=== PATIENT | female | born 1965 | race Caucasian/White ===

== ENCOUNTER 2022-09-03 09:23 | Outpatient (CLI) | payer BC, SELFPAY ==
--- NOTE | ~2022-09-03 | MM_ITS ---
EXAMINATION: MM screening braulio BI w laurie HISTORY: Screening TECHNIQUE: Craniocaudal and mediolateral oblique 3-D tomosynthesis images were obtained and synthetic 2-D images were generated. CAD analysis was submitted and interpreted. COMPARISON: No prior mammogram is available for comparison at this institution. BREAST PARENCHYMAL COMPOSITION: . FINDINGS: New focal asymmetry is present in the central aspect of the right breast on right CC view. The left breast is stable without evidence for malignancy. IMPRESSION: 1. New focal right breast asymmetry. 2. Additional mammographic views and possible breast ultrasound are recommended. BI-RADS Category 0: Incomplete: Needs additional imaging evaluation. Reviewed, dictated and finalized at location A. ARCH MANAGER IMPRESSION: 1. New focal right breast asymmetry. 2. Additional mammographic views and possible breast ultrasound are recommended . BI-RADS Category 0: Incomplete: Needs additional imaging evaluation.
== END 2022-09-03 09:24 | disposition home or self-care (01) ==
PROVIDERS: PCP Family Medicine Adolescent Medicine; Visit Provider Obstetrics & Gynecology
DX: Z12.31 Encounter for screening mammogram for malignant neoplasm of breast (principal); R92.8 Other abnormal and inconclusive findings on diagnostic imaging of breast
CPT/HCPCS: 77063; 77067

== ENCOUNTER 2022-09-29 12:48 | Outpatient (CLI) | payer BC, SELFPAY ==
--- NOTE | ~2022-09-29 | MM_ITS ---
EXAMINATION: MM diagnostic braulio RT w laurie HISTORY: Right breast asymmetry on screening mammogram TECHNIQUE: Additional 3-D tomosynthesis images of the right breast were performed and synthetic 2-D i mages were generated. CAD analysis was submitted and interpreted. COMPARISON: 09/03/2022, 07/20/2017, 11/11/2010 FINDINGS: There is a return to baseline fibroglandular appearance with spot compression of the right breast in the area questioned on screening mammogram. IMPRESSION: 1. No mammographic evidence of malignancy. 2. Recommend routine screening mammography in one year. BI-RADS Category 1: Negative Reviewed, dictated and finalized at location A. NESS CONSULTANT
== END 2022-09-29 12:49 | disposition home or self-care (01) ==
LOC: ANHIMG 12:49
PROVIDERS: PCP Family Medicine Adolescent Medicine; Visit Provider Obstetrics & Gynecology
DX: R92.8 Other abnormal and inconclusive findings on diagnostic imaging of breast (principal)
CPT/HCPCS: 77061; 77065; G0279

== ENCOUNTER 2022-10-02 01:55 | Day surgery (SDC) | payer BC, SELFPAY ==
[2022-09-23 09:23] VITALS: BMI 34.4
--- NOTE | 2022-09-23 09:35 | PC.NURSE ---
Report to the Outpatient Waiting Room, entrance under the green pavilion located off [facility], at time 0730 on date 10/02/22. Planned Procedure Time: 0930. Time changes happen often and if your time is changed the preop area will call you the afternoon before. - You and your visitor will be asked to self-screen and do not enter if you have any COVID symptoms. - Only one visitor is requested with a max of two and NO children visitors are allowed at this time. - The patient visitor may be requested to leave or wait in car when not with patient due to distancing restrictions. - A mask is REQUIRED within the hospital. Patients may have clear liquids (water, carbonated beverages, clear teas, apple juice) until 3 hours prior to surgery with a maximum of 20 ounces. - No food from midnight until time of surgery Take the following medications with a SIP of water the morning of surgery: TYLENOL IF NEEDED Medications to discontinue per physician: DICLOFENAC Date to take last dose: PT STATES 7 DAYS PRE-OP PER DR. MUNSON Please no make-up, nail vincentian, hairspray, perfume, deodorant, or body powder the day of surgery. No jewelry (including any body piercings) or valuables the day of surgery, leave them at home. Please take a shower or bath the night before, or the morning of, surgery with an antibacterial soap. Wear comfortable, loose fitting clothing. - Jewelry must be removed prior to entering the operating room. Rings and piercings that are not removed may be cut off. - The hospital will not accept responsibility for valuables. - Please leave all valuables, including medications, at home the day of surgery. If you are going home after surgery, a licensed commercial trailer truck driver must drive you home. - NO public transportation without another adult if you receive anesthesia. - We recommend that an adult stay with you for 24 hours following discharge. - We also recommend that you do not drive, make important decision, drink alcoholic beverages, or take any drugs that were not prescribed by your health care provider for at least 24 hours after your discharge time. Follow any additional instructions given to you from your surgeon. If you or anyone in your household have experienced Covid symptoms in the past week, please notify your surgeon or the nurse liaison at the phone number below for possible testing. Telephone instructions given to PT - MAYTECINE KEMPFER and asked if any additional questions and then verbalized understanding. Patient advised to call surgeon office or pre surgery nurse liaison [phone] if any additional questions.
[2022-10-02] VITALS (15 sets, daily range): BP systolic 98–145; BP diastolic 60–92; PULSE 48–75; RESP 12–20; TEMP 36.4; O2SAT 92–100
--- NOTE | ~2022-10-02 | XR_ITS ---
EXAMINATION: XR surgery orthopedic DATE: 10/02/2022 10:00 INDICATION: Left foot arthrodesis TECHNIQUE: 2 fluoroscopic images of the left forefoot were obtained during procedure performed by Dr. Rosa. Radiologist was not present for the imaging or procedure. The amount of fluoroscopy time u sed during this procedure was 0.1 minutes. COMPARISON: None. FINDINGS: Changes of a left first metatarsophalangeal arthrodesis with dorsal plate and screw fixatio n. Alignment appears near-anatomic. No fracture. Remaining joint spaces appear relatively preserved. Expected small amount of soft tissue gas at the operative bed. IMPRESSION: 1. Expected appearance post internally fixed left first metatarsophalangeal arthrodesis. Reviewed, dictated and finalized at location A. ARCHITECT IMPRESSION: 1. Expected appearance post internally fixed left first metatarsophalangeal art hrodesis.
--- NOTE | 2022-10-02 07:13 | WPDHPUPDATE1 ---
History and Physical Update Update Date/Time: 10/02/22 07:13 History and Physical has been reviewed, including an updated exam of the patient. There are NO changes in the patient's condition. Risks, benefits, and alternatives have been discussed and questions answered. Patient agrees to proceed with procedure.
--- NOTE | 2022-10-02 08:23 | P.PNAN_ITS ---
Anes - Initial Pre Proc Eval Procedure: Operation Date: 10/02/22 09:30 Proposed Procedures p Arthrodesis First Metatarsal Phalangeal Joint Left Foot - Tacho Rosa JR, MD Date/Time: 10/02/22 08:23 Surgeon: Tacho Rosa JR, MD Pre Op Diagnosis: Arthritis 1st MPJ Left Foot Patient Data Age: 57 Gender: F Height: 1.7 m Weight: 99.8 kg Allergies Allergy/AdvReac Type Severity Reaction Status Date / Time meperidine Allergy Unknown Rash Verified 09/23/22 09:18 Home Medications Medication Instructions Recorded Confirmed Type acai cook extract 500 mg capsule 500 mg PO DAILY 09/23/22 09/23/22 History acetaminophen 500 mg tablet 1,000 mg PO Q6H PRN Headache 09/23/22 09/23/22 History diclofenac sodium 75 mg 75 mg PO BID 09/23/22 09/23/22 History tablet,delayed release estradiol 2 mg tablet 2 mg PO DAILY 09/23/22 09/23/22 History omeprazole 20 mg capsule,delayed 20 mg PO DAILY 09/23/22 09/23/22 History release semaglutide (weight loss) 2.4 2.4 mg subcut WEEKLY 09/23/22 09/23/22 History mg/0.75 mL subcutaneous pen injector (Wegovy) Patient hx anesthesia problems: none Family hx anesthesia problems: none Results Review: All pre-operative results and documents have been reviewed as part of the pre- operative evaluation. [facility] Family History Family History (Updated 12/31/16 @ 10:35 by DOCTOR UNKNOWN) Mother Family history of arthritis Grandparent Family history of malignant neoplasm Social History Social History Smoking status: Never smoker Alcohol intake: current Alcohol use details: 3-4/YEAR Substance use: never Substance use type: does not use Living arrangements: with family Additional living arrangements comments: SON Spiritual care concerns: No Anes - Eval Final PreProcedure Day of Procedure 10/02/22 08:23 Patient weight: obese Heart: regular rate and rhythm Lungs: clear to auscultation Airway: Mallampati scale class II Neurological: alert and oriented Last oral intake: >/= 8 hours ASA classification: III Emergent: no Anesthetic plan: proceed Anesthesia type and monitoring: general LMA and standard monitoring Results Review: All pre-operative results and documents have been reviewed as part of the pre- operative evaluation. Informed Consent: The patient's anesthetic plan and its attendant risks and benefits were disc ussed with the patient/family/POA. Questions were solicited and answers provided to the satisfaction of the patient/family/POA.
[2022-10-02] MEDS: LACTATED RINGERS 1,000 ML 30 ML IV CONT ×2 (08:40→11:28)
--- NOTE | 2022-10-02 08:54 | WPDANESPNB ---
Anes - Peripheral Nerve Block Date/Time: 10/02/22 08:54 I have discussed with the patient/family/POA the placement of a peripheral nerve block for post-operative pain management, including associated risks, benefits, complications, and side effects. Alternative methods of post-operative analgesia were detailed. Questions were solicited and answers provided to the satisfaction of the patient/family/POA. Time-Out: A pre-procedural Time-Out was completed immediately before starting the procedure and confirmed: Patient Identification, Site, Procedure, Patient Position and the Availability of Requisite Equipment. Clinical Indications: Acute post-operative pain management requested by the operative surgeon. Nerve Block Insertion Note Anes-nerve block: posterior fossa sciatic left and adductor canal left Patient position: supine (for adductor canal) and other (right lateral for popliteal) Skin prep: chlorhexidine Needle: 22 gauge, stimulating, insulated echogenic needle. Needle length: 80 mm Technique: nerve stimulation lost at (mA) (for popliteal lost at 0.2) and ultrasound Injectate: bupivacaine 0.5% with epi 5 mcg/ml (20 mL for popliteal, 10 mL for adductor canal (no epi)) Observations: tolerated well Complications: none Procedure start time:: 907 Procedure end time:: 912
[2022-10-02] MEDS: ceFAZolin 2 GM/D5W 50 ML 2 GM/50 ML BAG IVPB (09:14)
[2022-10-02] MEDS: fentaNYL CITRATE INJ (*CRX) 100 MCG/2 ML VIAL 25 MCG IV PUSH ×8 (10:26→11:11)
--- NOTE | 2022-10-02 10:26 | W.PM.PROC2 ---
Procedure Note - Detailed Date of Procedure 10/02/22 Pre-op Diagnosis Arthritic bunion deformity left foot Post-op Diagnosis Same Procedure Performed Arthrodesis of the first metatarsal phalangeal joint left foot Surgeon Tacho Rosa JR, ANI Anesthesia General and Regional Indications Painful left forefoot at the first metatarsal phalangeal joint left foot Findings Significant broadening of the first metatarsal phalangeal joint left foot with joint denudation Description of Procedure PROCEDURE IN DETAIL: Under mild sedation, the patient was brought into the operating room, placed on the operating table in supine position. A pneumatic ankle tourniquet was placed about the patient's ipsilateral ankle. Following general LMA, and a regional nerve block at the popliteal fossa by the anesthesia department. The foot was then scrubbed, prepped, and draped in the usual aseptic manner. An Esmarch bandage was then used to exsanguinate the patient's foot and the pneumatic ankle tourniquet was then inflated. Surgery began in the following manner: Attention was directed to the dorsal aspect of the 1st metatarsophalangeal joint where there was a large subcutaneous prominence noted along the dorsomedial aspect of the joint. The incision was made starting along the central shaft of the 1st metatarsal and extending just proximal to the interphalangeal joint of the hallux. The incision was continued deep down through the subcutaneous tissues using sharp and blunt dissection. All bleeders were cauterized as necessary. At this point, the dissection was continued down to the level of the periosteum and capsular structures overlying the 1st metatarsophalangeal joint. A full length periosteum and capsular incision was made just medial to the extensor hallucis longus tendon. The periosteum and capsular structures were freed from the base of the proximal phalanx as well as the distal 1st metatarsal. At this point, the 1st metatarsophalangeal joint was identified. There was almost complete loss of articular cartilage to the head of the 1st metatarsal as well as the base of the proximal phalanx. There was significant broadening and hypertrophy of the 1st metatarsophalangeal joint. Utilizing a sagittal bone saw, the hypertrophied 1st metatarsal was resected dorsally, medially, and laterally. A power bur was used to make sure that there were no rough edges and also to further debride the hypertrophic 1st metatarsal. Next, a rongeur was used to resect all hypertrophic base of the proximal phalanx. At this point, the reamer system for the [employer] system was used to denude the degenerative cartilage from the head of the 1st metatarsal as well as the base of the proximal phalanx. The cartilage and subchondral bone were fully debrided utilizing the reamer system until healthy bleeding bone was noted. Next, a 2-0 drill bit was used to further fenestrate the head of the 1st metatarsal as well as the base of the proximal phalanx in order to allow fusion across the 1st metatarsophalangeal joint. Next, a 0.045 inch K-wire was driven from the medial aspect of the base of the proximal phalanx into the head of the 1st metatarsal in order to serve as temporary fixation. A large steel plate was used to make sure that the hallux was in a rectus position both in the sagittal plane as well as the frontal and transverse plane. Excellent position of the hallux was noted. Next, a CrossCHECK plate was placed atop the 1st metatarsophalangeal joint held in position with [place] wires. Utilizing standard principles and techniques, the 2 distal drill holes were drilled and two 2.7mm mm fully-threaded locking screws were driven from dorsal to plantar holding the distal aspect of the plate intact. At this point, a 3.5mm lag screw was driven from dorsal distal to proximal plantar across the 1st metatarsophalangeal joint through the plate system with excellent compressi
[2022-10-02] MEDS: HYDROmorphone HCL INJ (*CRX) 1 MG/ML SYR 0.5 MG IV PUSH ×3 (11:21→11:56)
--- NOTE | 2022-10-02 11:44 | SUR.PHASEI ---
1115- Call to Dr. Ferrer for patient's pain. 200MCG Fentanyl has been given via IV, see MAR. Patient continues to rate pain at a 7 [address] scale[address] Per Dr[address] Ferrer patient can have 0.5MG Dilaudid every 5 minutes IVP up to maximum 2MG. 1144- Dr. Ferrer to PACU to round on patient and assess current pain level. explained nerve block to patient and pain control.
[2022-10-02] MEDS: ONDANSETRON INJ 4 MG/2 ML VIAL IV PUSH (11:53)
[2022-10-02] MEDS: oxyCODONE HCL (*CRX) 5 MG TAB IR PO (12:34)
[2022-10-02] MEDS: KETOROLAC 30 MG/ML VIAL (*BKC) IV PUSH (13:07)
== END 2022-10-02 13:45 | disposition home or self-care (01) ==
PROVIDERS: PCP Family Medicine Adolescent Medicine; Visit Provider Podiatrist Foot & Ankle Surgery
PROC: (CPT 28750; principal; 2022-10-02 09:30)
DX: M21.612 Bunion of left foot (principal); G89.18 Other acute postprocedural pain; E66.9 Obesity, unspecified; Z68.35 Body mass index [BMI] 35.0-35.9, adult
CPT/HCPCS: 28750; 64447; 64445; 99199; A9270; C1713; J0690; J1100; J1170; J1885; J2250; J2405; J2704; J3010; J7120

== ENCOUNTER 2022-11-18 13:48 | Inpatient (IN) | payer BC, SELFPAY ==
--- NOTE | ~2022-11-18 | CT_ITS ---
EXAMINATION: CT abdomen pelvis w con DATE: 11/18/2022 17:43 INDICATION: diffuse abd tenderness, guarding, vomiting TECHNIQUE: Computed tomography (CT) of the abdomen and pelvis was performed with 100 mL Omnipaque-350 intravenous contrast. Automated exposure control and iterative reconstruction technique were employe d. The dose-length product was 1264.21 mGy-cm. COMPARISON: None. FINDINGS: Lower thorax: Unremarkable Liver: Cyst/hemangioma in the left lobe just above the gallbladder fossa. Biliary/Gallbladder: Gallbladder is absent. No bile duct dilation. Pancreas: No mass or duct dilation. Spleen: Granulomas calcifications. Adrenals:No mass. Kidneys: Left midpole cyst. No suspicious mass, stone, or hydronephrosis. GI tract: Multiple loops of mildly dilated small bowel in the right lower abdomen, without focal robles sition point. Uniform bowel wall enhancement. Fluid-filled colon. No large bowel dilation. Normal eduin endix. Mesentery/Peritoneum: No mass or free air. Trace mesenteric fluid. Retroperitoneum: No mass. Atherosclerotic abdominal aortic and/or arterial calcifications. Pelvis: Pelvic organs partially obscured by metal artifact. Surgically absent uterus. Decompressed ur inary bladder. Small volume free pelvic fluid. Soft Tissues: Soft tissues and body wall unremarkable. Bones: No acute osseous finding. Partially visualized uncomplicated appearing right hip arthroplasty . IMPRESSION: Multiple mildly dilated small bowel loops with small volume mesenteric and deep pelvic fluid, may rep resent ileus secondary to enteritis, noting that early/partial obstruction is not excluded. Fluid-nitin led colon as can be seen with diarrheal illness. Reviewed, dictated and finalized at location K. GROUND SUPERVISOR IMPRESSION: Multiple mildly dilated small bowel loops with small volume mesenteric and deep pelvic fluid, may represent ileus secondary to enteritis, noting that early/pa rtial obstruction is not excluded. Fluid-filled colon as can be seen with diarr heal illness.
--- NOTE | ~2022-11-18 | XR_ITS ---
EXAMINATION: XR sm bowel follow through DATE: 11/19/2022 13:59 INDICATION: Small bowel obstruction. TECHNIQUE: Oral contrast was administered, and a time course of radiographs of the abdomen was obtain ed. Fluoroscopy of the small bowel was not performed. Fluoroscopy exposure time was 0 minutes. The to zen number of images was 8. COMPARISON: CT abdomen and pelvis 11/18/2022 FINDINGS: There are multiple dilated loops of small bowel. The distal small bowel is decompressed. Transit time from the stomach to proximal colon was approximately 3 hours and 45 minutes. There is a right hip ar throplasty. IMPRESSION: 1. Dilated small bowel with caliber change in distal small bowel, consistent with adynamic ileus vers us distal small bowel obstruction. Reviewed, dictated and finalized at location A. URNIST IMPRESSION: 1. Dilated small bowel with caliber change in distal small bowel, consistent wi th adynamic ileus versus distal small bowel obstruction.
--- NOTE | ~2022-11-18 | US_ITS ---
Renal-Bladder ultrasound Clinical History: Acute renal sufficiency Technique: Real-time sonographic imaging of the kidneys and urinary bladder was performed. Findings: The right kidney measures 11.2 cm in length and the left kidney measures 11.5 cm. There is no hydronephrosis or renal calculus identified. Renal cortical echogenicity is within normal limits. Probable left renal cyst noted. The urinary bladder is moderately distended at the time of this exam. No intraluminal echoes are iden tified. No abnormal wall thickening is seen. Impression: Unremarkable ultrasound of the kidneys and urinary bladder. Reviewed, dictated and finalized at location M. [employer] Impression: Unremarkable ultrasound of the kidneys and urinary bladder.
[2022-11-18 14:09] VITALS: BP 111/78; PULSE 107; RESP 12; TEMP 36.3; O2SAT 100
[2022-11-18 14:39] LABS: Basophils Absolute Auto 0.1 K/mm3 (0.0-0.1); Basophils Percent Auto 0.7 % (0.2-1.2); Hematocrit 44.8 % (37.0-47.0); Hemoglobin 14.5 g/dL (12.0-15.0); Immature Granulocyte Absolute 0.04 K/mm3 (0.00-0.031); Immature Granulocyte Percent A 0.3 % (0-0.5); Lymphocytes Absolute Auto 4.12 K/mm3 (0.9-3.2); Lymphocytes Percent Auto 34.2 % (18.3-44.2); Mean Corpuscular HGB Conc 32.4 g/dl (32-36); Mean Corpuscular Volume 89.6 fl (80-100); Mean Platelet Volume 9.3 fl (7.4-10.4); Monocytes Absolute Auto 1.1 K/mm3 (0.1-0.6); Monocytes Percent Auto 8.8 % (2.6-8.5); Neutrophils Absolute Auto 6.8 K/mm3 (1.3-6.7); Platelet Count Result 409 k/mm3 (150-375); Red Cell Distribution Width 14.9 % (11.5-14.5); White Blood Count 12.1 K/mm3 (4.5-10.0)
[2022-11-18 14:49] LABS: Alanine Aminotransferase 18 U/L (6-35); Albumin Level 4.8 g/dL (3.5-5.1); Alkaline Phosphatase 107 U/L (38-126); Anion Gap 9 mmol/L (8-16); Aspartate Amino Transferase 19 U/L (14-36); Bilirubin,Total 0.7 mg/dL (0.2-1.3); Blood Urea Nitrogen 19 mg/dL (7-17); Calcium 9.8 mg/dL (8.4-10.2); Carbon Dioxide 26 mmol/L (22-30); Chloride 100 mmol/L (98-107); Estimated CRCL calculation 53 ml/min; Estimated Glomerular Filt Rate 42; Glucose 117 mg/dL (65-110); Lipase 56 U/L (23-300); Potassium 4.2 mmol/L (3.4-5.0); Sodium 135 mmol/L (137-145)
[2022-11-18 16:50] VITALS: BP 149/94; PULSE 93; RESP 18; O2SAT 99
--- NOTE | 2022-11-18 16:58 | ED.ABDPAIN ---
HPI - Abdominal Pain General Chief Complaint: Abdominal Pain <Thania Goodwin PA-C - Last Filed: 11/18/22 21:11> Stated Complaint: N/V/D X3 days, abdominal pain <Thania Goodwin PA-C - Last Filed: 11/18/22 21:11> Time Seen by Provider: 11/18/22 16:51 <MARY Andino Last Filed: 11/18/22 21:11> History of Present Illness HPI narrative: Patient is a 57-year-old female here for evaluation of diffuse abdominal pain over the past 3 days. Patient states that she woke up with cramping sensation in her stomach 3 days ago. This is associated with numerous episodes of vomiting and nonbloody diarrhea. States that the pain has been intermittent in nature since, coming in waves. She is unable to tolerate any p.o. over the past 3 days. Reports subjective fevers. Denies sick contacts. She last had Taco Lema before her symptoms came on. She is status post 2 partial hysterectomies and cholecystectomy. <Thania Goodwin PA-C - Last Filed: 11/18/22 21:11> Related Data Home Medications: Home Medications Medication Instructions Recorded Confirmed acai cook extract 500 mg capsule 500 mg PO DAILY 09/23/22 11/18/22 acetaminophen 500 mg tablet 1,000 mg PO Q6H PRN Headache 09/23/22 11/18/22 diclofenac sodium 75 mg 75 mg PO BID 09/23/22 11/18/22 tablet,delayed release estradiol 2 mg tablet 2 mg PO DAILY 09/23/22 11/18/22 omeprazole 20 mg capsule,delayed 20 mg PO DAILY 09/23/22 11/18/22 release semaglutide (weight loss) 2.4 2.4 mg subcut WEEKLY 09/23/22 11/18/22 mg/0.75 mL subcutaneous pen injector (James) <MARY Andino Last Filed: 11/18/22 21:11> Allergies/Adverse Reactions: Allergies Allergy/AdvReac Type Severity Reaction Status Date / Time meperidine Allergy Unknown Rash Verified 11/18/22 22:37 <Thania Goodwin PA-C - Last Filed: 11/18/22 21:11> Review of Systems Review of Systems: Gen.: Denies fevers or chills Eyes: Denies eye pain or visual change ENT: Denies congestion Respiratory: Denies shortness of breath or cough CV: Denies chest pain or palpitations GI: Reports abdominal pain, nausea, vomiting and diarrhea denies burning, urgency, frequency or hematuria Musculoskeletal: Denies back pain or muscle pain Neuro: Denies numbness, tingling, weakness or focal weakness Skin: Denies rash Except as documented, all other systems reviewed and negative <Thania Goodwin PA-C - Last Filed: 11/18/22 21:11> [facility] Past Medical History Medical History: Medical History Asthma History of traumatic brain injury short term memory loss JUAN (obstructive sleep apnea) no longer needs cpap <Thania Goodwin PA-C - Last Filed: 11/18/22 21:11> Surgical History Surgical History: Surgical History History of laparoscopic cholecystectomy 2007 History of laparoscopy History of ovarian cystectomy History of partial hysterectomy History of total abdominal hysterectomy History of total right hip arthroplasty <Thania Goodwin PA-C - Last Filed: 11/18/22 21:11> Family History Family History: Family History Mother Family history of arthritis Grandparent Family history of malignant neoplasm Sibling Diabetes mellitus Hx of heart surgery <Thania Goodwin PA-C - Last Filed: 11/18/22 21:11> Social History Social History: Social History Smoking packs per day: 1.5 Smoking cigarettes per day: 30.0 Smoking status: Former smoker Smoking end date: 11/18/17 Alcohol intake: current Drinks per week: 1 Alcohol use details: 3-4/YEAR Substance use: never Substance use type: does not use Lack of Transportation: No Lack of Food: Never True Current Housing:
[2022-11-18] MEDS: LACTATED RINGERS 1,000 ML 999 ML IV CONT (17:07)
[2022-11-18] MEDS: ONDANSETRON INJ 4 MG/2 ML VIAL IV PUSH (17:07)
[2022-11-18] MEDS: FAMOTIDINE 20 MG/2 ML VIAL IV PUSH (17:20)
[2022-11-18 18:16] VITALS: BP 106/69
[2022-11-18] MEDS: MORPHINE SULFATE (*CRX) 4 MG/ML INJ IV PUSH ×2 (18:41→20:31)
[2022-11-18] MEDS: SODIUM CHLORIDE 0.9% IV 1,000 ML 999 ML IV CONT (18:45)
[2022-11-18 18:56] LABS: Lactic Acid Reflex 1.3 mmol/L (0.7-2.0)
[2022-11-18 19:09] LABS: Appearance Urine Clear (Clear); Bacteria Urine None Seen /hpf; Bilirubin Urine Negative (Negative); Blood Urine Negative (Negative); Color Urine Yellow (Yellow); Glucose Urine UA Negative (Negative); Ketones Urine Negative (Negative); Leukocyte Esterase Ur Negative LEU/UL (Negative); Nitrate Urine Negative (Negative); Non Pathogenic Casts 0-2; Protein Urine Trace mg/dL (Negative); RBC Urine 0-2 /hpf (0-2); Squamous Epithelial Cell Urine None seen /hpf (Few); Urobilinogen Urine 0.2 mg/dL (<2.0); WBC Urine 0-5 /hpf; pH Urine 5.5 (5.0-9.0)
[2022-11-18 19:23] LABS: Add Urine Microscopic? YES; Specific Grav Ur 1.089 (1.001-1.035)
[2022-11-18] MEDS: LACTATED RINGERS 1,000 ML 150 ML IV CONT (20:29)
[2022-11-18 20:43] VITALS: BP 123/69; PULSE 75; RESP 16; O2SAT 99
[2022-11-18 21:05] VITALS: BP 125/81; PULSE 79; RESP 16; O2SAT 95
--- NOTE | 2022-11-18 21:06 | PM.IMHP ---
H&P: HPI History of Present Illness Date/Time: 11/18/22 21:06 Chief Complaint: Abdominal pain Narrative: This is a 57-year-old female with past medical history significant for multiple intra-abdominal surgeries, obstructive sleep apnea, asthma. Patient presents to the emergency room with 2 days of abdominal pain diffusely localize, with some nausea, vomiting, has not been able to eat for the last day or so, denies any diarrhea, had a normal bowel movement denies any melena or bright red blood per rectum or hematemesis or coffee-ground emesis, has been in her usual state of health up until this point, no fevers, no rigors, no chills, no cough, no sputum production. Preliminary workup was significant for creatinine of 1.[address] of abdomen and pelvis was reported as: FINDINGS: Lower thorax: Unremarkable Liver: Cyst/hemangioma in the left lobe just above the gallbladder fossa.? Biliary/Gallbladder: Gallbladder is absent. No bile duct dilation. Pancreas: No mass or duct dilation. Spleen: Granulomas calcifications. Adrenals:No mass. Kidneys: Left midpole cyst. No suspicious mass, stone, or hydronephrosis. GI tract: Multiple loops of mildly dilated small bowel in the right lower abdomen, without focal transition point. Uniform bowel wall enhancement. Fluid-filled colon. No large bowel dilation. Normal appendix. Mesentery/Peritoneum: No mass or free air. Trace mesenteric fluid. Retroperitoneum: No mass. Atherosclerotic abdominal aortic and/or arterial calcifications. Pelvis: Pelvic organs partially obscured by metal artifact. Surgically absent uterus. Decompressed urinary bladder. Small volume free pelvic fluid. Soft Tissues: Soft tissues and body wall unremarkable. Bones:? No acute osseous finding. Partially visualized uncomplicated appearing right hip arthroplasty. IMPRESSION: Multiple mildly dilated small bowel loops with small volume mesenteric and deep pelvic fluid, may represent ileus secondary to enteritis, noting that early/partial obstruction is not excluded. Fluid-filled colon as can be seen with diarrheal illness. Patient is been admitted for further evaluation management and treatment. Review of Systems Review of Systems: Abdominal pain, nausea, unable to eat, unable to keep anything down, vomiting Constitutional: Constitutional: Denies chills, Denies fever(s) and Denies malaise Eyes: Eyes: Denies change in vision ENT: Denies dysphagia and Denies odynophagia Cardiovascular: Cardiovascular: Denies chest pain, Denies leg edema and Denies lightheadedness Respiratory: Respiratory: Denies chest congestion, Denies cough, Denies excessive phlegm production, Denies pain on inspiration and Denies dyspnea Gastrointestinal: Gastrointestinal: Reports abdominal pain, Denies melena, Denies hematochezia, Denies coffee ground emesis, Denies dyspepsia, Denies heartburn, Reports nausea and Reports vomiting Genitourinary: Genitourinary: Denies dysuria Musculoskeletal: Musculoskeletal: Denies back pain, Denies myalgias, Denies joint swelling and Denies muscle weakness Integumentary/Breasts: Skin/Breast: Denies rash Neurologic: Denies focal weakness and Denies Sensory deficit (Neuro) Psychiatric: Psychiatric: Reports no additional psychiatric complaints and Reports as per HPI Endocrine: Endocrine: Denies cold intolerance, Denies flushing, Denies heat intolerance, Denies polyphagia, Denies polydipsia and Denies palpitations Hematologic/Lymphatic: Hematologic/Lymphatic: Reports no additional hematologic/lymphatic complaints and Reports as per HPI Allergic/Immunologic: Allergic/Immunologic: Reports no additional allergic/immunologic complaints and Reports as per HPI PMFSH Past Medical History Medical History (Updated 11/19/22 @ 02:04 by Juan Chang MD) Asthma History of traumatic brain injury short term memory loss JUAN (obstructive sleep apnea) no longer needs cpap Family History Family History (Updated 11/18/22 @ 22:54 by Sudhir
--- NOTE | 2022-11-18 21:22 | PC.NURSE ---
Patient arrived on 3 Med-Surg at 21:15
[2022-11-18 22:00] VITALS: BP 135/75; PULSE 95; RESP 16; TEMP 35.9; O2SAT 97
[2022-11-18 22:42] VITALS: BMI 35.2
[2022-11-19] MEDS: HYDROmorphone HCL INJ (*CRX) 1 MG/ML SYR 0.5 MG IV PUSH ×2 (03:55→10:08)
[2022-11-19 06:00] VITALS: BP 125/60; PULSE 68; RESP 18; TEMP 35.9; O2SAT 98
[2022-11-19] MEDS: SODIUM CHLORIDE 0.9% IV 1,000 ML 100 ML IV CONT ×2 (11:04→20:26)
[2022-11-19 12:02] LABS: Hemoglobin 11.6 g/dL (12.0-15.0); Mean Corpuscular HGB Conc 32.2 g/dl (32-36); Mean Corpuscular Hemoglobin 29.1 pg (26-34); Mean Corpuscular Volume 90.5 fl (80-100); Mean Platelet Volume 9.3 fl (7.4-10.4); Platelet Count Result 321 k/mm3 (150-375); Red Blood Count 3.98 M/mm3 (4.2-5.4); Red Cell Distribution Width 14.6 % (11.5-14.5); White Blood Count 8.4 K/mm3 (4.5-10.0)
[2022-11-19 12:17] LABS: Anion Gap 6 mmol/L (8-16); Blood Urea Nitrogen 13 mg/dL (7-17); Calcium 8.5 mg/dL (8.4-10.2); Carbon Dioxide 26 mmol/L (22-30); Chloride 104 mmol/L (98-107); Estimated CRCL calculation 84 ml/min; Estimated Glomerular Filt Rate > 60; Glucose 88 mg/dL (65-110); Potassium 3.7 mmol/L (3.4-5.0); Sodium 136 mmol/L (137-145)
--- NOTE | 2022-11-19 13:02 | PM.CNGS ---
Assessment and Plan Assessment and plan (1) Partial small bowel obstruction: Code(s): K56.600 - Partial intestinal obstruction, unspecified as to cause Status: Acute Assessment and Plan: CT suggests ileus secondary to enteritis versus early or partial small bowel obstruction. Water soluble small bowel follow through in the process, will await results. It is reassuring that she does not have a high-grade small bowel obstruction considering her bowels have continued to move. This could be related to gastroenteritis, but there is some possibility of intra-abdominal adhesions with all of her previous abdominal surgeries. Recommend to keep her NPO with IV fluids and analgesics as needed while awaiting the small bowel follow through. If the contrast moves through to the colon without evidence of a high-grade obstruction, we will start her on a liquid diet and advance as tolerated. Currently her nausea/vomiting has subsided. (2) Enteritis: Code(s): K52.9 - Noninfective gastroenteritis and colitis, unspecified Status: Acute Assessment and Plan: Continue medical management, IV fluids, antiemetics as needed. (3) DHEERAJ (acute kidney injury): Code(s): N17.9 - Acute kidney failure, unspecified Status: Acute Assessment and Plan: Likely related to dehydration from vomiting and diarrhea. Improved this morning with IV fluid hydration. Creatinine from 1.3 to 0.8. Renal US negative. Continue to monitor. (4) JUAN (obstructive sleep apnea): Code(s): G47.33 - Obstructive sleep apnea (adult) (pediatric) Status: Acute (5) Obesity (BMI 30-39.9): Code(s): E66.9 - Obesity, unspecified Status: Acute Plan I have discussed the patient's case and plan of care with Dr. Abad. Thank you for allowing us to see the patient in consultation and we will continue to follow along with you. History of Present Illness Consult details Consult date: 11/19/22 Reason for consult: other (Partial small bowel obstruction) Requesting physician: Thania Goodwin PA-C Narrative: This is a 57-year-old woman with a history of obstructive sleep apnea and asthma, who presented to the emergency department yesterday with complaints of vomiting, diarrhea, and abdominal pain for 3 days. She reports waking up early Wednesday morning with vomiting and diarrhea. This continued for the next 3 days. She was able to try to eat some breakfast on Wednesday and tolerated this well, but after eating chicken noodle soup for lunch she had a significant increase in her abdominal pain. She reports more bloating. She then vomited shortly after and continued vomiting that night and into the next day. She reports noticing that day her emesis was bilious appearing. No coffee-ground or bloody emesis. She was having 5-6 diarrheal stools daily. The diarrhea seemed to improve some yesterday. Her abdominal pain progressively became more severe, therefore she came into the ER for evaluation. CT scan of abdomen and pelvis showed multiple mildly dilated small-bowel loops with small volume mesenteric and deep pelvic fluid that could represent ileus secondary to enteritis, but early partial small-bowel obstruction is not excluded. No focal transition point identified. Also noted was fluid in the colon consistent with a diarrheal illness. [place] [address], BUN 19, creatinine 1.3. She was admitted to the hospitalist service. Our service was consulted for the possible partial small-bowel obstruction. NG tube was deferred in the ER as her abdomen was not distended and she was not vomiting. A water-soluble small bowel follow-through was ordered for this morning. The patient is seen after having her initial images of this study. She denies any nausea or vomiting this morning after receiving the contrast. She has continued to have diarrhea since admission with at least 4 bowel movements already this morning. She does feel
[2022-11-19] MEDS: ENOXAPARIN 40 MG/0.4 ML SYRINGE SUB-Q (13:11)
[2022-11-19 14:00] VITALS: BP 117/59; PULSE 77; RESP 20; TEMP 36.6; O2SAT 95
--- NOTE | 2022-11-19 14:54 | PM.IMPN ---
Progress Note: A&P Assessment and Plan (1) Partial small bowel obstruction: Code(s): K56.600 - Partial intestinal obstruction, unspecified as to cause Status: Acute Assessment and Plan: presented with abdominal pain, nausea, vomiting, and diarrhea CT of the abdomen/ pelvis on presentation showed multiple mildly dilated small bowel loops with small volume mesenteric and deep pelvic fluid which may represent ileus versus early/partial obstruction patient is NPO except ice chips gentle IV fluids while NPO appreciate general surgery consultation small-bowel follow-through completed today which showed transit of contrast to the colon at 3:00 a.m. and 45 minutes. No evidence of high-grade obstruction does reveal findings consistent with ileus versus partial SBO continue supportive care to include antiemetics and analgesics (2) Diarrhea: Code(s): R19.7 - Diarrhea, unspecified Status: Acute Assessment and Plan: patient with frequent episodes of loose stool. reports 6-7 episodes of watery diarrhea today concern for gastroenteritis resulting ileus will obtain stool cultures does not appear to be infectious this patient has no fever and resolution of leukocytosis without intervention hold on antibiotics at this time while awaiting cultures and monitor clinically (3) JUAN (obstructive sleep apnea): Code(s): G47.33 - Obstructive sleep apnea (adult) (pediatric) Status: Acute Assessment and Plan: continue home CPAP (4) DHEERAJ (acute kidney injury): Code(s): N17.9 - Acute kidney failure, unspecified Status: Acute Assessment and Plan: resolved. Creatinine was 1.3 on presentation improved following IV fluid rehydration. Creatinine is 0.8 today. renal ultrasound unremarkable Continue to monitor BMP Subjective Date/time seen: 11/19/22 14:54 Interval history: date of service: 11/19/2022 Alberto West is a 57-year-old female with history of JUAN, TBI, and asthma is seen in follow-up for partial SBO. Patient complains of persistent abdominal pain today worse when she is up and moving around. She had just gotten up for the bathroom on my encounter and at that time her pain was 8/10. Now that she is resting her pain is come down to about 5/10. States that her pain is diffuse throughout her entire abdomen. She denies any episodes of nausea or vomiting today, however notes significant nausea yesterday. Reports about 6-7 episodes of watery brown stool today. She denies fevers, chills, shortness of breath, cough, dizziness, or lightheadedness. Review of Systems Review of Systems: All systems reviewed & are unremarkable except as noted in HPI and below Exam Narrative: General: Well-nourished, well-appearing 57-year-old female, sitting in bed, comfortable, NARD Neuro: awake, alert and oriented x4, speech clear, no focal neuro deficits noted HEENMT: normocephalic, atraumatic, EOMI, sclerae anicteric, moist oral mucosa Respiratory: clear to auscultation bilaterally, nonlabored breathing Cardio: regular rate, regular rhythm with S1-S2 Abdomen: nondistended, normoactive bowel sounds, soft, diffusely tender to palpation Extremities: no edema, erythema, or tenderness to palpation, DP pulses 2+ bilaterally Skin: no rashes or lesions, warm and dry Psych: appropriate mood and affect, judgment and insight intact Objective Data Vital Signs Vital Signs: Vital Signs - 24 hr 11/18/22 16:50 11/18/22 18:16 11/18/22 20:43 Temperature Pulse Rate 93 75 Respiratory Rate 18 16 Blood Pressure 149/94 H 106/69 123/69 Pulse Oximetry 99 99 Oxygen Delivery 11/18/22 21:05 11/18/22 22:00 11/19/22 01:22 Temperature 96.6 F L Pulse Rate 79 95 Respiratory Rate 16 16 Blood Pressure 125/81 135/75 Pulse Oximetry 95 97 Oxygen Delivery Room Air 11/19/22 06:00 Temperature 96.6 F L Pulse Rate 68 Respiratory Rate 1
--- NOTE | 2022-11-19 15:05 | PM.IMHP ---
H&P: HPI History of Present Illness Date/Time: 11/19/22 15:05 Chief Complaint: Abdominal pain PMFSH Past Medical History Medical History Asthma History of traumatic brain injury short term memory loss JUAN (obstructive sleep apnea) no longer needs cpap Surgical History Surgical History History of laparoscopic cholecystectomy 2007 History of laparoscopy History of ovarian cystectomy History of partial hysterectomy History of total abdominal hysterectomy History of total right hip arthroplasty Family History Family History Mother Family history of arthritis Grandparent Family history of malignant neoplasm Sibling Diabetes mellitus Hx of heart surgery Social History Social History Smoking packs per day: 1.5 Smoking cigarettes per day: 30.0 Smoking status: Former smoker Smoking end date: 11/18/17 Alcohol intake: current Drinks per week: 1 Alcohol use details: 3-4/YEAR Substance use: never Substance use type: does not use Lack of Transportation: No Lack of Food: Never True Current Housing: I Have Housing Concerned About Future Housing: No Difficulty Paying Gas/Electric Bills: No Difficulty Paying for Meds: No Currently Unemployed: No Education: Master's Degree or Higher Difficulty w/ Childcare or Family Care: No Living arrangements: with family Additional living arrangements comments: SON Spiritual care concerns: No Meds Home Medications and Allergies Home Medications Medication Instructions Recorded Confirmed Type acai cook extract 500 mg capsule 500 mg PO DAILY 09/23/22 11/18/22 History acetaminophen 500 mg tablet 1,000 mg PO Q6H PRN Headache 09/23/22 11/18/22 History diclofenac sodium 75 mg 75 mg PO BID 09/23/22 11/18/22 History tablet,delayed release estradiol 2 mg tablet 2 mg PO DAILY 09/23/22 11/18/22 History omeprazole 20 mg capsule,delayed 20 mg PO DAILY 09/23/22 11/18/22 History release semaglutide (weight loss) 2.4 2.4 mg subcut WEEKLY 09/23/22 11/18/22 History mg/0.75 mL subcutaneous pen injector (Wegovy) Allergies Allergy/AdvReac Type Severity Reaction Status Date / Time meperidine Allergy Unknown Rash Verified 11/18/22 22:37 Vital Signs Vital Signs - 24 hr 11/18/22 16:50 11/18/22 18:16 11/18/22 20:43 Temperature Pulse Rate 93 75 Respiratory Rate 18 16 Blood Pressure 149/94 H 106/69 123/69 Pulse Oximetry 99 99 Oxygen Delivery 11/18/22 21:05 11/18/22 22:00 11/19/22 01:22 Temperature 35.9 C L Pulse Rate 79 95 Respiratory Rate 16 16 Blood Pressure 125/81 135/75 Pulse Oximetry 95 97 Oxygen Delivery Room Air 11/19/22 06:00 Temperature 35.9 C L Pulse Rate 68 Respiratory Rate 18 Blood Pressure 125/60 Pulse Oximetry 98 Oxygen Delivery H&P: Results Labs Labs: Short CBC 11/19/22 Range/Units 11:34 WBC 8.4 (4.5-10.0) K/mm3 Hgb 11.6 L (12.0-15.0) g/dL Hct 36.0 L (37.0-47.0) % Plt Count 321 (150-375) k/mm3 BMP 11/19/22 11:34 Sodium 136 L Potassium 3.7 Chloride 104 Carbon Dioxide 26 BUN 13 D Creatinine 0.80 Glucose 88 Calcium 8.5 Urine 11/18/22 Range/Units 18:40 Urine Color Yellow (Yellow) Urine Appearance Clear (Clear) Urine pH 5.5 (5.0-9.0) Ur Specific [place] 1.089 H (1.001-1.035) Urine Protein Trace (Negative) mg/dL Urine Glucose (UA) Negative (Negative) mg/dL
[2022-11-19 22:00] VITALS: BP 112/65; PULSE 72; RESP 18; TEMP 36.2; O2SAT 97
[2022-11-20] MEDS: HYDROmorphone HCL INJ (*CRX) 1 MG/ML SYR 0.5 MG IV PUSH ×2 (02:48→08:06)
[2022-11-20 06:00] VITALS: BP 133/75; PULSE 74; RESP 16; TEMP 36.1; O2SAT 99
[2022-11-20 07:04] LABS: Hematocrit 33.5 % (37.0-47.0); Hemoglobin 10.9 g/dL (12.0-15.0); Mean Corpuscular HGB Conc 32.5 g/dl (32-36); Mean Corpuscular Hemoglobin 28.8 pg (26-34); Mean Corpuscular Volume 88.4 fl (80-100); Mean Platelet Volume 9.8 fl (7.4-10.4); Platelet Count Result 305 k/mm3 (150-375); Red Blood Count 3.79 M/mm3 (4.2-5.4); Red Cell Distribution Width 14.3 % (11.5-14.5); White Blood Count 6.7 K/mm3 (4.5-10.0)
[2022-11-20 07:07] LABS: Anion Gap 4 mmol/L (8-16); Blood Urea Nitrogen 12 mg/dL (7-17); Calcium 8.2 mg/dL (8.4-10.2); Carbon Dioxide 25 mmol/L (22-30); Chloride 106 mmol/L (98-107); Estimated CRCL calculation 84 ml/min; Estimated Glomerular Filt Rate > 60; Glucose 79 mg/dL (65-110); Potassium 3.6 mmol/L (3.4-5.0); Sodium 135 mmol/L (137-145)
[2022-11-20 07:42] VITALS: BP 133/75; PULSE 74; RESP 16; TEMP 36.1; O2SAT 99
[2022-11-20] MEDS: ENOXAPARIN 40 MG/0.4 ML SYRINGE SUB-Q (08:07)
--- NOTE | 2022-11-20 10:35 | PM.PNGS ---
Progress Note: A&P Assessment and Plan (1) Enteritis: Code(s): K52.9 - Noninfective gastroenteritis and colitis, unspecified Status: Acute Assessment and Plan: Patient most likely has viral gastroenteritis with resulting small bowel ileus and diarrhea. No obvious evidence of a surgical grade small bowel obstruction is noted. She has been having multiple episodes of diarrhea and so I will start some Imodium to help slow down her diarrhea. We will also go ahead and start her on some clear liquids today and may be advanced to full liquids later. Potassium is low normal level but given her diarrhea will go ahead and give her some oral potassium supplements today. Recheck her CBC and electrolytes tomorrow. Continue supportive management. Subjective Subjective Date/Time Seen: 11/20/22 10:35 Interval history: The patient has remained clinically stable overnight without acute changes. She continues to have multiple nonbloody diarrhea stools and stable mild diffuse abdominal pain. No nausea or vomiting. White blood cell count remains normal and she has had no fever or tachycardia. Water-soluble small bowel follow-through series yesterday showed normal transit time of contrast to the colon in 3hours and 45minutes. Small bowel was diffusely dilated without definite transition point suggestive of adynamic ileus or low-grade small-bowel obstruction. She wants to have something to drink this morning. Review of Systems Review of Systems: The remainder of the review of systems to include constitutional, HEENT, cardiovascular, respiratory, GI, , integumentary, musculoskeletal, endocrine, immunologic, hematologic, psychiatric, and neurologic are all negative except for which is mentioned above in the HPI. Exam Const: General: comfortable and no acute distress Resp: Effort & Inspection: normal respiratory effort Auscultation: clear to auscultation bilaterally Cardio: Rate: regular rate Rhythm: regular rhythm GI: Other: Abdomen is soft and mildly distended. Very mild but stable diffuse tenderness a little worse in the lower abdomen than the upper abdomen. No guarding or diffuse peritoneal signs. No masses are appreciated. Neuro: Speech: normal speech Motor exam (neuro): 5/5 motor strength present throughout Sensory Exam: normal sensation Extrem: General: normal to inspection Psych: Mental Status: mental status grossly normal Affect: normal affect Objective Data Vital Signs Vital Signs: Vital Signs - 24 hr 11/19/22 14:00 11/19/22 22:00 11/19/22 20:26 Temperature 36.6 C 36.2 C L Pulse Rate 77 72 Respiratory Rate 20 18 Blood Pressure 117/59 L 112/65 Pulse Oximetry 95 97 Oxygen Delivery Room Air 11/20/22 06:00 11/20/22 07:42 Temperature 36.1 C L 36.1 C L Pulse Rate 74 74 Respiratory Rate 16 16 Blood Pressure 133/75 133/75 Pulse Oximetry 99 99 Oxygen Delivery Intake/Output Intake/Output: Intake & Output 11/17/22 11/18/22 11/19/22 11/20/22 23:59 23:59 23:59 23:59 Intake Total 2100 1200 330 Output Total 350 Balance 2100 850 330 Meds/Results Medications: Active Medications Generic Name Dose Route Start Last Admin Trade Name Freq PRN Reason Stop Dose Admin Enoxaparin Sodium 40 mg 11/19/22 12:00 11/20/22 08:07 Enoxaparin 40 Mg/0.4 Ml Syringe SUB-Q 40 mg DAILY MEKA Administration Hydromorphone HCl 0.5 mg 11/19/22 03:27 11/20/22 08:06 Hydromorphone Hcl Inj (*Crx) 1 Mg/Ml Syr IV PUSH 0.5 mg Q3H PRN Administration Pain Rated 7-10 Sodium Chloride 1,000 mls @ 100 mls/hr 11/19/22 10:30 11/19/22 20:26 Normal Saline Iv IV CONT 100 mls/hr .Q10H MEKA Administration Loperamide HCl 2 mg 11/20/22 10:28 Loperamide Hcl 2 Mg Capsule PO PRN PRN After each diarrhea stool. Ondansetron HCl 4 mg 11/18/22 20:11 Ondansetron Inj 4 Mg/2 Ml Vial IV PUSH Q4H PRN Nausea Radiology Results: ITS Impressio
--- NOTE | 2022-11-20 12:45 | PM.IMPN ---
Progress Note: A&P Assessment and Plan (1) Partial small bowel obstruction: Code(s): K56.600 - Partial intestinal obstruction, unspecified as to cause Status: Acute Assessment and Plan: presented with abdominal pain, nausea, vomiting, and diarrhea CT of the abdomen/ pelvis on presentation showed multiple mildly dilated small bowel loops with small volume mesenteric and deep pelvic fluid which may represent ileus versus early/partial obstruction Diet advanced to full liquids Can stop IV fluids at this time appreciate general surgery consultation small-bowel follow-through completed showed transit of contrast to the colon at 3:00 hours and 45 minutes. No evidence of high-grade obstruction does reveal findings consistent with ileus versus partial SBO continue supportive care to include antiemetics and analgesics Seems to be resolving (2) Diarrhea: Code(s): R19.7 - Diarrhea, unspecified Status: Acute Assessment and Plan: patient with frequent episodes of loose stool. reports 6-7 episodes of watery diarrhea today concern for gastroenteritis resulting ileus stool cultures ordered Imodium ordered per General surgery does not appear to be infectious this patient has no fever and resolution of leukocytosis without intervention hold on antibiotics at this time while awaiting cultures and monitor clinically (3) JUAN (obstructive sleep apnea): Code(s): G47.33 - Obstructive sleep apnea (adult) (pediatric) Status: Acute Assessment and Plan: continue home CPAP (4) DHEERAJ (acute kidney injury): Code(s): N17.9 - Acute kidney failure, unspecified Status: Acute Assessment and Plan: resolved. Creatinine was 1.3 on presentation improved following IV fluid rehydration. Creatinine remained 0.8 today. renal ultrasound unremarkable Continue to monitor BMP Time Spent With Patient Time: 36 minutes Time with patient: Greater than 35 minutes Subjective Date/time seen: 11/20/221244 Interval history: 11/20/221244 Patient was resting in bed. Patient stated that she is really wanting to be advanced on her diet. She currently rates her pain a 2 to 3/10. She did state that eating did make her pain better. She denies any nausea, vomiting, shortness of breath. She did state that she is having some chest heaviness however she stated that is not chest pain is more anxiety ridden and just being stressed out. She is claiming to have some pretty significant diarrhea which she stated was yellow and brown sometimes watery sometimes thicker than that. Overall she does feel better. She does still have some pain especially when she laughs. She stated that mostly the pain is generalized throughout the entire abdomen. Her sister was present through the interview in the interview conducted with permission of the patient with her sister present. Spoke with Dr. Goldman who stated that the patient can be advanced to full liquids but would wait to start her on anything solid till tomorrow. Patient would like to be advanced to full liquids and is wanting a chocolate milkshake. Patient has been currently tolerating clear liquids including white soda, Jell-O, broth. 11/19/2022 Alberto West is a 57-year-old female with history of JUAN, TBI, and asthma is seen in follow-up for partial SBO. Patient complains of persistent abdominal pain today worse when she is up and moving around. She had just gotten up for the bathroom on my encounter and at that time her pain was 8/10. Now that she is resting her pain is come down to about 5/10. States that her pain is diffuse throughout her entire abdomen. She denies any episodes of nausea or vomiting today, however notes significant nausea yesterday. Reports about 6-7 episodes of watery brown stool today. She denies fevers, chills, shortness of breath, cough, dizziness, or lightheadedness. 11/18/22? 21:06 C
[2022-11-20 14:00] VITALS: BP 102/44; PULSE 66; RESP 16; TEMP 36.4; O2SAT 100
[2022-11-20] MEDS: POTASSIUM CHLORIDE 20 MEQ TABLET 40 MEQ PO (16:43)
[2022-11-20 22:00] VITALS: BP 141/74; PULSE 76; RESP 18; TEMP 36.3; O2SAT 95
[2022-11-21] MEDS: HYDROmorphone HCL INJ (*CRX) 1 MG/ML SYR 0.5 MG IV PUSH ×2 (01:12→14:34)
[2022-11-21 06:00] VITALS: BP 119/66; PULSE 67; RESP 16; TEMP 36.1; O2SAT 99
[2022-11-21 06:28] LABS: Basophils Absolute Auto 0.1 K/mm3 (0.0-0.1); Basophils Percent Auto 0.8 % (0.2-1.2); Eosinophils Percent Auto 0.1 % (0-4.4); Hematocrit 33.7 % (37.0-47.0); Hemoglobin 11.2 g/dL (12.0-15.0); Immature Granulocyte Absolute 0.02 K/mm3 (0.00-0.031); Immature Granulocyte Percent A 0.2 % (0-0.5); Lymphocytes Absolute Auto 4.16 K/mm3 (0.9-3.2); Lymphocytes Percent Auto 48.5 % (18.3-44.2); Mean Corpuscular HGB Conc 33.2 g/dl (32-36); Mean Corpuscular Hemoglobin 28.8 pg (26-34); Mean Corpuscular Volume 86.6 fl (80-100); Mean Platelet Volume 9.8 fl (7.4-10.4); Monocytes Absolute Auto 0.7 K/mm3 (0.1-0.6); Monocytes Percent Auto 8.2 % (2.6-8.5); Neutrophils Absolute Auto 3.6 K/mm3 (1.3-6.7); Neutrophils Percent Auto 42.2 % (45.5-73.1); Platelet Count Result 307 k/mm3 (150-375); Red Blood Count 3.89 M/mm3 (4.2-5.4); White Blood Count 8.6 K/mm3 (4.5-10.0)
[2022-11-21 06:49] LABS: Anion Gap 6 mmol/L (8-16); Blood Urea Nitrogen 5 mg/dL (7-17); Calcium 8.6 mg/dL (8.4-10.2); Carbon Dioxide 24 mmol/L (22-30); Chloride 105 mmol/L (98-107); Estimated CRCL calculation 95 ml/min; Estimated Glomerular Filt Rate > 60; Glucose 102 mg/dL (65-110); Potassium 3.8 mmol/L (3.4-5.0); Sodium 135 mmol/L (137-145)
[2022-11-21] MEDS: ENOXAPARIN 40 MG/0.4 ML SYRINGE SUB-Q (08:31)
[2022-11-21 09:00] VITALS: PULSE 87; RESP 18; O2SAT 97
--- NOTE | 2022-11-21 11:37 | PM.PNGS ---
Progress Note: A&P Assessment and Plan (1) Enteritis: Code(s): K52.9 - Noninfective gastroenteritis and colitis, unspecified Status: Acute Assessment and Plan: Improving with supportive management. Abdominal pain is minimal now. Her diarrhea is slowing down. Potassium is 3.7 today and will give her another dose of oral potassium supplementation. We will go ahead and advance her diet to a low-fat diet today. If tolerated she hopefully will go home later today or tomorrow. Subjective Subjective Date/Time Seen: 11/21/22 11:37 Interval history: Patient is doing better today. Less abdominal pain. Diarrhea is decreasing and she has not had a bowel movement since last evening. She is hungry and wishes to have some solid food. White blood cell count is normal she has been afebrile. Review of Systems Review of Systems: The remainder of the review of systems to include constitutional, HEENT, cardiovascular, respiratory, GI, , integumentary, musculoskeletal, endocrine, immunologic, hematologic, psychiatric, and neurologic are all negative except for which is mentioned above in the HPI. Exam Narrative: Abdomen is soft and nondistended. Minimal tenderness to the bilateral lower quadrants. No rebound or peritoneal signs are noted. Abdomen is relatively benign. Resp: Effort & Inspection: normal respiratory effort Auscultation: clear to auscultation bilaterally Cardio: Rate: regular rate Rhythm: regular rhythm Neuro: Speech: normal speech Motor exam (neuro): 5/5 motor strength present throughout Sensory Exam: normal sensation Psych: Mental Status: mental status grossly normal Affect: normal affect Objective Data Vital Signs Vital Signs: Vital Signs - 24 hr 11/20/22 14:00 11/20/22 22:00 11/20/22 20:00 Temperature 36.4 C 36.3 C L Pulse Rate 66 76 Respiratory Rate 16 18 Blood Pressure 102/44 L 141/74 H Pulse Oximetry 100 95 Oxygen Delivery Room Air 11/21/22 06:00 11/21/22 08:30 11/21/22 09:00 Temperature 36.1 C L Pulse Rate 67 87 Respiratory Rate 16 18 Blood Pressure 119/66 Pulse Oximetry 99 97 Oxygen Delivery Room Air Room Air Intake/Output Intake/Output: Intake & Output 11/18/22 11/19/22 11/20/22 11/21/22 23:59 23:59 23:59 23:59 Intake Total 2100 1200 1550 1762 Output Total 350 Balance 2100 850 1550 1762 Meds/Results Medications: Active Medications Generic Name Dose Route Start Last Admin Trade Name Joneq PRN Reason Stop Dose Admin Enoxaparin Sodium 40 mg 11/19/22 12:00 11/21/22 08:31 Enoxaparin 40 Mg/0.4 Ml Syringe SUB-Q 40 mg DAILY MEKA Administration Hydromorphone HCl 0.5 mg 11/19/22 03:27 11/21/22 01:12 Hydromorphone Hcl Inj (*Crx) 1 Mg/Ml Syr IV PUSH 0.5 mg Q3H PRN Administration Pain Rated 7-10 Loperamide HCl 2 mg 11/20/22 10:28 Loperamide Hcl 2 Mg Capsule PO PRN PRN After each diarrhea stool. Ondansetron HCl 4 mg 11/18/22 20:11 Ondansetron Inj 4 Mg/2 Ml Vial IV PUSH Q4H PRN Nausea Radiology Results: ITS Impressions Abdomen/Pelvis CT 11/18/22 17:59 IMPRESSION: Multiple mildly dilated small bowel loops with small volume mesenteric and deep pelvic fluid, may represent ileus secondary to enteritis, noting that early/partial obstruction is not excluded. Fluid-filled colon as can be seen with diarrheal illness. Renal Ultrasound 11/19/22 08:43 Impression: Unremarkable ultrasound of the kidneys and urinary bladder. Small Bowel X-Ray 11/19/22 14:14 IMPRESSION: 1. Dilated small bowel with caliber change in distal small bowel, consistent with adynamic ileus versus distal small bowel obstruction. Labs Labs: Laboratory Results - last 24 hr 11/21/22 11/21/22 05:42 05:42 WBC 8.6 RBC 3.89 L Hgb 11.2 L Hct 33.7 L MCV 86.6 MCH 28.8 MCHC 33.2 RDW 14.0 Plt Count 307 MPV 9.8 Immature Gran % (Auto) 0.2 Neut %
--- NOTE | 2022-11-21 12:00 | PM.DS ---
DS: Admitting Diagnosis Discharge Date 11/21/22 1200 Admitting Diagnosis Small bowel obstruction DS: Discharge Diagnosis Discharge Diagnosis (1) Partial small bowel obstruction: Code(s): K56.600 - Partial intestinal obstruction, unspecified as to cause Status: Acute Assessment and Plan: presented with abdominal pain, nausea, vomiting, and diarrhea CT of the abdomen/ pelvis on presentation showed multiple mildly dilated small bowel loops with small volume mesenteric and deep pelvic fluid which may represent ileus versus early/partial obstruction Diet advanced to full liquids Can stop IV fluids at this time appreciate general surgery consultation small-bowel follow-through completed showed transit of contrast to the colon at 3:00 hours and 45 minutes. No evidence of high-grade obstruction does reveal findings consistent with ileus versus partial SBO continue supportive care to include antiemetics and analgesics Seems to be resolving (2) Diarrhea: Code(s): R19.7 - Diarrhea, unspecified Status: Acute Assessment and Plan: patient with frequent episodes of loose stool. reports 6-7 episodes of watery diarrhea today concern for gastroenteritis resulting ileus stool cultures ordered Imodium ordered per General surgery does not appear to be infectious this patient has no fever and resolution of leukocytosis without intervention hold on antibiotics at this time while awaiting cultures and monitor clinically (3) JUAN (obstructive sleep apnea): Code(s): G47.33 - Obstructive sleep apnea (adult) (pediatric) Status: Acute Assessment and Plan: continue home CPAP (4) DHEERAJ (acute kidney injury): Code(s): N17.9 - Acute kidney failure, unspecified Status: Acute Assessment and Plan: resolved. Creatinine was 1.3 on presentation improved following IV fluid rehydration. Creatinine remained 0.70 today. renal ultrasound unremarkable Continue to monitor BMP DS: Summary Hospital Course Hospital Course: Patient is a 57-year-old female with a past medical history of TBI, JAUN, asthma, intra-abdominal surgeries who presented to the ED with complaints of abdominal pain for 2 days accompanied with nausea, vomiting and anorexia. Upon arrival abdominal CT showed multiple dilated small loops with small volume mesenteric and deep pelvic fluid representing either an ileus or a early partial obstruction. Small-bowel series was also noted to show some dilated small bowel consistent with ileus. Patient had been started on clear liquids and diet has been advanced slowly. Patient has been able to tolerate a solid diet without any complaints of chest pain, shortness a breath, nausea, vomiting, diarrhea or constipation. Upon arrival patient was also noted to have a slight elevation in her creatinine at 1.3. Current creatinine is 0.7 and patient was given fluids which did help the creatinine get to baseline. Currently patient does have some lower abdominal pain which she states is minimal 1 to 2/10. Labs and vital signs remained stable patient is stable for discharge at this time. Status at Discharge Functional status at discharge: independent ambulation Overall status at discharge: patient is progressing back to baseline Time Spent with Patient Time attestation: Total time spent providing and/or coordinating discharge services: 48 minutes Time spent: Greater than 30 minutes Specific discharge activities: Diagnostic testing, chart review, developing a treatment plan, education, care coordination documentation, physical exam, result review Exam Narrative: General: Well-nourished, well-appearing 57-year-old female, sitting on side of bed, comfortable, NARD Neuro: awake, alert and oriented x4, speech clear, no focal neuro deficits noted HEENMT: normocephalic, atraumatic, EOMI, sclerae anicteric, moist oral mucosa Respiratory: clear to auscultation bila
[2022-11-21] MEDS: DICLOFENAC SOD 75 MG TABLET.EC PO (12:47)
[2022-11-21] MEDS: POTASSIUM CHLORIDE 20 MEQ TABLET 40 MEQ PO (12:47)
[2022-11-21] MEDS: estradioL 1 MG TABLET 2 MG PO (12:47)
[2022-11-21 14:00] VITALS: BP 120/72; PULSE 71; RESP 20; TEMP 36.3; O2SAT 98
== END 2022-11-21 15:54 | disposition home or self-care (01) | DRG 389 ==
LOC: ANHED 17:08 → ANH3MEDSUR 20:44
PROVIDERS: Emergency Medicine; Physician Assistant; Surgery; Admitting Provider Internal Medicine; Emergency Provider Physician Assistant; PCP Family Medicine Adolescent Medicine; Visit Provider Nurse Practitioner
DX: K56.600 Partial intestinal obstruction, unspecified as to cause (principal); N17.9 Acute kidney failure, unspecified; K56.7 Ileus, unspecified; K52.9 Noninfective gastroenteritis and colitis, unspecified; G47.33 Obstructive sleep apnea (adult) (pediatric); J45.909 Unspecified asthma, uncomplicated; Z96.641 Presence of right artificial hip joint; E66.9 Obesity, unspecified; Z68.35 Body mass index [BMI] 35.0-35.9, adult; Z87.820 Personal history of traumatic brain injury; Z90.49 Acquired absence of other specified parts of digestive tract; Z90.710 Acquired absence of both cervix and uterus; Z87.891 Personal history of nicotine dependence
CPT/HCPCS: 36415; 74177; 74250; 76775; 80048; 80053; 81001; 83605; 83690; 85025; 85027; 87045; 87177; 87209; 87269; 87272; 87427; 89055; 96361; 96372; 96374; 96375; 96376; 99285; A9270; G0378; J0131; J1170; J1650; J2270; J2405; J7030; J7120; Q9967

== ENCOUNTER 2022-12-08 14:04 | Outpatient (CLI) | payer BC, SELFPAY ==
[2022-12-08 14:51] LABS: Anion Gap 6 mmol/L (8-16); Blood Urea Nitrogen 19 mg/dL (7-17); Calcium 8.8 mg/dL (8.4-10.2); Carbon Dioxide 30 mmol/L (22-30); Chloride 101 mmol/L (98-107); Estimated Glomerular Filt Rate > 60; Glucose 81 mg/dL (65-110); Potassium 4.4 mmol/L (3.4-5.0); Sodium 137 mmol/L (137-145)
== END 2022-12-08 14:05 | disposition home or self-care (01) ==
PROVIDERS: PCP Family Medicine Adolescent Medicine; Visit Provider Physician Assistant
DX: N17.9 Acute kidney failure, unspecified (principal)
CPT/HCPCS: 36415; 80048

== ENCOUNTER → 2022-12-22 08:06 | Outpatient (CLI) | payer BC, SELFPAY ==
--- NOTE | ~2022-12-22 | CT_ITS ---
EXAMINATION: CT abdomen pelvis w con DATE: 12/22/2022 08:41 INDICATION: Diarrhea. Abdomen pain. Recent ileus. TECHNIQUE: Computed tomography (CT) of the abdomen and pelvis was performed with 100 cc Omnipaque 350 intravenous contrast. The dose-length product was 1193.88 mGy-cm. Automated exposure control and ite rative reconstruction technique were employed. COMPARISON: CT dated 11/18/2022 FINDINGS: Lung bases are unremarkable. Heart size normal. No significant pleural or pericardial effus ion. No significant vascular abnormality. No lymphadenopathy. Fatty infiltration of the liver. Status post cholecystectomy. There are calcified granulomas of the l iver and spleen. The pancreas, adrenal glands and kidneys are unremarkable. There is a right total hi p arthroplasty. Interval resolution of ascites. Few scattered colonic diverticula without evidence fo r diverticulitis. Normal appendix. There is a right hip arthroplasty. There is a subtle lytic lesion of L1 vertebral body. IMPRESSION: 1. No acute abdominal abnormality. 2: Subtle lytic lesion of the L1 vertebral body which may represent focal demineralization, although myeloma and metastatic disease are not excluded. Correlate for history of malignancy. Reviewed, dictated and finalized at location L. IMPRESSION: 1. No acute abdominal abnormality. 2: Subtle lytic lesion of the L1 vertebral body which may represent focal hetal neralization, although myeloma and metastatic disease are not excluded. Correla te for history of malignancy.
== END ==
PROVIDERS: PCP Family Medicine Adolescent Medicine; Visit Provider Family Medicine Adolescent Medicine
DX: R19.7 Diarrhea, unspecified (principal); R10.9 Unspecified abdominal pain
CPT/HCPCS: 74177; Q9967

== ENCOUNTER 2023-02-15 01:07 | Day surgery (SDC) | payer BC, SELFPAY ==
[2023-02-04 11:55] VITALS: BMI 35.9
--- NOTE | 2023-02-14 19:08 | PM.HPGS ---
History of Present Illness History of Present Illness Consent: Risks, benefits, and alternatives have been discussed and questions answered. Patient agrees to proceed with procedure. Chief complaint: diarrhea Narrative: Albreto West is a 57 year old female who ?was recently hospitalized for partial small bowel obstruction which did resolve with conservative measures.? She has issues with her bowels in that she has alternating diarrhea and constipation, but mostly has loose stools.? She will have an urgent bowel movement almost immediately after eating when her bowels are acting up.? She has had no blood her stools.? She also has had pain in the left lower quadrant intermittently.? She was given a prescription for dicyclomine to take 4 times a day when she was released from the hospital.? She has been taking it ?as needed? and last used about 1 week ago.? She does find however that works and does relieve her pain within a matter of 1/2 hour or less.? Her last colonoscopy for screening was nearly 10 years ago and was done in [place]. Review of Systems Review of Systems: All systems reviewed & are unremarkable except as noted in HPI and below PMFSH Past Medical History Medical History Asthma History of traumatic brain injury short term memory loss JUAN (obstructive sleep apnea) no longer needs cpap Surgical History Surgical History History of laparoscopic cholecystectomy 2007 History of laparoscopy History of ovarian cystectomy History of partial hysterectomy History of total abdominal hysterectomy History of total right hip arthroplasty Family History Family History Mother Family history of arthritis Grandparent Family history of malignant neoplasm Sibling Diabetes mellitus Hx of heart surgery Social History Social History Smoking packs per day: 1 Smoking cigarettes per day: 20.0 Years smoked: 40 Smoking pack-years: 40.00 Smoking status: Former smoker Tobacco type: cigarettes Smoking end date: 11/18/17 Alcohol intake: never Drinks per week: 1 Alcohol use details: 3-4/YEAR Substance use: never Substance use type: does not use Lack of Transportation: No Lack of Food: Never True Current Housing: I Have Housing Concerned About Future Housing: No Difficulty Paying Gas/Electric Bills: No Difficulty Paying for Meds: No Currently Unemployed: No Education: Master's Degree or Higher Difficulty w/ Childcare or Family Care: No Living arrangements: with family Additional living arrangements comments: SON Spiritual care concerns: No Meds Home Medications and Allergies Home Medications Medication Instructions Recorded Confirmed Type acai cook extract 500 mg capsule 500 mg PO DAILY 09/23/22 02/04/23 History acetaminophen 500 mg tablet 1,000 mg PO Q6H PRN Headache 09/23/22 02/04/23 History diclofenac sodium 75 mg 75 mg PO BID 09/23/22 02/04/23 History tablet,delayed release estradiol 2 mg tablet 2 mg PO DAILY 09/23/22 02/04/23 History semaglutide (weight loss) 2.4 2.4 mg subcut WEEKLY 09/23/22 02/04/23 History mg/0.75 mL subcutaneous pen injector (James) dicyclomine 10 mg capsule 20 mg PO QID PRN Abdominal 11/21/22 02/04/23 Rx Cramping #30 caps cholestyramine (with sugar) 4 gram 4 g PO DAILY #30 ea 01/05/23 02/04/23 Rx powder for susp in a packet pantoprazole 40 mg tablet,delayed See Rx Instructions .Route 01/27/23 02/04/23 Rx release .COMPLEX #30 tabs Allergies Allergy/AdvReac Type Severity Reaction Status Date / Time meperidine Allergy Unknown Rash Verified 02/15/23 07:53 Exam Const: General: alert Orientation/consciousness: patient oriented x3 Resp: Auscultation: clear to auscultation bilaterally Cardio: Rhyth
[2023-02-15 07:55] VITALS: BP 130/79; PULSE 72; RESP 18; TEMP 36.1; O2SAT 100
[2023-02-15] MEDS: LACTATED RINGERS 1,000 ML 150 ML IV CONT (08:21)
--- NOTE | 2023-02-15 08:21 | WPDANESEPPF ---
Anes - Initial Pre Proc Eval Procedure: Operation Date: 02/15/23 09:00 Proposed Procedures p Colonoscopy - Torsten Sánchez MD Date/Time: 02/15/23 08:21 Surgeon: Torsten Sánchez MD Pre Op Diagnosis: diarrhea Patient Data Age: 57 Gender: F Height: 1.7 m Weight: 102.4 kg Last Vital Signs Temp 36.1 C L 02/15/23 07:55 Pulse 72 02/15/23 07:55 Resp 18 02/15/23 07:55 BP 130/79 02/15/23 07:55 Pulse Ox 100 02/15/23 07:55 O2 Del Method Room Air 02/15/23 07:55 Allergies Allergy/AdvReac Type Severity Reaction Status Date / Time meperidine Allergy Unknown Rash Verified 02/15/23 07:53 Home Medications Medication Instructions Recorded Confirmed Type acai cook extract 500 mg capsule 500 mg PO DAILY 09/23/22 02/04/23 History acetaminophen 500 mg tablet 1,000 mg PO Q6H PRN Headache 09/23/22 02/04/23 History diclofenac sodium 75 mg 75 mg PO BID 09/23/22 02/04/23 History tablet,delayed release estradiol 2 mg tablet 2 mg PO DAILY 09/23/22 02/04/23 History semaglutide (weight loss) 2.4 2.4 mg subcut WEEKLY 09/23/22 02/04/23 History mg/0.75 mL subcutaneous pen injector (Wegovy) dicyclomine 10 mg capsule 20 mg PO QID PRN Abdominal 11/21/22 02/04/23 Rx Cramping #30 caps cholestyramine (with sugar) 4 gram 4 g PO DAILY #30 ea 01/05/23 02/04/23 Rx powder for susp in a packet pantoprazole 40 mg tablet,delayed See Rx Instructions .Route 01/27/23 02/04/23 Rx release .COMPLEX #30 tabs Patient hx anesthesia problems: none Family hx anesthesia problems: none Results Review: All pre-operative results and documents have been reviewed as part of the pre-operative evaluation. [facility] Past Medical History Medical History Asthma History of traumatic brain injury short term memory loss JUAN (obstructive sleep apnea) no longer needs cpap Surgical History Surgical History History of laparoscopic cholecystectomy 2007 History of laparoscopy History of ovarian cystectomy History of partial hysterectomy History of total abdominal hysterectomy History of total right hip arthroplasty Family History Family History Mother Family history of arthritis Grandparent Family history of malignant neoplasm Sibling Diabetes mellitus Hx of heart surgery Social History Social History Smoking packs per day: 1 Smoking cigarettes per day: 20.0 Years smoked: 40 Smoking pack-years: 40.00 Smoking status: Former smoker Tobacco type: cigarettes Smoking end date: 11/18/17 Alcohol intake: never Drinks per week: 1 Alcohol use details: 3-4/YEAR Substance use: never Substance use type: does not use Lack of Transportation: No Lack of Food: Never True Current Housing: I Have Housing Concerned About Future Housing: No Difficulty Paying Gas/Electric Bills: No Difficulty Paying for Meds: No Currently Unemployed: No Education: Master's Degree or Higher Difficulty w/ Childcare or Family Care: No Living arrangements: with family Additional living arrangements comments: SON Spiritual care concerns: No Anes - Eval Final PreProcedure Day of Procedure 02/15/23 08:21 Patient weight: obese Heart: regular rate and rhythm Lungs: clear to auscultation Airway: Mallampati scale class II Neurological: alert and oriented Last oral intake: >/= 8 hours ASA classification: III Emergent: no Anesthetic plan: proceed Anesthesia type and monitoring: general GIVS and standard monitoring Results Review: All pre-operative results and documents have been reviewed as part of the pre-operative evaluation. Informed Consent: The patient's anesthetic plan and its attendant risks and benefits were discussed with the patient/family/POA. Questions were solicited
[2023-02-15 09:18] VITALS: BP 114/72; PULSE 65; RESP 15; O2SAT 96
[2023-02-15 09:28] VITALS: BP 113/72; PULSE 63; RESP 13; O2SAT 97
[2023-02-15 09:38] VITALS: BP 118/79; PULSE 63; RESP 14; O2SAT 95
== END 2023-02-15 09:58 | disposition home or self-care (01) ==
PROVIDERS: PCP Family Medicine Adolescent Medicine; Visit Provider Internal Medicine Gastroenterology
PROC: 0DJD8ZZ Inspection of Lower Intestinal Tract, Via Natural or Artificial Opening Endoscopic (ICD-10-PCS; CPT 45378; principal; 2023-02-15 09:00)
DX: Z12.11 Encounter for screening for malignant neoplasm of colon (principal); G47.33 Obstructive sleep apnea (adult) (pediatric); Z87.820 Personal history of traumatic brain injury; Z87.891 Personal history of nicotine dependence; E66.9 Obesity, unspecified; Z68.35 Body mass index [BMI] 35.0-35.9, adult
CPT/HCPCS: 45378; J2704; J7120

== ENCOUNTER 2023-08-11 09:30 | Emergency (ER) | payer BC, SELFPAY ==
--- NOTE | ~2023-08-11 | XR_ITS ---
EXAMINATION: XR chest 2V 08/11/2023 10:54 INDICATION: Chest pain PROCEDURE: 2 view chest COMPARISON: Comparison to multiple prior studies sequentially, with oldest reviewed study dated 04/22. FINDINGS: The lungs are clear. The cardiomediastinal silhouette is within normal limits. There are no pleural effusions. There is no pneumothorax suspected. IMPRESSION: 1: NO ACUTE CARDIOPULMONARY DISEASE. Reviewed, dictated and finalized at location B. GO DEVELOPER
--- NOTE | ~2023-08-11 | CT_ITS ---
EXAMINATION: CTA brain carotid DATE: 08/11/2023 12:00 INDICATION: Posterior neck pain. Headache. TECHNIQUE: Computed tomographic angiography (CTA) of the head was performed without and with 100 mL O mnipaque-350 intravenous contrast. CTA of the neck was performed with intravenous contrast. Automated exposure control and iterative reconstruction technique were employed. The dose-length product was 1 766.60 mGy-cm. Maximum intensity projection and volume rendered 3D-reconstructions were created by spencer venegas technologist on a separate workstation. COMPARISON: Head CT 11/27/2018 FINDINGS: HEAD CTA: There is no intracranial hemorrhage, acute infarction, or abnormal intracranial mass lesion . The ventricles are normal in size. The orbits are normal. Right maxillary sinus is small with thick ened and sclerotic luna. There is mild mucosal thickening in right maxillary sinus. The mastoid air cells are normal. Left vertebral artery is dominant. There is no significant stenosis of basilar solitario ry or the posterior cerebral arteries. The posterior communicating arteries are normal. There is no s ignificant stenosis of the intracranial internal carotid arteries or anterior or middle cerebral solitario dhaval. Anterior communicating artery is normal. There is no aneurysm. NECK CTA: There are no pathologically enlarged lymph nodes. Left vertebral artery is dominant. There is mild plaque in the proximal internal carotid arteries. There is 0% stenosis of the proximal right internal carotid artery relative to normal distal artery lumen diameter (NASCET criteria). There is 0 % stenosis of the proximal left internal carotid artery relative to normal distal artery lumen diamet er. There is severe cervical spondylosis. IMPRESSION: 1. Normal brain. No aneurysm or significant intracranial arterial stenosis. 2. 0% stenosis of the proximal internal carotid arteries relative to normal distal artery lumen diame ters (NASCET criteria). Reviewed, dictated and finalized at location A. IOLOGY CONSULTANT IMPRESSION: 1. Normal brain. No aneurysm or significant intracranial arterial stenosis. 2. 0% stenosis of the proximal internal carotid arteries relative to normal dis zen artery lumen diameters (NASCET criteria).
--- NOTE | 2023-08-11 09:34 | ECG_ITS ---
Measurements Intervals [place] Rate: 82 P: 9 [place]: 152 QRS: -34 QRSD: 87 T: 32 QT: 339 QTc: 397 Interpretive Statements SINUS RHYTHM LEFT AXIS DEVIATION INCOMPLETE RIGHT BUNDLE BRANCH BLOCK LOW QRS VOLTAGE IN PRECORDIAL LEADS CONSIDER ANTERIOR INFARCT, AGE INDETERMINATE ABNORMAL ECG NO PREVIOUS ECG AVAILABLE FOR COMPARISON Electronically Signed On 08-11-2023 9:55:21 AUTO SELF SERVICE STATION ATTENDANT by Mango Campa D.O.
[2023-08-11 09:41] VITALS: BP 134/83; PULSE 88; RESP 16; TEMP 36.1; O2SAT 99
--- NOTE | 2023-08-11 11:07 | ED.CHESTPAIN ---
HPI - Chest Pain General Chief Complaint: Chest Pain Stated Complaint: left neck pain Time Seen by Provider: 08/11/23 10:40 History of Present Illness HPI narrative: 58-year-old female presenting to the emergency department for evaluation of multiple complaints. Patient states that she was at work when she had onset of posterior scalp and neck pain that radiated around laterally to the right side then radiated down into her neck. Patient denies any associated numbness or weakness but states she does have a mild headache and does have some difficulty swallowing. Patient reports she is also having some mild chest pain as well. Patient denies any prior history of Neurosurgery but does have a history of a significant concussion. Patient denies any previous cardiac history. Related Data Home Medications Medication Instructions Recorded Confirmed acai cook extract 500 mg capsule 500 mg PO DAILY 09/23/22 02/04/23 acetaminophen 500 mg tablet 1,000 mg PO Q6H PRN Headache 09/23/22 02/04/23 diclofenac sodium 75 mg 75 mg PO BID 09/23/22 02/04/23 tablet,delayed release estradiol 2 mg tablet 2 mg PO DAILY 09/23/22 02/04/23 semaglutide (weight loss) 2.4 2.4 mg subcut WEEKLY 09/23/22 02/04/23 mg/0.75 mL subcutaneous pen injector (Wegovy) Allergies Allergy/AdvReac Type Severity Reaction Status Date / Time meperidine Allergy Unknown Rash Verified 02/15/23 07:53 Review of Systems Review of Systems: All systems reviewed & are unremarkable except as noted in HPI and below PMFSH Past Medical History Medical History Asthma History of traumatic brain injury short term memory loss JUAN (obstructive sleep apnea) no longer needs cpap Surgical History Surgical History History of laparoscopic cholecystectomy 2007 History of laparoscopy History of ovarian cystectomy History of partial hysterectomy History of total abdominal hysterectomy History of total right hip arthroplasty Family History Family History Mother Family history of arthritis Grandparent Family history of malignant neoplasm Sibling Diabetes mellitus Hx of heart surgery Social History Social History Smoking packs per day: 1 Smoking cigarettes per day: 20.0 Years smoked: 40 Smoking pack-years: 40.00 Smoking status: Former smoker Tobacco type: cigarettes Smoking end date: 11/18/17 Alcohol intake: never Drinks per week: 1 Alcohol use details: 3-4/YEAR Substance use: never Substance use type: does not use Lack of Transportation: No Lack of Food: Never True Current Housing: I Have Housing Concerned About Future Housing: No Difficulty Paying Gas/Electric Bills: No Difficulty Paying for Meds: No Currently Unemployed: No Education: Master's Degree or Higher Difficulty w/ Childcare or Family Care: No Living arrangements: with family Additional living arrangements comments: SON Spiritual care concerns: No Exam Narrative: APPEARANCE: Well appearing, no pain, no distress, well-nourished. HEAD: normocephalic, atraumatic. EYES: PERRLA/EOMI, conjunctivae clear. NOSE: Normal no drainage EARS:TMS clear with good light reflex. THROAT: Pharynx clear, no exudate. NECK: Supple. No adenopathy, no masses. RESPIRATORY: Airway patent, respirations nonlabored. Clear to auscultation bilaterally, no rales, rhonchi, wheezing. CARDIOVASCULAR: Regular rate and rhythm without murmurs rubs or gallops. ABDOMINAL: Soft, nontender, nondistended, normal bowel sounds MUSCULOSKELETAL: Moves all extremities. Strength/ROM intact, No edema, No calf tenderness. NEURO: Alert. Cranial nerves II through XII intact. Grossly intact SKIN: Warm, dry. Normal Color Course Course Emergency Course: 58-year-old femal
[2023-08-11 11:22] LABS: Basophils Absolute Auto 0.1 K/mm3 (0.0-0.1); Basophils Percent Auto 0.9 % (0.2-1.2); Hematocrit 38.9 % (37.0-47.0); Hemoglobin 12.5 g/dL (12.0-15.0); Immature Granulocyte Absolute 0.03 K/mm3 (0.00-0.031); Immature Granulocyte Percent A 0.3 % (0-0.5); Lymphocytes Absolute Auto 4.04 K/mm3 (0.9-3.2); Lymphocytes Percent Auto 39.7 % (18.3-44.2); Mean Corpuscular HGB Conc 32.1 g/dl (32-36); Mean Corpuscular Hemoglobin 28.9 pg (26-34); Mean Corpuscular Volume 89.8 fl (80-100); Mean Platelet Volume 9.5 fl (7.4-10.4); Monocytes Absolute Auto 0.7 K/mm3 (0.1-0.6); Monocytes Percent Auto 7.2 % (2.6-8.5); Neutrophils Absolute Auto 5.3 K/mm3 (1.3-6.7); Neutrophils Percent Auto 51.9 % (45.5-73.1); Platelet Count Result 312 k/mm3 (150-375); Red Blood Count 4.33 M/mm3 (4.2-5.4); Red Cell Distribution Width 13.7 % (11.5-14.5); White Blood Count 10.2 K/mm3 (4.5-10.0)
[2023-08-11 11:29] LABS: Alanine Aminotransferase 22 U/L (6-35); Albumin Level 4.2 g/dL (3.5-5.1); Alkaline Phosphatase 90 U/L (38-126); Anion Gap 9 mmol/L (8-16); Aspartate Amino Transferase 24 U/L (14-36); Bilirubin,Total 0.4 mg/dL (0.2-1.3); Blood Urea Nitrogen 20 mg/dL (7-17); Calcium 9.3 mg/dL (8.4-10.2); Carbon Dioxide 25 mmol/L (22-30); Chloride 104 mmol/L (98-107); Estimated CRCL calculation 84 ml/min; Estimated Glomerular Filt Rate > 60; Glucose 95 mg/dL (65-110); Lipase 100 U/L (23-300); Potassium 4.5 mmol/L (3.4-5.0); Sodium 138 mmol/L (137-145)
[2023-08-11 11:32] LABS: Partial Thromboplastin Time 24.4 SECONDS (22.3-36.8); Prothrombin Time 13.1 Seconds (11.1-14.7)
[2023-08-11 11:39] LABS: Troponin I < 0.012 ng/mL (0.000-0.034)
[2023-08-11 12:00] VITALS: BP 124/77; PULSE 75; RESP 18; O2SAT 96
[2023-08-11 12:30] VITALS: BP 124/75; PULSE 74; RESP 15; O2SAT 96
[2023-08-11 12:45] VITALS: BP 125/65; PULSE 78; RESP 15; O2SAT 98
[2023-08-11 14:36] LABS: Troponin I < 0.012 ng/mL (0.000-0.034)
[2023-08-11 16:00] VITALS: BP 128/84; PULSE 88; RESP 18; O2SAT 96
[2023-08-11 16:14] VITALS: BP 135/83; PULSE 72; RESP 12; O2SAT 100
== END 2023-08-11 16:17 | disposition home or self-care (01) ==
PROVIDERS: Emergency Provider Emergency Medicine; PCP Family Medicine Adolescent Medicine
DX: R51.9 Headache, unspecified (principal); R07.9 Chest pain, unspecified; J45.909 Unspecified asthma, uncomplicated; Z87.891 Personal history of nicotine dependence
CPT/HCPCS: 36415; 70496; 70498; 71046; 80053; 83690; 84484; 85025; 85610; 85730; 93005; 99284; Q9967

== ENCOUNTER 2023-09-09 20:20 | Emergency (ER) | payer BC, SELFPAY ==
[2023-09-09 20:23] VITALS: BP 150/70; PULSE 118; RESP 22; TEMP 37.8; O2SAT 98
--- NOTE | 2023-09-09 22:07 | PC.NURSE ---
Patient states [facility] is not busy so they are going there
== END 2023-09-09 22:07 | disposition left against medical advice (07) ==
PROVIDERS: PCP Family Medicine Adolescent Medicine
DX: R50.9 Fever, unspecified (principal)
CPT/HCPCS: 99199

== ENCOUNTER 2023-09-15 15:11 | Outpatient (CLI) | payer BC, SELFPAY ==
--- NOTE | ~2023-09-15 | MM_ITS ---
EXAMINATION: MM screening [facility] BI w laurie HISTORY: Screening mammogram TECHNIQUE: Craniocaudal and mediolateral oblique 3-D tomosynthesis images were obtained and synthetic 2-D images were generated. CAD analysis was submitted and interpreted. COMPARISON: 09/29/2022, 09/03/2022, 07/20/2017 BREAST PARENCHYMAL COMPOSITION: There are scattered areas of fibroglandular density. FINDINGS: No suspicious mass, calcification, or architectural distortion are identified in either brenna ast to suggest malignancy. There has been no suspicious interval change. IMPRESSION: 1. No mammographic evidence of malignancy. 2. Recommend routine screening mammography in one year. BI-RADS Category 1: Negative Reviewed, dictated and finalized at location A. EMIC ADVISOR
== END 2023-09-15 15:12 | disposition home or self-care (01) ==
LOC: ANHIMG 15:14
PROVIDERS: PCP Family Medicine Adolescent Medicine; Visit Provider Obstetrics & Gynecology
DX: Z12.31 Encounter for screening mammogram for malignant neoplasm of breast (principal)
CPT/HCPCS: 77063; 77067

== ENCOUNTER 2024-04-08 17:02 | Emergency (ER) | payer BC, SELFPAY ==
[2024-04-08 17:13] VITALS: BP 123/72; PULSE 78; RESP 16; TEMP 36.7; O2SAT 99
--- NOTE | 2024-04-08 17:27 | ED.EAR ---
HPI - Ear Problem General Chief complaint: Ear Stated complaint: ear drim issue right ear Time Seen by Provider: 04/08/24 17:20 Source: patient and RN notes reviewed Mode of arrival: ambulatory Limitations: no limitations History of Present Illness HPI Narrative: Patient presents today complaining of possible rupture of her right ear drum. States she was cleaning her ear with a Q-tip last night and felt a pop and immediate blood from her ear that has persisted through the day today. She is unsure if there is decreased hearing from her ear or not. Denies pain. States she uses Q-tips 3-4 times per day in her ear canal to itch them. Related Data Home Medications Medication Instructions Recorded Confirmed acai cook extract 500 mg capsule 500 mg PO DAILY 09/23/22 04/08/24 acetaminophen 500 mg tablet 1,000 mg PO Q6H PRN Headache 09/23/22 04/08/24 diclofenac sodium 75 mg 75 mg PO BID 09/23/22 04/08/24 tablet,delayed release estradiol 2 mg tablet 2 mg PO DAILY 09/23/22 04/08/24 semaglutide (weight loss) 2.4 2.4 mg subcut WEEKLY 09/23/22 04/08/24 mg/0.75 mL subcutaneous pen injector (Wegovy) Allergies Allergy/AdvReac Type Severity Reaction Status Date / Time meperidine Allergy Unknown Rash Verified 04/08/24 17:08 Review of Systems Review of Systems: CONSTITUTIONAL: Denies body aches, fever, chills, or sweats. EYES: Denies visual changes, redness, or discharge. ENT: Denies rhinorrhea, congestion, sore throat. + bleeding from right ear canal CARDIOVASCULAR: Denies chest pain, palpitations, or edema. RESPIRATORY: Denies cough or dyspnea. GASTROINTESTINAL: Denies abdominal pain, nausea, vomiting, or diarrhea. GENITOURINARY: Denies dysuria or hematuria. SKIN: Denies rash, itching, or wounds. MUSCULOSKELETAL: Denies back pain, joint pain, or myalgia. NEUROLOGIC: Denies headache, numbness, tingling, or weakness. PSYCH: Denies depression or anxiety. [facility] Past Medical History Medical History Asthma History of traumatic brain injury short term memory loss JUAN (obstructive sleep apnea) no longer needs cpap Surgical History Surgical History History of section x3 History of laparoscopic cholecystectomy (2005) History of laparoscopy (2012) lysis of adhesions with left salpingectomy History of ovarian cystectomy (2007) History of partial hysterectomy (2010) History of total abdominal hysterectomy History of total right hip arthroplasty (2016) History of urinary tract surgery (2007) Urethral sling procedure Family History Family History Mother Family history of arthritis Grandparent Family history of malignant neoplasm Sibling Diabetes mellitus Hx of heart surgery Social History Social History Smoking packs per day: 1 Smoking cigarettes per day: 20.0 Years smoked: 40 Smoking pack-years: 40.00 Smoking status: Former smoker Tobacco type: cigarettes Smoking end date: 11/18/17 Alcohol intake: never Drinks per week: 1 Alcohol use details: 3-4/YEAR Substance use: never Substance use type: does not use Lack of Transportation: No Lack of Food: Never True Current Housing: I Have Housing Concerned About Future Housing: No Difficulty Paying Gas/Electric Bills: No Difficulty Paying for Meds: No Currently Unemployed: No Education: Master's Degree or Higher Difficulty w/ Childcare or Family Care: No Living arrangements: with family Additional living arrangements comments: SON Spiritual care concerns: No Comments At time of signature, I have reviewed and agree with nursing past medical, surgical, social and family history unless otherwise noted. Please see nursing chart for further information. There is no re
== END 2024-04-08 17:32 | disposition home or self-care (01) ==
PROVIDERS: Emergency Provider Nurse Practitioner; PCP Family Medicine Adolescent Medicine
DX: S00.411A Abrasion of right ear, initial encounter (principal); X58.XXXA Exposure to other specified factors, initial encounter; Z87.891 Personal history of nicotine dependence; J45.909 Unspecified asthma, uncomplicated; Z87.820 Personal history of traumatic brain injury; Z96.641 Presence of right artificial hip joint
CPT/HCPCS: 99211; G0463

== ENCOUNTER 2024-04-24 11:02 | Emergency (ER) | payer BC, SELFPAY ==
--- NOTE | ~2024-04-24 | XR_ITS ---
EXAMINATION: XR wrist LT min 3V DATE: 04/24/2024 11:31 INDICATION: Left wrist pain. Injury. TECHNIQUE: 4 views of left wrist were obtained. COMPARISON: None. FINDINGS: Bone alignment is normal. No fracture. There is mild osteoarthritis of first carpometacarpa l joint and triscaphe joint. There is mild osteoarthrosis of fourth and fifth metacarpophalangeal kevyn nts. There is a loose body in triscaphe joint. IMPRESSION: 1. Mild polyarticular osteoarthritis. 2. Loose body in triscaphe joint. Reviewed, dictated and finalized at location A.
[2024-04-24 11:08] VITALS: BP 142/90; PULSE 81; RESP 20; TEMP 36.6; O2SAT 98
--- NOTE | 2024-04-24 11:26 | ED.UPPEXIN ---
HPI - Extremity Injury (Upper) General Chief Complaint: Extremity Injury, Lower Stated Complaint: left wrist pain Time Seen by Provider: 04/24/24 11:07 History of Present Illness HPI narrative: Pt tripped and fell and landed on outstretched left hand bout 3 weeks ago. Pt says the wrist continues to hurt with movement and she decided she should get an x ray. Related Data Home Medications Medication Instructions Recorded Confirmed acai cook extract 500 mg capsule 500 mg PO DAILY 09/23/22 04/08/24 acetaminophen 500 mg tablet 1,000 mg PO Q6H PRN Headache 09/23/22 04/08/24 diclofenac sodium 75 mg 75 mg PO BID 09/23/22 04/08/24 tablet,delayed release estradiol 2 mg tablet 2 mg PO DAILY 09/23/22 04/08/24 semaglutide (weight loss) 2.4 2.4 mg subcut WEEKLY 09/23/22 04/08/24 mg/0.75 mL subcutaneous pen injector (Wegovy) Allergies Allergy/AdvReac Type Severity Reaction Status Date / Time meperidine Allergy Unknown Rash Verified 04/24/24 11:13 Review of Systems Review of Systems: All systems reviewed & are unremarkable except as noted in HPI and below PMFSH Past Medical History Medical History Asthma History of traumatic brain injury short term memory loss JUAN (obstructive sleep apnea) no longer needs cpap Surgical History Surgical History History of section x3 History of laparoscopic cholecystectomy (2005) History of laparoscopy (2012) lysis of adhesions with left salpingectomy History of ovarian cystectomy (2007) History of partial hysterectomy (2010) History of total abdominal hysterectomy History of total right hip arthroplasty (2016) History of urinary tract surgery (2007) Urethral sling procedure Family History Family History Mother Family history of arthritis Grandparent Family history of malignant neoplasm Sibling Diabetes mellitus Hx of heart surgery Social History Social History Smoking packs per day: 1 Smoking cigarettes per day: 20.0 Years smoked: 40 Smoking pack-years: 40.00 Smoking status: Former smoker Tobacco type: cigarettes Smoking end date: 11/18/17 Alcohol intake: never Drinks per week: 1 Alcohol use details: 3-4/YEAR Substance use: never Substance use type: does not use Lack of Transportation: No Lack of Food: Never True Current Housing: I Have Housing Concerned About Future Housing: No Difficulty Paying Gas/Electric Bills: No Difficulty Paying for Meds: No Currently Unemployed: No Education: Master's Degree or Higher Difficulty w/ Childcare or Family Care: No Living arrangements: with family Additional living arrangements comments: SON Spiritual care concerns: No Exam Const: General: healthy appearing and no acute distress Nutritional Appearance: well nourished Orientation/consciousness: patient oriented x3 Limitations: no limitations Skin: General skin exam: normal color Rashes: no rashes Wounds: no wounds Neuro: General: patient oriented x3, moves all extremities and no focal motor deficits Speech: normal speech Extrem: General: normal to inspection and no clubbing, cyanosis or edema Other: tender over flexor tendon left wrist. Psych: Mental Status: mental status grossly normal Affect: normal affect Attitude: cooperative Course Vital Signs Vital signs: Vital Signs Temperature 97.9 F 04/24/24 11:08 Pulse Rate 81 04/24/24 11:08 Respiratory Rate 20 04/24/24 11:08 Blood Pressure 142/90 H 04/24/24 11:08 Pulse Oximetry 98 04/24/24 11:08 Oxygen Delivery Room Air 04/24/24 11:08 Temperature 97.9 F 04/24/24 11:08 Pulse Rate 81 04/24/24 11:08 Respiratory Rate 20 04/24/24 11:08 Blood Pressure 142/90 H 04/24/24 11:08
== END 2024-04-24 12:57 | disposition home or self-care (01) ==
PROVIDERS: Emergency Provider Emergency Medicine; PCP Family Medicine Adolescent Medicine
DX: M77.8 Other enthesopathies, not elsewhere classified (principal); J45.909 Unspecified asthma, uncomplicated; G47.33 Obstructive sleep apnea (adult) (pediatric); Z87.820 Personal history of traumatic brain injury; Z87.891 Personal history of nicotine dependence; Z90.49 Acquired absence of other specified parts of digestive tract; Z90.710 Acquired absence of both cervix and uterus; Z79.85 Long-term (current) use of injectable non-insulin antidiabetic drugs; M19.032 Primary osteoarthritis, left wrist; W01.0XXA Fall on same level from slipping, tripping and stumbling without subsequent striking against object, initial encounter
CPT/HCPCS: 73110; 99283

== ENCOUNTER 2024-05-20 17:43 | Emergency (ER) | payer BC, SELFPAY ==
[2024-05-20 18:05] VITALS: BP 127/76; PULSE 82; RESP 16; TEMP 36.3; O2SAT 100
--- NOTE | 2024-05-20 18:30 | ED.UPPEXIN ---
HPI - Extremity Injury (Upper) General Chief Complaint: Extremity Injury, Upper Stated Complaint: left wrist issue Time Seen by Provider: 05/20/24 18:30 Source: patient Mode of arrival: ambulatory Limitations: no limitations History of Present Illness HPI narrative: 59-year-old female presents with complaint of pain to left wrist radiating up into left forearm. Patient states around 9:00 a.m. she reached down to grab her purse and felt a pop to her left wrist. Since then has had decreased range of motion. Also reports spasming of left forearm, like a muscle spasm . Took Tylenol at 90 your and nothing since. On arrival patient is fingers were swollen and rings on fingers appeared tight. Had patient removed them. Patient wearing a wrist splint that she has used in the past for tendonitis. Has seen a hand specialist in the past for her tendinitis. Recently had steroid shot to left wrist for treatment of tendinitis. all systems reviewed and negative except as noted above. Related Data Home Medications Medication Instructions Recorded Confirmed acai cook extract 500 mg capsule 500 mg PO DAILY 09/23/22 04/08/24 acetaminophen 500 mg tablet 1,000 mg PO Q6H PRN Headache 09/23/22 04/08/24 diclofenac sodium 75 mg 75 mg PO BID 09/23/22 04/08/24 tablet,delayed release estradiol 2 mg tablet 2 mg PO DAILY 09/23/22 04/08/24 semaglutide (weight loss) 2.4 2.4 mg subcut WEEKLY 09/23/22 04/08/24 mg/0.75 mL subcutaneous pen injector (Wegovy) Allergies Allergy/AdvReac Type Severity Reaction Status Date / Time meperidine Allergy Unknown Rash Verified 05/08/24 08:14 Review of Systems Review of Systems: CONSTITUTIONAL: Denies fever, chills, or sweats. EYES: Denies visual changes, redness, or discharge. ENT: Denies rhinorrhea, congestion, sore throat, or otalgia. CARDIOVASCULAR: Denies chest pain, palpitations, or edema. RESPIRATORY: Denies cough or dyspnea. GASTROINTESTINAL: Denies abdominal pain, nausea, vomiting, or diarrhea. GENITOURINARY: Denies dysuria or hematuria. SKIN: Denies rash or itching. MUSCULOSKELETAL: Denies back pain, joint pain, or myalgia. Reports pain and swelling to left wrist and forearm. NEUROLOGIC: Denies headache, numbness, or weakness. PSYCHIATRIC: Denies anxiety or depression. All other systems reviewed are negative, except as documented in HPI. [facility] Past Medical History Medical History Asthma History of traumatic brain injury short term memory loss JUAN (obstructive sleep apnea) no longer needs cpap Surgical History Surgical History History of section x3 History of laparoscopic cholecystectomy (2005) History of laparoscopy (2012) lysis of adhesions with left salpingectomy History of ovarian cystectomy (2007) History of partial hysterectomy (2010) History of total abdominal hysterectomy History of total right hip arthroplasty (2016) History of urinary tract surgery (2007) Urethral sling procedure Family History Family History (Updated 05/08/24 @ 08:32 by GLENROY Alfaro) Mother Family history of arthritis Grandparent Family history of malignant neoplasm Sibling Diabetes mellitus Hx of heart surgery Father , cancer No problems noted. Social History Social History (Updated 05/08/24 @ 08:34 by GLENROY Alfaro) Smoking packs per day: 1 Smoking cigarettes per day: 20.0 Years smoked: 40 Smoking pack-years: 40.00 Smoking status: Former smoker Tobacco type: cigarettes Second hand tobacco smoke exposure: Yes Smoking end date: 11/18/17 Alcohol intake: current Drinks per week: 1 Alcohol use details: 3-4/YEAR Substance use: never Substance use type: does not use Do You Feel Safe in your Home?: Yes Lack of Transportation: No Lack of Food: Never True Current Housing: I Have Housing Concerned Ab
== END 2024-05-20 18:56 | disposition home or self-care (01) ==
PROVIDERS: Emergency Provider Nurse Practitioner Family; PCP Family Medicine Adolescent Medicine
DX: S59.912A Unspecified injury of left forearm, initial encounter (principal); X58.XXXA Exposure to other specified factors, initial encounter; J45.909 Unspecified asthma, uncomplicated; Z87.820 Personal history of traumatic brain injury
CPT/HCPCS: 99213; G0463

== ENCOUNTER 2024-06-09 07:29 | Outpatient (CLI) | payer BC, SELFPAY ==
--- NOTE | ~2024-06-09 | MR_ITS ---
EXAMINATION: MR wrist LT wo/w con, MR hand LT wo/w con DATE: 06/09/2024 09:29 INDICATION: Left wrist pain TECHNIQUE: 1. Magnetic resonance imaging (MRI) of the left wrist was performed without and with 15 mL Multihance intravenous contrast. Sequences included axial, sagittal and coronal T1-weighted FSE and fluid sensi tive FSE STIR, sagittal PD-weighted FSE, axial T1-weighted FS FSE and post contrast axial, sagittal a nd coronal T1-weighted FS FSE were also obtained. 2. MRI of the left hand was performed without and with 15 mL Multihance intravenous contrast utilizin g the identical contrast bolus. Sequences included axial, sagittal and coronal T1-weighted FSE and fl uid sensitive FSE STIR, axial T1-weighted FS FSE and post contrast axial and sagittal T1-weighted FS FSE were also obtained. FINDINGS: Intrinsic ligaments: The scapholunate and lunotriquetral ligaments are normal. Triangular fibrocartilage complex (TFCC): The the radial, foveal and styloid attachments of the triangular fibrocartilage complex as well as th e dorsal and volar radioulnar ligaments are normal. And mild increased signal of less than fluid inte nsity at the central fibrocartilaginous disc of the triangular fibrocartilage complex consistent with partial tear. The ulnar collateral ligament, ulnotriquetral ligament and meniscal homologue are norm al. The extensor carpi ulnaris tendon sheath is normal. Extensor wrist: Extensor tendons of the wrist are normal. Very small amount of fluid in the tendon sheath of the exte nsor carpi radialis longus and brevis tendons consistent with minimal tenosynovitis. Flexor wrist: There is a complete tear of the flexor carpi radialis tendon. The tear occurs at the level of the slim ove of the trapezium. The proximal tear margin is retracted 2.5-3 cm proximally. There is moderate te ndinopathy of the tendon distal to the tear as well as extending 1.5 cm proximally from the tear perez in. The remaining flexor tendons of the wrist are normal. There is a sagittally oriented defect at th e flexor retinaculum consistent with prior carpal tunnel release. Guyon's canal: Guyon's canal including the ulnar nerve and artery are normal. Bones/other: Bone alignment is normal. No fracture, avascular necrosis or pathologic marrow replacing process. Mod erate osteoarthritis at the triscaphe joint. Mild osteoarthritis at the first carpometacarpal and and a few interphalangeal joints. There is enhancement at a small lytic lesion of the lunate at the junc tion of the volar aspect of the radial lunate and lunotriquetral articulations which could represent either a degenerative subchondral cyst or small erosion. No other enhancing erosions identified. The collateral ligament complex at the metacarpophalangeal and interphalangeal joints are normal. Intrins ic musculature of the hand is unremarkable. 9 x 5 x 4 mm ganglion cyst extending palmar from the radi al aspect of the radioscaphoid articulation which is located immediately adjacent to the flexor carpi radialis tear defect. IMPRESSION: 1. Complete tear and 2.5-3 cm proximal retraction of the flexor carpi radialis tendon which occurs at the level of the groove of the trapezium. 2. Polyarticular osteoarthritis, moderate at the triscaphe joint and mild at the first carpometacarpa l and several interphalangeal joints. Reviewed, dictated and finalized at location A. IMPRESSION: 1. Complete tear and 2.5-3 cm proximal retraction of the flexor carpi radialis tendon which occurs at the level of the groove of the trapezium. 2. Polyarticular osteoarthritis, moderate at the triscaphe joint and mild at th e first carpometacarpal and several interphalangeal joints.
== END 2024-06-09 07:30 | disposition home or self-care (01) ==
LOC: MICIMG 07:30
PROVIDERS: PCP Family Medicine Adolescent Medicine; Visit Provider Physician Assistant Surgical
DX: S66.118A Strain of flexor muscle, fascia and tendon of other finger at wrist and hand level, initial encounter (principal); M18.12 Unilateral primary osteoarthritis of first carpometacarpal joint, left hand; M19.042 Primary osteoarthritis, left hand; X58.XXXA Exposure to other specified factors, initial encounter
CPT/HCPCS: 73220; 73223; A9577

== ENCOUNTER 2024-08-15 10:40 | Outpatient (CLI) | payer BC, SELFPAY ==
--- NOTE | ~2024-08-15 | MMUS_ITS ---
EXAMINATION: MM diagnostic braulio LT w laurie, US breast LT limited HISTORY: Palpable left breast abnormality TECHNIQUE: Additional 3-D tomosynthesis images of the left breast were performed and synthetic 2-D im ages were generated. CAD analysis was submitted and interpreted. High resolution Limited left breast ultrasound was performed. COMPARISON: Comparison to multiple prior studies sequentially, with oldest reviewed study dated 03/2017. BREAST PARENCHYMAL COMPOSITION: Not dense: There are scattered areas of fibroglandular density. FINDINGS: MAMMOGRAPHIC FINDINGS: There are no suspicious masses, calcifications or architectural distortion in the left breast to sugg est malignancy. ULTRASOUND: Limited left breast ultrasound: In the area of palpable concern at T2-3 o'clock, 5 cm from the nipple there is a superficial intramammary lymph node measuring 6 mm with no cortical thickening. No suspic ious masses to suggest malignancy. IMPRESSION: 1. No evidence for malignancy in the left breast. Benign finding. 2. Routine yearly screening mammogram and regular clinical breast examination are recommended. BI-RADS Category 2: Benign finding(s). Reviewed, dictated and finalized at location B. [employer]UATOR IMPRESSION: 1. No evidence for malignancy in the left breast. Benign finding. 2. Routine yearly screening mammogram and regular clinical breast examination a re recommended. BI-RADS Category 2: Benign finding(s).
== END 2024-08-15 10:41 | disposition home or self-care (01) ==
LOC: ANHIMG 10:40
PROVIDERS: PCP Family Medicine Adolescent Medicine; Visit Provider Obstetrics & Gynecology
DX: N63.20 Unspecified lump in the left breast, unspecified quadrant (principal)
CPT/HCPCS: 76642; 77061; 77065; G0279

== ENCOUNTER 2024-10-20 14:52 | Outpatient (CLI) | payer BC, SELFPAY ==
--- NOTE | ~2024-10-20 | XR_ITS ---
HISTORY: Z96.641 - Presence of right artificial hip joint COMPARISON: 09/23/2021 TECHNIQUE: 2 views of the right hip along with an AP view of the pelvis FINDINGS: No acute fracture or dislocation is identified. Right total hip prosthetic is identified. No periprosthetic fracture is noted. The Fecal stasis within the colon. Air within the rectum. Normal mineralization. IMPRESSION: Degenerative disease without acute fracture or dislocation Reviewed, dictated and finalized at location [facility]. [facility]
--- OUTSIDE RECORDS SUMMARY | 2024-10-20 14:57 | XMS_ITS | Clinical Summary ---
Author Organization [address] Address [address] [place] [address] TATIANA Bull [id number] Care Team Providers Care Copy Director Name Role Phone Janey Sotelo CRANBERRY SORTER Unavailable [phone] Dillon Madrid MD Primary Care Prov ider Allergies Active Allergy Reactions Criticality Noted Date Comments Meperidine Rash Medium 04/01/2019 Medications albuterol 0.63 mg/3 mL nebulizer solution albuterol sulfate 0.63 mg/3 mL solution for nebulization Inhale by inhalation route. Active diclofenac DR (VOLTAREN) 75 mg EC tablet Take 1 tablet (75 mg total) by mouth 2 (two) times a day 2 Active estradioL (ESTRACE) 2 mg tablet Take 2 mg by mouth daily 2 Active meclizine (ANTIVERT) 25 mg tablet Take 50 mg by mouth daily Active Wegovy 2.4 mg/0.75 mL auto-injector 2 Active zolpidem (AMBIEN) 10 mg tablet Take 10 mg by mouth nightly at bedtime. [address] (PROTONIX) 40 mg EC tablet Take 1 tablet (40 mg total) by mouth every morning 3 Active nitroglycerin (NITROSTAT) 0.[address] 1 tablet (0.4 mg total) under the tongue every 5 (five) minutes as needed for chest pain 90 tablet 4 06/20/20 25 Active atorvastatin (LIPITOR) 20 mg tablet Take 1 tablet (20 mg total) by mouth daily 4 Active furosemide (LASIX) 20 mg tablet Active omega 0-waw-thu-fish oil (Fish OiL) 1,000 (120-180) mg capsule Active Hospital, Clinic, or Other Facility Administered Medication Ordered Dose Route Frequency Start Date End Date Status lidocaine (XYLOCAINE) 10 mg/mL (1 %) injection 1 mLIndications:Admi nistration of Local Anesthesia 1 mL One-Time Injection 09/21/2024 09/21/2024 Ended triamcinolone (KENALOG) 40 mg/mL injection 20 mgIndications:Left wrist pain 20 mg intra-artic One-Time Injection 09/21/2024 09/21/2024 Ended Active Problems Problem Noted Date Diagnosed Date Acute chest pain 06/18/2024 Encounters Date Type Department Care Team Description 09/21/2024 11:50 AM SERVICE LINE LAYER Ancillary Procedure [facility] Orthopaedic Surgery [address] [place] [address] Office [facility] [address] [place] [id number] Left wrist pain 09/21/2024 11:30 AM SERVICE LINE LAYER Procedure visit [facility] Orthopaedic Surgery [address] [place] [address] 4 [address] [place] [address] Adriana Sterling MD Left wrist pain (Primary Dx) 08/14/2024 11:10 AM SERVICE LINE LAYER Office Visit [facility] Orthopaedic Surgery [address] [place] [address] 6[address] [place] [address] [place] [address] Gumaro Craft MD Rupture of flexor tendon of wrist (Primary Dx) 07/24/2024 8:30 AM SERVICE LINE LAYER - 07/24/2024 11:59 PM SERVICE LINE LAYER Hospital Encounter [facility] Radiology [address] [place] [address] Discharge Disposition: Discharge to home or self care 07/24/2024 8:30 AM SERVICE LINE LAYER - 07/24/2024 11:59 PM SERVICE LINE LAYER Hospital Encounter [facility] Rad[facility] [address] [place] [address] Discharge Disposition: Discharge to home or self care 07/24/2024 8:30 AM SERVICE LINE LAYER - 07/24/2024 11:59 PM SERVICE LINE LAYER Hospital Encounter [facility] [address] [place] [address] Discharge Disposition: Discharge to home or self care 07/24/2024 8:30 AM SERVICE LINE LAYER - 07/24/2024 11:59 PM SERVICE LINE LAYER Hospital Encounter [facility] [address] [place] [address] Acute chest pain Discharge Disposition: Discharge to home or self care 07/24/2024 8:30 AM SERVICE LINE LAYER - 07/24/2024 11:59 PM SERVICE LINE LAYER Hospital Encounter [facility] [address] [place] [address] Acute chest pain Discharge Disposition: Discharge to home or self care from Last 3 Months Immunizations Name Administration Dates Next Due Influenza, Trivalent, Preservative Free, Intramu scular 06/20/2024 Medical History Medical History Date Comments Asthma GERD (gastroesophageal reflux disease) Headache 11/2018 HL (hearing loss) Sleep apnea Migraine 11/2018 Ear problems Family History Medical History Relation Name Comments Asthma Maternal Grandmother Mecca Mcleod Cancer Maternal Grandmother Mecca Mcleod Osteoarthritis Mother Raeann Card Sleep apnea Mother Raeann Card Snoring Mother Raeann Card Relation Name Status Comments Maternal Grandmother Mecca Mcleod Mother Raeann Card Social History Tobacco Use Types Packs/Day Years Used Date Smoking Tobacco: Former Cigarettes 1.5 43.1 S tarted: 09/1981 Tobacco Cessation:Counseling Given: Not Answered Personal Safety Answer Date Recorded Have you ever been in or are you currently in a harmful physical or emotional relationship or is someone making you feel afraid or unsafe? Denies 06/19/2024 Comments No Sex and Gender Information Value Date Recorded Sex Assigned at Not on file Legal Sex Female 5:31 AM SERVICE LINE LAYER Gender Identity Female 06/19/2022 4:37 PM CDT Sexual Orientation Not on file Obstetrics History Last Filed Vital Signs Vital Sign Reading Time Taken Comments Blood Pressure 129/82 07/24/2024 10:46 AM SERVICE LINE LAYER Pulse 68 07/24/2024 10:46 AM SERVICE LINE LAYER pre- Lexiscan Temperature 36.4 C (97.5 F) 06/20/2024 8:31 AM CDT Respiratory Rate 18 06/20/2024 8:31 AM CDT Oxygen Saturation 97% 06/20/2024 8:31 AM CDT Inhaled Oxygen Concentration - - Weight 102.5 kg (226 lb) 07/03/2024 2:46 PM CDT Height 170.2 cm (5' 7 ) 07/03/2024 2:46 PM CDT Body Mass Index 35.4 07/03/2024 2:46 PM CDT Plan of Treatment Health Maintenance Due Date Last Done Comments Breast Cancer Screening-Mammogram 1966 Cervical Cancer Screening 1966 Colon Cancer Screening-Colonoscopy 1966 Depression Screening 1966 Hepatitis C Screening 1966 DTaP/Tdap/Td Vaccine (1 - Tdap) 1977 Hepatitis B Screening 1984 Regular Well Visit/Exam 18-64 1984 Zoster Vaccine (1 of 2) 2016 Covid-19 Vaccine (3 - 2023-2 5 season) 2024 12/31/2020, 12/09/2020 Influenza Vaccine Completed 06/20/2024 Pneumococcal vaccine <65 Aged Out No longer eligible based on patient's age to complete this topic Procedures Procedure Name Priority Date/Time Associated Diagnosis Comments CHG US GUIDANCE NEEDLE PLACEMENT IMG S&I Routine 09/21/2024 12:08 PM SERVICE LINE LAYER Left wrist pain SD INJECTION 1 TENDON SHEATH/LIGAMENT APONEUROSIS Routine 09/21/2024 12:08 PM SERVICE LINE LAYER Left wrist pain POCUS SOFT TISSUE OF THE UPPER OR LOWER EXTREMITY Schedule Routine, Read Routine (OP Routine) 09/21/2024 11:45 AM SERVICE LINE LAYER Left wrist pain STRESS TEST FOR DUAL READ Schedule Routine, Read Routine (OP Routine) 07/24/2024 12:12 PM SERVICE LINE LAYER Acute chest pain NM MPI SPECT (STRESS) SINGLE STUDY Schedule Routine, Read Routine (OP Routine) 07/24/2024 12:12 PM SERVICE LINE LAYER Acute chest pain from Last 3 Months Results * SD INJECTION 1 TENDON SHEATH/LIGAMENT APONEUROSIS, CHG US GUIDANCE NEEDLE PLACEMENT IMG S&I (09/21/2024 12:08 PM SERVICE LINE LAYER) Narrative Adriana Sterling MD - 09/21/2024 12:08 PM SERVICE LINE LAYER Adriana Sterling MD 09/21/2024 12:12 PM Hand/UE Tendon Sheath Injection w/ Ultrasound Date/Time: 09/21/2024 12:08 PM Performed by: Adriana Sterling MD Authorized by: Adriana Sterling MD Procedure Details: Location: FCU (Flexor Carpi Radialis) Site: L FCU (Flexor Carpi Radialis) Ultrasound guidance: Yes Ultrasound guidance used for: Pre-procedure marking and real-time guidance Sterile ultrasound techniques: Sterile gel and sterile probe covers were used Ultrasound Note: See above Medications Left Hand/Upper Extremity Tendon Sheath Injection: 1 mL lidocaine 10 mg/mL (1 %); 20 mg triamcinolone 40 mg/mL Adriana Sterling MD IN CLINIC/BEDSIDE ORDERAB LES Final Result * POCUS Soft Tissue of the Upper or Lower Extremity (09/21/2024 11:45 AM SERVICE LINE LAYER) Narrative [facility] - 09/21/2024 11:45 AM SERVICE LINE LAYER This procedure was performed and interpreted by the provider. Please refer to the provider's procedure/OR operative note for results. us Adriana Sterling MD POCUS ORDERABLES Final Re sult [facility] * Stress Test for Myocardial Perfusion (07/24/2024 12:12 PM SERVICE LINE LAYER) Anatomical Region Laterality Modality Nuclear Medicine 07/24/2024 9:00 AM SERVICE LINE LAYER Narrative 07/24/2024 4:10 PM SERVICE LINE LAYER Patient name: Alberto Sierra Date of test: 07/24/2024 Type of Test: Pharmacologic Nuclear Stress Hospital #: 0 Location: [facility] Referring Physician(s): CATHY JOHNSON MD Supervised/Interpreted by: Brenden Yoon MD/Garrick Castorena MD RN: Helene Grimm RN Stress Agent: Regadenoson Reason for Test: Chest pain/anginal equiv, 10yr CHD risk 10-20%, EST candidate Cardiac History: No Cardiac Disease Other History: Asthma Risk Factors: Elevated Cholesterol, Post Menopausal, Obesity, Family History Pre-test Chest pain: No Chest Pain PHYSICAL EXAM: Lungs: Clear Heart Sounds: Normal Carotid Pulse: Brisk Carotid Brut: None Medications: Albuterol Medications withheld: yes BASELINE Electrocardiogram: Heart rate: 68 BP: 129/82 Rhythm: Sinus Rhythm Conduction Defects: Q Waves: Other: ST: HEMODYNAMIC PARAMETERS: Agent: Regadenoson 0.4mg over 4:00 min Peak Heart Rate: 85 Peak BP: 129/82 PMHR: 162 85%: 137.7 HR Isotope injected: 0 bpm Isotope: Tc 99m Tetrofosmin HR BP Baseline Infusion 68 129/82 00:00 Infusion 0 00:30 Infusion 0 01:00 Infusion 85 109/70 02:00 Infusion 83 113/74 03:00 Infusion 81 119/75 05:00 Post Infusion 78 06:00 Post Infusion 74 124/78 Terminated: Completion of protocol Comments: Chest Pain: Chest pain treatment: HR Response: Appropriate Blood Pressure Response: Appropriate ECG Abormalities During/After Stress: None ST Segment changes: None New Arrhythmias: None IMPRESSIONS: Negative ECG evidence of ischemia after IV Regadenoson. HR Response: Appropriate BP Response: Appropriate Confirmed on 07/24/2024 - 16:10:59 by Garrick Castorena MD It Manager: Brenden Yoon MD By signing this report, the attending chiropractic practice manager certifies that he or she has personally supervised and interpreted the stress test and has reviewed and or edited and agrees with the written comments contained within the report. Procedure Note Garrick Castorena MD PhD - 07/24/2024 Patient name: Alberto Sierra Date of test: 07/24/2024 Type of Test: Pharmacologic Nuclear Stress Hospital #: 0 Location: [facility] Referring Physician(s): CATHY JOHNSON MD Supervised/Interpreted by: Brenden Yoon MD/Garrick Castorena MD RN: Helene Grimm RN Stress Agent: Regadenoson Reason for Test: Chest pain/anginal equiv, 10yr CHD risk 10-20%, EST candidate Cardiac History: No Cardiac Disease Other History: Asthma Risk Factors: Elevated Cholesterol, Post Menopausal, Obesity, Family History Pre-test Chest pain: No Chest Pain PHYSICAL EXAM: Lungs: Clear Heart Sounds: Normal Carotid Pulse: Brisk Carotid Brut: None Medications: Albuterol Medications withheld: yes BASELINE Electrocardiogram: Heart rate: 68 BP: 129/82 Rhythm: Sinus Rhythm Conduction Defects: Q Waves: Other: ST: HEMODYNAMIC PARAMETERS: Agent: Regadenoson 0.4mg over 4:00 min Peak Heart Rate: 85 Peak BP: 129/82 PMHR: 162 85%: 137.7 HR Isotope injected: 0 bpm Isotope: Tc 99m Tetrofosmin HR BP Baseline Infusion 68 129/82 00:00 Infusion 0 00:30 Infusion 0 01:00 Infusion 85 109/70 02:00 Infusion 83 113/74 03:00 Infusion 81 119/75 05:00 Post Infusion 78 06:00 Post Infusion 74 124/78 Terminated: Completion of protocol Comments: Chest Pain: Chest pain treatment: HR Response: Appropriate Blood Pressure Response: Appropriate ECG Abormalities During/After Stress: None ST Segment changes: None New Arrhythmias: None IMPRESSIONS: Negative ECG evidence of ischemia after IV Regadenoson. HR Response: Appropriate BP Response: Appropriate Confirmed on 07/24/2024 - 16:10:59 by Garrick Castorena MD It Manager: Brenden Yoon MD By signing this report, the attending chiropractic practice manager certifies that he or she has personally supervised and interpreted the stress test and has reviewed and or edited and agrees with the written comments contained within the report. Cathy Johnson MD CV STRESS PROCEDURES Final Result * NM MPI SPECT (Stress) Single Study (07/24/2024 12:12 PM SERVICE LINE LAYER) Anatomical Region Laterality Modality Body N/A Nuclear Medicine 07/24/2024 1:40 PM SERVICE LINE LAYER Impressions 07/24/2024 1:55 PM SERVICE LINE LAYER 1. Normal myocardial perfusion during pharmacologic-stress. 2. Normal left ventricular size and systolic function. 3. No appreciable coronary artery calcifications. Dr. Santana also participated in the interpretation of this examination. Dictated by: Brenden Yoon M.D. The radiology attending physician has personally reviewed this study, and had reviewed and/or edited this written report and agrees with it. Electronically signed by: Cathy Johnson M.D. Narrative 07/24/2024 1:55 PM SERVICE LINE LAYER EXAMINATION: MYOCARDIAL IMAGING (PHARMACOLOGIC-STRESS/SPECT/CT) DATE OF STUDY: 07/24/2024 RADIOPHARMACEUTICAL: 9.55 mCi Tc-99m tetrofosmin i.v. HISTORY: 59-year-old female with history of obesity who presented to the ED for chest pain and had negative troponin. Evaluate for ischemia and/or myocardial infarction. The patient's body mass index (BMI) was 24.25. The electrocardiogram during infusion of the pharmacologic agent was negative for ischemia. FINDINGS: An intravenous infusion of 0.4 mg Regadenoson (A2A adenosine receptor agonist Lexiscan, infused intravenously over approximately 10 seconds, followed approximately after another 20 seconds by tracer infusion) was performed without low level exercise on the date indicated above. A complete description of the stress test and electrocardiographic results supervised by staff of the Cardiovascular Division is available in the [employer] electronic medical record. Standard myocardial perfusion images were obtained after tracer injection at the peak effect of the drug. Low-dose CT images spanning the heart were obtained for attenuation correction. COMPARISON: None The projection images were reviewed for image quality, and reveal no significant artifacts. There is widely normal distribution of activity in the left and right ventricular myocardium on stress images. Normal stress perfusion. Gated post-stress images demonstrate normal left ventricular volume, normal left ventricular wall motion and normal ejection fraction of 69 % (normal >45%). Rest imaging was not performed because there is normal stress perfusion and left ventricular wall motion Incidental findings on the low-dose CT images: No appreciable coronary calcifications. Calcified hilar nodules significant for old granulomatous disease. Prior cholecystectomy. Procedure Note Cathy Johnson MD - 07/24/2024 EXAMINATION: MYOCARDIAL IMAGING (PHARMACOLOGIC-STRESS/SPECT/CT) DATE OF STUDY: 07/24/2024 RADIOPHARMACEUTICAL: 9.55 mCi Tc-99m tetrofosmin i.v. HISTORY: 59-year-old female with history of obesity who presented to the ED for chest pain and had negative troponin. Evaluate for ischemia and/or myocardial infarction. The patient's body mass index (BMI) was 24.25. The electrocardiogram during infusion of the pharmacologic agent was negative for ischemia. FINDINGS: An intravenous infusion of 0.4 mg Regadenoson (A2A adenosine receptor agonist Lexiscan, infused intravenously over approximately 10 seconds, followed approximately after another 20 seconds by tracer infusion) was performed without low level exercise on the date indicated above. A complete description of the stress test and electrocardiographic results supervised by staff of the Cardiovascular Division is available in the [facility] electronic medical record. Standard myocardial perfusion images were obtained after tracer injection at the peak effect of the drug. Low-dose CT images spanning the heart were obtained for attenuation correction. COMPARISON: None The projection images were reviewed for image quality, and reveal no significant artifacts. There is widely normal distribution of activity in the left and right ventricular myocardium on stress images. Normal stress perfusion. Gated post-stress images demonstrate normal left ventricular volume, normal left ventricular wall motion and normal ejection fraction of 69 % (normal >45%). Rest imaging was not performed because there is normal stress perfusion and left ventricular wall motion Incidental findings on the low-dose CT images: No appreciable coronary calcifications. Calcified hilar nodules significant for old granulomatous disease. Prior cholecystectomy. IMPRESSION: 1. Normal myocardial perfusion during pharmacologic-stress. 2. Normal left ventricular size and systolic function. 3. No appreciable coronary artery calcifications. Dr. Santana also participated in the interpretation of this examination. Dictated by: Brenden Yoon M.D. The radiology attending physician has personally reviewed this study, and had reviewed and/or edited this written report and agrees with it. Electronically signed by: Cathy Johnson M.D. Cathy Johnson MD IM NM PROCEDURES Fi nal Result from Last 3 Months Insurance [facility] Advance Directives For more information, please contact: [phone] * Full Code (Latest Code Status on File) Date Activated Date Inactivated Comments 06/19/2024 7:10 PM 06/20/2024 5:20 PM Care Teams Copy Director Relationship Specialty Start Date End Date Dillon Madrid MD [address] [place] [address] PCP - General Family Medicine 06/18/24 Janey Sotelo NP [facility] [place] [address] Referring Physician Otolaryngology 06/23/22
--- OUTSIDE RECORDS SUMMARY | 2024-10-20 14:57 | XMS_ITS | Referral Summary ---
Author Organization [address] Address [address] [place] [address] Care Team Providers Care Public Health Sanitarian Technician Name Role Phone Janey Sotelo TAG PRESS OPERATOR Unavailable Dillon Madrid MD Primary Care Prov ider Encounters Date Type Department Care Team Description 09/21/2024 11:50 AM CIRCULATION ASSISTANT Ancillary Procedure [facility] Orthopaedic Surgery [address] [place] [address] 4 [address] [place] [address] Left wrist pain 09/21/2024 11:30 AM CIRCULATION ASSISTANT Procedure visit [facility] Orthopaedic Surgery [address] [place] [address] 4 [address] [place] [address] Adriana Sterling MD Left wrist pain (Primary Dx) 08/14/2024 11:10 AM CIRCULATION ASSISTANT Office Visit [facility] Orthopaedic Surgery [address] [facility] 6th [place] [address] [place] [address] Gumaro Craft MD Rupture of flexor tendon of wrist (Primary Dx) 07/24/2024 8:30 AM CIRCULATION ASSISTANT - 07/24/2024 11:59 PM CIRCULATION ASSISTANT Hospital Encounter [facility] Radiology 1 [facility] [place] [address] Discharge Disposition: Discharge to home or self care 07/24/2024 8:30 AM CIRCULATION ASSISTANT - 07/24/2024 11:59 PM CIRCULATION ASSISTANT Hospital Encounter [facility] Radiology 1 [place] [address] Discharge Disposition: Discharge to home or self care 07/24/2024 8:30 AM CIRCULATION ASSISTANT - 07/24/2024 11:59 PM CIRCULATION ASSISTANT Hospital Encounter [facility] Radiology 1 [place] [address] Discharge Disposition: Discharge to home or self care 07/24/2024 8:30 AM CIRCULATION ASSISTANT - 07/24/2024 11:59 PM CIRCULATION ASSISTANT Hospital Encounter [facility] Cardiac [facility] 1 [place] [address] Acute chest pain Discharge Disposition: Discharge to home or self care 07/24/2024 8:30 AM CIRCULATION ASSISTANT - 07/24/2024 11:59 PM CIRCULATION ASSISTANT Hospital Encounter [facility] Radiology 1 [place] [address] Acute chest pain Discharge Disposition: Discharge to home or self care from Last 3 Months Allergies Active Allergy Reactions Criticality Noted Date [...] for chest pain 90 tablet 4 06/20/20 Active atorvastatin (LIPITOR) 20 mg tablet Take 1 tablet (20 mg total) by mouth daily Active furosemide (LASIX) 20 mg tablet Active omega 1-edo-ttv-fish oil (Fish OiL) 1,000 (120-180) mg capsule [...] Date Diagnosed Date Acute chest pain 06/18/2024 Immunizations Name Administration Dates Next Due Influenza, Trivalent, Preservative Free, Intramu scular 06/20/2024 Social History Tobacco Use Types Packs/Day Years [...] on file Legal Sex Female 5:31 AM CIRCULATION ASSISTANT Gender Identity Female 06/19/2022 4:37 PM CDT Sexual Orientation Not on file Last Filed Vital Signs Vital Sign Reading Time Taken Comments Blood Pressure 129/82 07/24/2024 10:46 AM CIRCULATION ASSISTANT Pulse 68 07/24/2024 10:46 AM CIRCULATION ASSISTANT pre- Lexiscan Temperature 36.4 C (97.5 F) 06/20/2024 8:31 AM CDT Respiratory Rate 18 06/20/2024 8:31 AM CDT Oxygen Saturation 97% 06/20/2024 8:31 AM CDT Inhaled Oxygen Concentration - - Weight 102.5 kg (226 lb) 07/03/2024 2:46 PM CDT Height 170.2 cm (5' 7 ) 07/03/2024 2:46 PM CDT Body Mass Index 35.4 07/03/2024 2:46 PM CDT Plan of Treatment Not on file Procedures Procedure Name Priority Date/Time Associated Diagnosis Comments CHG US GUIDANCE NEEDLE PLACEMENT IMG S&I Routine 09/21/2024 12:08 PM CIRCULATION ASSISTANT Left wrist pain SC INJECTION 1 TENDON SHEATH/LIGAMENT APONEUROSIS Routine 09/21/2024 12:08 PM CIRCULATION ASSISTANT Left wrist pain POCUS SOFT TISSUE OF THE UPPER OR LOWER EXTREMITY Schedule Routine, Read Routine (OP Routine) 09/21/2024 11:45 AM CIRCULATION ASSISTANT Left wrist pain STRESS TEST FOR DUAL READ Schedule Routine, Read Routine (OP Routine) 07/24/2024 12:12 PM CIRCULATION ASSISTANT Acute chest pain NM MPI SPECT (STRESS) SINGLE STUDY Schedule Routine, Read Routine (OP Routine) 07/24/2024 12:12 PM CIRCULATION ASSISTANT Acute chest pain from Last 3 Months Results * SC INJECTION 1 TENDON SHEATH/LIGAMENT APONEUROSIS, CHG US GUIDANCE NEEDLE PLACEMENT IMG S&I (09/21/2024 12:08 PM CIRCULATION ASSISTANT) Narrative Adriana Sterling MD - 09/21/2024 12:08 PM CIRCULATION ASSISTANT Adriana Sterling MD 09/21/2024 12:12 PM Hand/UE [...] (1 %); 20 mg triamcinolone 40 mg/mL us Adriana Sterling MD IN CLINIC/BEDSIDE ORDERAB LES Final Result * POCUS Soft Tissue of the Upper or Lower Extremity (09/21/2024 11:45 AM CIRCULATION ASSISTANT) Narrative [facility]_PACS_POCUS_[facility] - 09/21/2024 11:45 AM CIRCULATION ASSISTANT This procedure was performed and interpreted by the provider. Please refer to the provider's procedure/OR operative note for results. us Adriana Sterling MD POCUS ORDERABLES Final Re sult RAD_PACS_POCUS_[facility] * Stress Test for Myocardial Perfusion (07/24/2024 12:12 PM CIRCULATION ASSISTANT) Anatomical Region Laterality Modality Nuclear Medicine 07/24/2024 9:00 AM CIRCULATION ASSISTANT Narrative 07/24/2024 4:10 PM CIRCULATION ASSISTANT Patient name: Alberto Sierra Date of test: 07/24/2024 Type of Test: Pharmacologic Nuclear Stress Hospital #: 0 Location: [facility] Referring Physician(s): CATHY RONQUILLO MD Supervised/Interpreted by: Brenden Yoon MD/Garrick Castorena [...] 07/24/2024 - 16:10:59 by Garrick Castorena MD Automated Access Systems Technician: Brenden Yoon MD By signing this report, the attending speech therapist certifies that he or she has personally supervised and interpreted the stress test and has reviewed and or edited and agrees with the written comments contained within the report. Procedure Note Garrick Castorena MD PhD - 07/24/2024 Patient name: Alberto Sierra Date of test: 07/24/2024 Type of Test: Pharmacologic Nuclear Stress Hospital #: 0 Location: [facility] Referring Physician(s): CATHY RONQUILLO MD Supervised/Interpreted by: Brenden Yoon MD/Garrick Castorena [...] 07/24/2024 - 16:10:59 by Garrick Castorena MD Automated Access Systems Technician: Brenden Yoon MD By signing this report, the attending speech therapist certifies that he or she has personally supervised and interpreted the stress test and has reviewed and or edited and agrees with the written comments contained within the report. us Cathy Ronquillo MD CV STRESS PROCEDURES Final Result * NM MPI SPECT (Stress) Single Study (07/24/2024 12:12 PM CIRCULATION ASSISTANT) Anatomical Region Laterality Modality Body N/A Nuclear Medicine 07/24/2024 1:40 PM CIRCULATION ASSISTANT Impressions 07/24/2024 1:55 PM CIRCULATION ASSISTANT 1. Normal myocardial perfusion during pharmacologic-stress. 2. Normal left ventricular size and systolic function. 3. No appreciable coronary artery calcifications. Dr. Santana also participated in the interpretation of this examination. Dictated by: Brenden Yoon M.D. The radiology attending physician has personally reviewed this study, and had reviewed and/or edited this written report and agrees with it. Electronically signed by: Cathy Ronquillo M.D. Narrative 07/24/2024 1:55 PM CIRCULATION ASSISTANT EXAMINATION: MYOCARDIAL IMAGING (PHARMACOLOGIC-STRESS/SPECT/CT) DATE OF STUDY: [...] the Cardiovascular Division is available in the [facility] electronic medical record. Standard myocardial perfusion images [...] granulomatous disease. Prior cholecystectomy. Procedure Note Cathy Ronquillo MD - 07/24/2024 EXAMINATION: MYOCARDIAL IMAGING (PHARMACOLOGIC-STRESS/SPECT/CT) [...] the Cardiovascular Division is available in the [facility] electronic medical record. Standard myocardial perfusion images [...] agrees with it. Electronically signed by: Cathy Ronquillo M.D. Cathy Ronquillo MD IMG NM PROCEDURES Fi nal Result from Last 3 Months Insurance [employer] [facility] [employer] [place] Advance Directives For more information, please contact: [phone] * Full Code (Latest Code Status on File) Date Activated Date Inactivated Comments 06/19/2024 7:10 PM 06/20/2024 5:20 PM Care Teams Public Health Sanitarian Technician Relationship Specialty Start Date End Date Dillon Madrid MD [address] [place] [address] PCP - General Family Medicine 06/18/24 Janey Sotelo NP [address] [place] [address] Referring Physician Otolaryngology 06/23/22
== END 2024-10-20 14:53 | disposition home or self-care (01) ==
PROVIDERS: PCP Family Medicine Adolescent Medicine; Visit Provider Orthopaedic Surgery
DX: M16.11 Unilateral primary osteoarthritis, right hip (principal); Z96.641 Presence of right artificial hip joint
CPT/HCPCS: 73502

== ENCOUNTER 2024-10-24 16:11 | Outpatient (CLI) | payer BC, SELFPAY ==
--- OUTSIDE RECORDS SUMMARY | 2024-10-24 16:28 | XMS_ITS | Referral Summary ---
Author Organization [address] Address [address] [place] [address] Care Team Providers Care Sales Representative [employer] Name Role Phone Janey Sotelo SEC ACCOUNTANT Unavailable [phone] Dillon Madrid MD Primary Care Prov ider Encounters Date Type Department Care Team Description 09/21/2024 11:50 AM ONLINE COMMUNICATIONS SPECIALIST Ancillary Procedure [facility] Orthopaedic Surgery [address] [place] [address] 4 [address] [place] [address] Left wrist pain 09/21/2024 11:30 AM ONLINE COMMUNICATIONS SPECIALIST Procedure visit [facility] Orthopaedic Surgery [address] [place] [address] 4 [address] [place] [address] Adriana Sterling MD Left wrist pain (Primary Dx) 08/14/2024 11:10 AM ONLINE COMMUNICATIONS SPECIALIST Office Visit [facility] Orthopaedic Surgery [address] [facility] 6th [place] [address] [place] [address] Gumaro Craft MD Rupture of flexor tendon of wrist (Primary Dx) 07/24/2024 8:30 AM ONLINE COMMUNICATIONS SPECIALIST - 07/24/2024 11:59 PM ONLINE COMMUNICATIONS SPECIALIST Hospital Encounter [facility] Radiology [address] [facility] [place] [address] Discharge Disposition: Discharge to home or self care 07/24/2024 8:30 AM ONLINE COMMUNICATIONS SPECIALIST - 07/24/2024 11:59 PM ONLINE COMMUNICATIONS SPECIALIST Hospital Encounter [facility] Radiology 1 [place] [address] Discharge Disposition: Discharge to home or self care 07/24/2024 8:30 AM ONLINE COMMUNICATIONS SPECIALIST - 07/24/2024 11:59 PM ONLINE COMMUNICATIONS SPECIALIST Hospital Encounter [facility] Radiology 1 [place] [address] Discharge Disposition: Discharge to home or self care 07/24/2024 8:30 AM ONLINE COMMUNICATIONS SPECIALIST - 07/24/2024 11:59 PM ONLINE COMMUNICATIONS SPECIALIST Hospital Encounter [facility] Card[facility] 1 [place] [address] Acute chest pain Discharge Disposition: Discharge to home or self care 07/24/2024 8:30 AM ONLINE COMMUNICATIONS SPECIALIST - 07/24/2024 11:59 PM ONLINE COMMUNICATIONS SPECIALIST Hospital Encounter [facility] Radiology 1 [place] [address] Acute chest pain Discharge Disposition: Discharge to [...] furosemide (LASIX) 20 mg tablet Active omega 4-mjc-phq-fish oil (Fish OiL) 1,000 (120-180) mg capsule Active Active Problems Problem Noted Date Diagnosed Date [...] on file Legal Sex Female 5:31 AM ONLINE COMMUNICATIONS SPECIALIST Gender Identity Female 06/19/2022 4:37 PM CDT Sexual Orientation Not on file Last Filed Vital Signs Vital Sign Reading Time Taken Comments Blood Pressure 129/82 07/24/2024 10:46 AM ONLINE COMMUNICATIONS SPECIALIST Pulse 68 07/24/2024 10:46 AM ONLINE COMMUNICATIONS SPECIALIST pre- Lexiscan Temperature 36.4 C (97.5 F) [...] PLACEMENT IMG S&I Routine 09/21/2024 12:08 PM ONLINE COMMUNICATIONS SPECIALIST Left wrist pain MI INJECTION 1 TENDON SHEATH/LIGAMENT APONEUROSIS Routine 09/21/2024 12:08 PM ONLINE COMMUNICATIONS SPECIALIST Left wrist pain POCUS SOFT TISSUE OF THE UPPER OR LOWER EXTREMITY Schedule Routine, Read Routine (OP Routine) 09/21/2024 11:45 AM ONLINE COMMUNICATIONS SPECIALIST Left wrist pain STRESS TEST FOR DUAL READ Schedule Routine, Read Routine (OP Routine) 07/24/2024 12:12 PM ONLINE COMMUNICATIONS SPECIALIST Acute chest pain NM MPI SPECT (STRESS) SINGLE STUDY Schedule Routine, Read Routine (OP Routine) 07/24/2024 12:12 PM ONLINE COMMUNICATIONS SPECIALIST Acute chest pain from Last 3 Months Results * MI INJECTION 1 TENDON SHEATH/LIGAMENT APONEUROSIS, CHG US GUIDANCE NEEDLE PLACEMENT IMG S&I (09/21/2024 12:08 PM ONLINE COMMUNICATIONS SPECIALIST) Narrative Adriana Sterling MD - 09/21/2024 12:08 PM ONLINE COMMUNICATIONS SPECIALIST Adriana Sterling MD 09/21/2024 12:12 PM Hand/UE [...] Upper or Lower Extremity (09/21/2024 11:45 AM ONLINE COMMUNICATIONS SPECIALIST) Narrative RAD_PACS_POCUS_[facility] - 09/21/2024 11:45 AM ONLINE COMMUNICATIONS SPECIALIST This procedure was performed and interpreted by the provider. Please refer to the provider's procedure/OR operative note for results. us Adriana Sterling MD POCUS ORDERABLES Final Re sult [facility] * Stress Test for Myocardial Perfusion (07/24/2024 12:12 PM ONLINE COMMUNICATIONS SPECIALIST) Anatomical Region Laterality Modality Nuclear Medicine 07/24/2024 9:00 AM ONLINE COMMUNICATIONS SPECIALIST Narrative 07/24/2024 4:10 PM ONLINE COMMUNICATIONS SPECIALIST Patient name: Alberto Sierra Date of test: 07/24/2024 Type of Test: Pharmacologic Nuclear Stress Hospital #: 0 Location: [facility] Referring Physician(s): CATHY RONQUILLO MD Supervised/Interpreted by: [...] 07/24/2024 - 16:10:59 by Garrick Castorena MD Computer Terminal Operator: Brenden Yoon MD By signing this report, the attending metal sponge making machine operator certifies that he or she has personally supervised and interpreted the stress test and has reviewed and or edited and agrees with the written comments contained within the report. Procedure Note Garrick Castorena MD PhD - 07/24/2024 Patient name: Alberto Sierra Date of test: 07/24/2024 Type of Test: Pharmacologic Nuclear Stress Hospital #: 0 Location: [facility] Referring Physician(s): CATHY RONQUILLO MD Supervised/Interpreted by: [...] 07/24/2024 - 16:10:59 by Garrick Castorena MD Computer Terminal Operator: Brenden Yoon MD By signing this report, the attending metal sponge making machine operator certifies that he or she has personally supervised and interpreted the stress test and has reviewed and or edited and agrees with the written comments contained within the report. us Cathy Ronquillo MD CV STRESS PROCEDURES Final Result * NM MPI SPECT (Stress) Single Study (07/24/2024 12:12 PM ONLINE COMMUNICATIONS SPECIALIST) Anatomical Region Laterality Modality Body N/A Nuclear Medicine 07/24/2024 1:40 PM ONLINE COMMUNICATIONS SPECIALIST Impressions 07/24/2024 1:55 PM ONLINE COMMUNICATIONS SPECIALIST 1. Normal myocardial perfusion during pharmacologic-stress. 2. [...] Cathy Ronquillo M.D. Narrative 07/24/2024 1:55 PM ONLINE COMMUNICATIONS SPECIALIST EXAMINATION: MYOCARDIAL IMAGING (PHARMACOLOGIC-STRESS/SPECT/CT) DATE OF STUDY: [...] the Cardiovascular Division is available in the [facility] electronic medical record. Standard myocardial perfusion images [...] the Cardiovascular Division is available in the [facility] electronic medical record. Standard myocardial perfusion images [...] by: Cathy Ronquillo M.D. Cathy Ronquillo MD IM NM PROCEDURES Fi nal Result from Last 3 Months Insurance [employer] [place] [employer] [place] Advance Directives For more information, please contact: [phone] * Full Code (Latest Code Status on File) Date Activated Date Inactivated Comments 06/19/2024 7:10 PM 06/20/2024 5:20 PM Care Teams Sales Representative [employer] Relationship Specialty Start Date End Date Dillon Madrid MD [address] [place] [address] PCP - General Family Medicine 06/18/24 Janey Sotelo NP [address] [place] [address] Referring Physician Otolaryngology 06/23/22
--- OUTSIDE RECORDS SUMMARY | 2024-10-24 16:28 | XMS_ITS | Clinical Summary ---
Author Organization [address] Address [address] [place] [address] TATIANA Bull [address] Care Team Providers Care Client Delivery Manager Name Role Phone Janey Sotelo MANAGER PUBLISHING Unavailable [phone] Dillon Madrid MD Primary Care Prov ider [...] furosemide (LASIX) 20 mg tablet Active omega 9-sir-yev-fish oil (Fish OiL) 1,000 (120-180) mg capsule Active Active Problems Problem Noted Date Diagnosed Date Acute chest pain 06/18/2024 Encounters Date Type Department Care Team Description 09/21/2024 11:50 AM ACCOUNT RESOLUTION EXPERT Ancillary Procedure [facility] Orthopaedic Surgery [address] [place] [address] [address] [place] [address] Left wrist pain 09/21/2024 11:30 AM ACCOUNT RESOLUTION EXPERT Procedure visit [facility] Orthopaedic Surgery [address] [place] [address] 4 [address] [place] [address] Adriana Sterling MD Left wrist pain (Primary Dx) 08/14/2024 11:10 AM ACCOUNT RESOLUTION EXPERT Office Visit [facility] Orthopaedic Surgery [address] [place] [address] 6th [place] [address] [place] [address] Gumaro Craft MD Rupture of flexor tendon of wrist (Primary Dx) 07/24/2024 8:30 AM ACCOUNT RESOLUTION EXPERT - 07/24/2024 11:59 PM ACCOUNT RESOLUTION EXPERT Hospital Encounter [facility] 1 [place] [address] Discharge Disposition: Discharge to home or self care 07/24/2024 8:30 AM ACCOUNT RESOLUTION EXPERT - 07/24/2024 11:59 PM ACCOUNT RESOLUTION EXPERT Hospital Encounter [facility] Radiology 1 [place] [address] Discharge Disposition: Discharge to home or self care 07/24/2024 8:30 AM ACCOUNT RESOLUTION EXPERT - 07/24/2024 11:59 PM ACCOUNT RESOLUTION EXPERT Hospital Encounter [facility] Rad[facility] 1 [place] [address] Discharge Disposition: Discharge to home or self care 07/24/2024 8:30 AM ACCOUNT RESOLUTION EXPERT - 07/24/2024 11:59 PM ACCOUNT RESOLUTION EXPERT Hospital Encounter [facility] Card[facility] [address] [place] [address] Acute chest pain Discharge Disposition: Discharge to home or self care 07/24/2024 8:30 AM ACCOUNT RESOLUTION EXPERT - 07/24/2024 11:59 PM ACCOUNT RESOLUTION EXPERT Hospital Encounter [facility] Rad[facility] 1 [place] [address] Acute chest pain Discharge Disposition: Discharge to [...] on file Legal Sex Female 5:31 AM ACCOUNT RESOLUTION EXPERT Gender Identity Female 06/19/2022 4:37 PM CDT Sexual Orientation Not on file Obstetrics History Last Filed Vital Signs Vital Sign Reading Time Taken Comments Blood Pressure 129/82 07/24/2024 10:46 AM ACCOUNT RESOLUTION EXPERT Pulse 68 07/24/2024 10:46 AM ACCOUNT RESOLUTION EXPERT pre- Lexiscan Temperature 36.4 C (97.5 F) [...] PLACEMENT IMG S&I Routine 09/21/2024 12:08 PM ACCOUNT RESOLUTION EXPERT Left wrist pain IN INJECTION 1 TENDON SHEATH/LIGAMENT APONEUROSIS Routine 09/21/2024 12:08 PM ACCOUNT RESOLUTION EXPERT Left wrist pain POCUS SOFT TISSUE OF THE UPPER OR LOWER EXTREMITY Schedule Routine, Read Routine (OP Routine) 09/21/2024 11:45 AM ACCOUNT RESOLUTION EXPERT Left wrist pain STRESS TEST FOR DUAL READ Schedule Routine, Read Routine (OP Routine) 07/24/2024 12:12 PM ACCOUNT RESOLUTION EXPERT Acute chest pain NM MPI SPECT (STRESS) SINGLE STUDY Schedule Routine, Read Routine (OP Routine) 07/24/2024 12:12 PM ACCOUNT RESOLUTION EXPERT Acute chest pain from Last 3 Months Results * IN INJECTION 1 TENDON SHEATH/LIGAMENT APONEUROSIS, CHG US GUIDANCE NEEDLE PLACEMENT IMG S&I (09/21/2024 12:08 PM ACCOUNT RESOLUTION EXPERT) Narrative Adriana Sterling MD - 09/21/2024 12:08 PM ACCOUNT RESOLUTION EXPERT Adriana Sterling MD 09/21/2024 12:12 PM Hand/UE [...] Upper or Lower Extremity (09/21/2024 11:45 AM ACCOUNT RESOLUTION EXPERT) Narrative RAD_PACS_POCUS_[facility] - 09/21/2024 11:45 AM ACCOUNT RESOLUTION EXPERT This procedure was performed and interpreted by the provider. Please refer to the provider's procedure/OR operative note for results. us Adriana Sterling MD POCUS ORDERABLES Final Re sult RAD_PACS_POCUS_[facility] * Stress Test for Myocardial Perfusion (07/24/2024 12:12 PM ACCOUNT RESOLUTION EXPERT) Anatomical Region Laterality Modality Nuclear Medicine 07/24/2024 9:00 AM ACCOUNT RESOLUTION EXPERT Narrative 07/24/2024 4:10 PM ACCOUNT RESOLUTION EXPERT Patient name: Alberto Sierra Date of test: 07/24/2024 Type of Test: Pharmacologic Nuclear Stress Hospital #: 0 Location: [facility] Referring Physician(s): CATHY JOHNSON MD Supervised/Interpreted [...] 07/24/2024 - 16:10:59 by Garrick Castorena MD Pipe Finisher: Brenden Yoon MD By signing this report, the attending compensation consulting manager certifies that he or she has personally supervised and interpreted the stress test and has reviewed and or edited and agrees with the written comments contained within the report. Procedure Note Garrick Castorena MD PhD - 07/24/2024 Patient name: Alberto Sierra Date of test: 07/24/2024 Type of Test: Pharmacologic Nuclear Stress Hospital #: 0 Location: [facility] Referring Physician(s): CATHY JOHNSON MD Supervised/Interpreted [...] 07/24/2024 - 16:10:59 by Garrick Castorena MD Pipe Finisher: Brenden Yoon MD By signing this report, the attending compensation consulting manager certifies that he or she has personally supervised and interpreted the stress test and has reviewed and or edited and agrees with the written comments contained within the report. us Cathy Johnson MD CV STRESS PROCEDURES Final Result * NM MPI SPECT (Stress) Single Study (07/24/2024 12:12 PM ACCOUNT RESOLUTION EXPERT) Anatomical Region Laterality Modality Body N/A Nuclear Medicine 07/24/2024 1:40 PM ACCOUNT RESOLUTION EXPERT Impressions 07/24/2024 1:55 PM ACCOUNT RESOLUTION EXPERT 1. Normal myocardial perfusion during pharmacologic-stress. 2. [...] Cathy Johnson M.D. Narrative 07/24/2024 1:55 PM ACCOUNT RESOLUTION EXPERT EXAMINATION: MYOCARDIAL IMAGING (PHARMACOLOGIC-STRESS/SPECT/CT) DATE OF STUDY: [...] the Cardiovascular Division is available in the [facility] electronic medical record. Standard myocardial perfusion images [...] the Cardiovascular Division is available in the [facility] electronic medical record. Standard myocardial perfusion images [...] by: Cathy Johnson M.D. Cathy Johnson MD IMG NM PROCEDURES Fi nal Result from Last 3 Months Insurance [email or web address] [place] [email or web address] [place] Advance Directives For more information, please contact: [phone] * Full Code (Latest Code Status on File) Date Activated Date Inactivated Comments 06/19/2024 7:10 PM 06/20/2024 5:20 PM Care Teams Client Delivery Manager Relationship Specialty Start Date End Date Dillon Madrid MD [address] [place] [address] PCP - General Family Medicine 06/18/24 Janey Sotelo NP [address] [place] [address] Referring Physician Otolaryngology 06/23/22
[2024-10-24 17:11] LABS: Erythrocyte Sedimentation Rate 20 mm/hr (0-20)
[2024-10-24 17:25] LABS: CRP < 0.5 mg/dL (<1.0)
== END 2024-10-24 16:12 | disposition home or self-care (01) ==
LOC: ANHLAB 16:12
PROVIDERS: PCP Family Medicine Adolescent Medicine; Visit Provider Orthopaedic Surgery
DX: M25.551 Pain in right hip (principal); Z96.641 Presence of right artificial hip joint
CPT/HCPCS: 36415; 85652; 86140

== ENCOUNTER 2024-11-14 09:34 | Outpatient (CLI) | payer BC, SELFPAY | END 2024-11-14 09:35 | disposition home or self-care (01) | PROVIDERS: PCP Family Medicine Adolescent Medicine; Visit Provider Obstetrics & Gynecology | DX: Z12.31 Encounter for screening mammogram for malignant neoplasm of breast (principal) | CPT/HCPCS: 77063; 77067 ==

== ENCOUNTER 2025-03-12 18:00 | Emergency (ER) | payer BC, SELFPAY ==
--- NOTE | ~2025-03-12 | XR_ITS ---
EXAM: XR toe 1st LT min 2V DATE: 03/12/2025 21:03 HISTORY: pain, injury . COMPARISON: 10/15/2006. FINDINGS: Normal mineralization. Nondisplaced oblique fracture of the proximal aspect of the first d istal phalanx, with intra-articular extension. Status post screw and plate fixation of the first MTP joint. No hardware related consultation. No lytic or blastic lesion. Moderate scattered degenerative changes. No erosion or periosteal change. Soft tissues within normal limits. IMPRESSION: Oblique, nondisplaced, intra-articular fracture of the first distal phalanx. Reviewed, dictated and finalized at location K.
[2025-03-12 18:02] VITALS: BP 135/79; PULSE 85; RESP 18; TEMP 36.7; O2SAT 96
--- OUTSIDE RECORDS SUMMARY | 2025-03-12 18:02 | XMS_ITS | Clinical Summary ---
Author Organization [facility] Address [address] Suarez: Epic Prelude ADT [place]EN[place]T [address] Care Team Providers Care Train Driver Name Role Phone Unavailable Primary Care Provider Unavailabl e Social History Tobacco Use Types Packs/Day Years Used Date Smoking Tobacco: Never Assessed Comments Unknown Sex and Gender Information Value Date Recorded Sex Assigned at Not on file Legal Sex Female 4:18 AM DIVISION HUMAN RESOURCES MANAGER Gender Identity Not on file Sexual Orientation Not on file Plan of Treatment Health Maintenance Due Date Last Done Comments DTAP/TDAP/TD VACCINES (1 - Tdap) 1985 HEPATITIS B VACCINES (1 of 3 - 19+ 3-dose series) 04/14 HPV/Cotest (21-29) 1987 CERVICAL CANCER SCREENING 1996 HPV/Cotest (30-65) 1996 PAP SMEAR 1996 BREAST CANCER SCREENING 2006 COLORECTAL SCREENING 2011 Colorectal Cancer Screening 2011 FIT-DNA Q 3 years 2011 FIT/FOBT Q 1 year 2011 Flex Sig/CT Colonography Q 5 years 2011 ZOSTER VACCINE (1 of 2) 2016 INFLUENZA VACCINE (#1) 2024
--- OUTSIDE RECORDS SUMMARY | 2025-03-12 18:02 | XMS_ITS | Clinical Summary ---
Author Organization [facility] Address [address] [place] [address] Care Team Providers Care Medical Staff Credentialing Coordinator Name Role Phone Dillon Madrid MD Primary Care Provider [phone] None, Provider MD Unavailable Unavailable Allergies Active Allergy Reactions Criticality Noted Date Comments Meperidine Rash Low 04/01/2019 Medications clotrimazole-be tamethasone cream Apply 1 Application topically 3 (three) times a day. Active diclofenac EC 75 MG tablet Take 150 mg by mouth daily. Active estradiol 2 MG tablet Take 2 mg by mouth daily. Active furosemide 20 MG tablet Take 10 mg by mouth daily as needed. Active gabapentin 300 MG capsule Take 300 mg by mouth nightly at bedtime. Active meclizine 25 MG tablet Take 50 mg by mouth daily. Active omeprazole 20 MG capsule Take 20 mg by mouth daily. Active tizanidine 4 MG tablet Take 4 mg by mouth nightly as needed. Active fish oil 1000 MG Cap capsule Take 1,000 mg by mouth 2 (two) times daily. Active ACAI ALVAREZ OR Take 1 capsule by mouth daily. Active albuterol sulfate HFA 108 (90 Base) MCG/ACT inhaler Inhale 2 puffs into the lungs every 6 (six) hours as needed for Wheezing. 1 Inhaler 9 Active benzonatate 200 MG capsule Take 1 capsule (200 mg total) by mouth 3 (three) times daily as needed. 20 capsule 0 Active albuterol (2.5 MG/3ML) 0.083% nebulizer solution Take 3 mLs (2.5 mg total) by nebulization every 4 (four) hours as needed for Wheezing or Shortness of breath. 360 mL 0 Active estradiol (ESTRACE) 2 MG tablet Take 1 tablet (2 mg total) by mouth. Active pantoprazole EC (PROTONIX) 40 MG tablet Take 1 tablet (40 mg total) by mouth daily. Active diclofenac EC (VOLTAREN) 75 MG tablet Take 1 tablet (75 mg total) by mouth 2 (two) times daily. Active zolpidem (AMBIEN) 10 MG tablet Take 1 tablet (10 mg total) by mouth nightly as needed for Sleep. Active ACAI ALVAREZ OR Take 2 tablets by mouth daily. Active albuterol sulfate HFA 108 (90 Base) MCG/ACT inhaler Inhale 2 puffs into the lungs every 4 (four) hours as needed for Wheezing or Shortness of breath. 6.7 g 3 Active guaiFENesin ER (MUCINEX) 600 MG 12 hr tablet Take 1 tablet (600 mg total) by mouth 2 (two) times daily. 28 tablet 3 Active Active Problems Problem Noted Date Diagnosed Date Sepsis ([facility]) 09/10/2023 Carpal tunnel syndrome 09/10/2023 3 Pain in wrist 09/10/2023 09/10/2023 Social History Tobacco Use Types Packs/Day Years Used Date Smoking Tobacco: Former Cigarettes Q uit: 03/03/2019 Smokeless Tobacco: Never Alcohol Use Standard Drinks/Week Comments Not Currently 0 (1 standard drink = 0.6 oz pure alcohol) 4-5x per year, Only socially [facility] Utilities Answer Date Recorded In the past 12 months has e [place], gas, oil, or water [employer] threatened to shut off services in your home? No 09/10/2023 Humiliation, Afraid, Rape, and Kick questionnair e Answer Date Recorded Within the last year, have y ou been afraid of your partner or ex-partner? No 09/10/2023 Within the last year, have y ou been humiliated or emotionally abused in other ways by your partner or ex-partner? No Within the last year, have y ou been kicked, hit, slapped, or otherwise physically hurt by your partner or ex-partner? No 09/10/2023 Within the last year, have y ou been raped or forced to have any kind of sexual activity by your partner or ex-partner? No 09/10/2023 AUDIT-C Answer Date Recorded Frequency of Alcohol Consumption Never 04/01/2019 Average Number of Drinks Not on file 019 Frequency of Binge Drinking Not on file 03/14 Overall Financial Resource Strain (CARDIA) Answe r Date Recorded How hard is it for you to pa y for the very basics like food, housing, medical care, and heating? Not hard at all 09/10/2023 Hunger Vital Sign Answer Date Recorded Within the past 12 months, y ou worried that your food would run out before you got the money to buy more. Never true 09/10/20 23 Within the past 12 months, t he food you bought just didn't last and you didn't have money to get more. Never true 09/10/2023 PRAPARE - Transportation Answer Date Re corded In the past 12 months, has l ack of transportation kept you from medical appointments or from getting medications? No 08/14 In the past 12 months, has l ack of transportation kept you from meetings, work, or from getting things needed for daily living? No 09/10/2023 Housing Stability Vital Sign Answer I[place]onso e Recorded In the last 12 months, was t here a time when you were not able to pay the mortgage or rent on time? No 09/10/2023 In the last 12 months, how many places have you lived? 1 09/10/2023 In the last 12 months, was t here a time when you did not have a steady place to sleep or slept in a penitentiary (including now)? 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 Pulse 67 09/12/2023 12:25 PM SAMPLE WORKER Temperature 36.4 C (97.5 F) 09/12/2023 12:25 PM SAMPLE WORKER Respiratory Rate 18 09/12/2023 12:2 5 PM SAMPLE WORKER Oxygen Saturation 97% 09/12/2023 12: 25 PM SAMPLE WORKER Inhaled Oxygen Concentration - - Weight 108.3 kg (238 lb 12.1 oz) 09/12/2023 4:08 AM SAMPLE WORKER Height 170.2 cm (5' 7) 09/10/2023 2:58 AM SAMPLE WORKER Body Mass Index 37.39 09/10/2023 2:58 AM SAMPLE WORKER Plan of Treatment Health Maintenance Due Date Last Done Comments Colorectal Cancer Screening Colonoscopy (10 Years) 1966 Annual Physical 1969 Hepatitis C 1984 DTaP, Tdap and Td Vaccines ( 1 - Tdap) 1985 Hepatitis B Vaccines (1 of 3 - 19+ 3-dose series) 1985 Mammogram Screening 2006 Pneumococcal Vaccine: 50+ Years (1 of 1 - PCV) 2016 Zoster Vaccines (1 of 2) 2016 COVID-19 Vaccine (3 - 2023-2 5 season) 2024 12/31/2020, 12/09/2020 Meningococcal B Vaccine Aged Out No l onger eligible based on patient's age to complete this topic Meningococcal Vaccine Aged Out No lilly mallory eligible based on patient's age to complete this topic RSV Immunizations Under 20 Months Aged Out No longer eligible b ased on patient's age to complete this topic Insurance [facility] Advance Directives * Full Code (Latest Code Status on File) Date Activated Date Inactivated Comments 09/10/2023 10:58 AM 09/12/2023 6:10 PM Care Teams Medical Staff Credentialing Coordinator Relationship Specialty Start Date End Date Dillon Madrid MD [address] [id number] PCP - General FAMILY PRACTICE 09/09/23 None, MD Ave 09/09/23
--- OUTSIDE RECORDS SUMMARY | 2025-03-12 18:02 | XMS_ITS | Encounter Summary ---
Author Organization [facility] Address 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
--- OUTSIDE RECORDS SUMMARY | 2025-03-12 18:02 | XMS_ITS | Data Portability ---
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 There is currently no fever, chills, erythema, drainage, evidence of infection or significant problem with pain. Sensation is improved. Strength is improving. EXAM: The wound looks excellent. It is clean and dry. There is no erythema, drainage, or evidence of infection. No significant swelling. Strength is improving. Good strength of the thenar muscles. PLAN: Continue routine therapy, precautions and restrictions. Progress activity as tolerated. WORK RESTRICTIONS: The patient may return to work: 10-pound lifting restriction, limited repetitive use. Splint is optional. Impairment deferred. MMI2 weeks. Return 2weeks [email or web address] Not available 07/22/2015 16:23:20 08/12/2015 08/12/2015 Diagnoses: Right Carpal tunnel release7 weeks HISTORY: The patient has been doing very well and is very pleased with the result. Sensation, strength and function are greatly improved. There are no specific or significant complaints or functional limitations. EXAM: The wound is excellent. Soft, nontender, mature. Minimal pillar tenderness. Excellent strength of the intrinsic and extrinsic muscles. PLAN: Resume regular activity. WORK RESTRICTIONS: T he patient may return to work without restriction. MMI has been reached. Impairment is zero. Return as needed. [email or web address] Not available 08/12/2015 11:12:42 09/09/2015 09/09/2015 DX: APPROXIMATELY3 WEEKS STATUS POST LEFTCARPAL TUNNEL RELEASE. HX: No complaints, fever, chills, erythema, drainage or other evidence of infection. Sensation improved. PE: Wound excellent, clean, dry, no erythema, drainage or evidence of infection. Minimal, if any, swelling. Finger ROM is excellent. REC: Routine therapy/precau tions. The patient is not to use the hand for anything except therapy. WORK : No use of the hand. Impairment deferred. MMI 6 weeks. Return in 2 weeks. [email or web address] Not available 09/10/2015 13:11:48 09/25/2015 09/25/2015 Diagnoses: Right Carpal tunnel release5 weeks HISTORY: The patient has been doing very well and is very pleased with the result. Sensation, strength and function are greatly improved. There are no specific or significant complaints or functional limitations. EXAM: The wound is excellent. Soft, nontender, mature. Minimal pillar tenderness. Excellent strength of the intrinsic and extrinsic muscles. PLAN: Resume regular activity. WORK RESTRICTIONS: T he patient may return to work without restriction. MMI has been reached. Impairment is zero. Return as needed. [email or web address] Not available 09/25/2015 14:13:56 Plan of Treatment Reminders Order Date Submit Date Provider Last Modified By Organization Details Last Modified Time Details Appointments None recorded. Lab None recorded. Referral electromyog umm/nerve conduction referral - EMG left UE 2014 015 [email or web address] Not available 5 13:32:17 Procedures None recorded. Surgeries carpal tunnel release (SURG) 2014 015 [email or web address] [facility] ([facility] [address], [place], [address], 5 13:05:52 Imaging None recorded. Medication Orders Medrol (Fritz) 4 mg tablets in a dose pack 2015 016 [email or web address] Ale [facility] ([facility]), [address], [place], [address], 6 08:26:51 Patient TargetsNo targets recorded. Patient Instructions Encounter Date Encounter Id Patient Instructions Last Modified By Organization Details Last Modified Time 07/22/2015 [id number] carpal tunnel syndrome: care instructions [email or web address] Not available 07/23/2015 08:13:10 carpal tunnel syndrome: exercises thomasy Not available 07/23/2015 08:13:10 08/12/2015 [id number] carpal tunnel syndrome: exercises thomasy Not available 08/12/2015 11:40:45 left carpal tunn el syndrome/unrelated evaluation during global postoperative period: Symptoms and exam support this diagnosis. She has not yet had nerve studies. She is having identical symptoms compared to those which she had on the right side prior to her right CTR. She is very pleased with that result. Work related/workers compensation issues: She states her symptoms began at least in November 2014. She states that this is documented in her previous physician's notes. If this is the case. I do believe this would also be work related. She previously worked at [employer] but has not worked since April. We have discussed options of conservative treatment injection and surgery. Together we have decided to proceed with left CTR. She understands the risk for direct injury to the nerve tendons and arteries. She understands that I cannot guarantee a similar results. Work restrictions: She can return to work without restriction until surgery. She can return to work one day after surgery with no use of her left hand. Impairment deferred, MMI 3 months [email or web address] Not available 08/12/2015 11:08:00 09/09/2015 [id number] carpal tunnel syndrome: care instructions [email or web address] Not available 09/11/2015 11:27:54 carpal tunnel syndrome: exercises [email or web address] Not available 09/11/2015 11:27:55 09/25/2015 [id number] carpal tunnel syndrome: care instructions [email or web address] Not available 09/25/2015 14:13:55 carpal tunnel syndrome: exercises rehakd Not available 09/25/2015 14:13:55 left carpal tunn el release August 20 weeks: Doing well, neurogenic symptoms resolved. Minimal pillar pain. Plan: Progress activity as tolerated Work Restrictions: She can return to work without restriction. She has reached MMI. Assignment of impairment rating: Impairment of the wrist/upper extremity is 0. WT impairment is 0. [email or web address] Not available 09/25/2015 14:13:56 12/09/2015 [id number] carpal tunnel syndrome: care instructions [email or web address] Not available 12/10/2015 11:43:04 carpal tunnel syndrome: exercises rehakd Not available 12/10/2015 11:43:04 returning sympto ms after right carpal tunnel release June 25/left carpal tunnel release August 17: She initially had excellent results. At that time she worked for [employer]. When I released her Ed September she began working for [employer]. She is not really having any nocturnal symptoms. She has absolutely no sign of infection or CRPS. Her exam is relatively unremarkable. She has good thenar strength and bulk. No acute findings. Plan: Steroid dose pack, oral NSAIDs, splints. Hopefully this will be self-limiting. Work Restrictions: She can continue to work without restriction. Splints optional. Impairment deferred, MMI 3 months rehakd Not available 12/10/2015 08:25:12 Reason for Referral Electromyogram/nerve Conduct ion Referral for Carpal tunnel syndrome EMG left UE Referring Physician: Wilian Bryan, Orthopedic Surgery, Encounter Date: 08/12/2015 Results Created Date Observation Date Name Description Value Unit Range Abnormal Flag Note LastModifiedBy Organization Detail LastModifiedTime 08/13/20 15 elect romyo gram/ nerve condu ction study No observ ation record ed. [place] Not Available 2014 08:48:16 Result Notes None recorded. Problems Name Problem SNOMED Code Status Onset Date Resolution Date Notes Provider Name and Address Organization Details Recorded Time Pain of wrist region 20245993 Active Wilian Bryan MD [address] [place], [address] , [facility], 5 09:31:03 Carpal tunnel syndrome 51232069 Active Wilian Bryan MD [address] [place], [address] , [facility], 6 08:26:51 Problem Notes None recorded. Procedures Surgical History Date Name Laterality Status Provider Name and Address Organization Details Recorded Time 015 CARPAL TUNNEL RELEASE (SURG) completed [facility]2015 11:11:00 015 CARPAL TUNNEL RELEASE (SURG) completed Not Available [facility] 07/22/2015 15:04:09 015 INJECT CARPAL TUNNEL Methylprednisolone acetate 40mg completed Wilian Bryan MD [address] [place], [address], [facility], 12/27/2014 14:36:33 006 completed Ryann watkins [facility], 12/27/2014 13:35:33 005 General Surgery completed Ryann watkins [facility], 12/27/2014 13:35:33 991 completed Ryann watkins [facility], 12/27/2014 13:35:33 985 completed Ryann watkins [facility], 12/27/2014 13:35:33 General Surgery completed Bailey Davis [facility], 12/09/2015 15:31:43 Hysterectomy completed Bailey Davis [facility], 12/09/2015 15:31:43 Prior Orthopaedic Surgery completed Bailey Davis [facility], 12/09/2015 15:31:43 Cholecystectomy completed Bailey Davis [facility], 12/09/2015 15:31:43 Imaging Results None recorded. Procedure Notes None recorded. Medical Equipment None Reported. Allergies Allergen ID Allergen Name Allergen Category Reaction Reaction Severity Criticality Documentation Date Start Date Code Code System Note Provider Name and Address Organization Details Recorded Time 926945 Demerol medicatio n rash Not available Not available 12/27/2014 18004 1 RxNorm Ryann kang [facility], 5 13:24:00 Medications Name Sig Start Date Stop Date Status Note LastModified by Organization Details LastModified Time albuterol sulfate 0.63 mg/3 mL solution for nebulization Inhale by inhalation route. active Not Available Not Available No t Available Medrol (Fritz) 4 mg tablets in a dose pack 6 day dose pack take by oral route as directed. 2015 active Not Available Not Available Not Avai lable Durham 5 mg-325 mg tablet Take 1 tablet every 6 hours by oral route. 2014 active Pt given Rx at surg. 08/20 Not Available Not Available Not Available clonidine active Not Available Not Yesenia ilable Not Available omeprazole active Not Available Not Av ailable Not Available Fish Oil active Not Available Not Avai lable Not Available diclofenac sodium active Not Available Not Available Not Available furosemide active Not Available Not Av ailable Not Available potassium active Not Available Not Yesenia ilable Not Available Vitals Date Recorded Body mass index (BMI) Heart rate Body height Body weight Respiratory rate Systolic blood pressure Diastolic blood pressure Provider Name and Address Organization Details Last Updated DateTime 6 38 kg/m2 85 /min 171.45 cm 268618. 77009 g 18 /min 121 mm[Hg] 81 mm[Hg] Bailey Davis [facility], 6 15:30:14 Social History Question Answer Notes LastModified by Organizat ion Details LastModified Time Tobacco Smoking Status Former Smoker Ryann kang [facility], 12/27/2014 13:35:32 Do You Have An Advance Directive? No Information not available 12/27/2014 How Many Years Have You Consumed Alcohol? 10 Information not available 12/27/2014 Are You Blind Or Do You Have Difficulty Seeing? No Information not available 12/27/2014 Is Blood Transfusion Acceptable In An Emergency? Yes Information not available 12/27/2014 How Much Tobacco Do You Chew? None Information not available 12/27/2014 Are You Deaf Or Do You Have Serious Difficulty Hearing? No Information not available 12/27/2014 Which Illicit Or Recreational Drugs Have You Used? 0 Information not available 12/27/2014 Have You Directly Handled Bats, Rodents, Or Primates From Ebola Endemic Areas? No Information not available 12/27/2014 Have You Processed Blood Or Body Fluids From An Ebola Virus Disease Patient Without Appropriate PPE? No Information not available 12/27/2014 Have You Had Household Contact With An Ebola Virus Disease Patient? No Information not available 12/27/2014 Have You Had Direct Contact With A Body In An Ebola-affected Area Without Appropriate PPE? No Information not available 12/27/2014 Have You Had Percutaneous (e.g. Needle Stick) Or Mucous Membrane Exposure To Blood Or Body Fluids From An Ebola Virus Disease Patient? No Information not available 12/27/2014 Have You Had Other Close Contact With An Ebola Virus Disease Patient In Health Care Facilities Or Community Settings? No Information not available 12/27/2014 Have You Had Contact With Blood, Bodily Fluids, Or Human Remains Of A Patient Known To Have Or Suspected To Have Ebola Virus Disease? No Information not available 12/27/2014 Do You Reside In Or Have You Traveled To An Area Where Ebola Virus Transmission Is Active? No Information not available 12/27/2014 Who Is Your Employer? [employer] Information not available 12/27/2014 Which Of Your Hands Is Dominant? Right Information not available 12/27/2014 Single Or Multi-level Home/work? Single Level Home Information not available 12/27/2014 How Many Years Have You Used Illicit Or Recreational Drugs? 0 Information not available 12/27/2014 Live Alone Or With Others? Alone Information not available 12/27/2014 Ethnic Identity Inform ation not available 12/27/2014 Diet Type Regular Information not available 12/27/2014 Education Level College Currently Inform ation not available 12/27/2014 Current Resident Of Detention Or Rehab Facility No [email or web address] Information not available 12/09/2015 If Yes, Name And Phone Number Of Facility No [email or web address] Information not available 12/09/2015 Marital Status Informa tion not available 12/27/2014 How Many Children Do You Have? 3 Information not available 12/27/2014 At What Age Did You Start Smoking Tobacco? 18 Information not available 12/27/2014 How Much Tobacco Do You Smoke? 1.5 PPD Information not available 12/27/2014 What Types Of Sporting Activities Do You Participate In? None Information not available 12/27/2014 General Stress Level Low Information not available 12/27/2014 How Many Years Have You Smoked Tobacco? 25 Information not available 12/27/2014 Do You Have Difficulty Walking Or Climbing Stairs? No Information not available 12/27/2014 Sex: Unknown Functional Status Question Answer Note LastModified by Organizat ion Details LastModified Time What is your level of alcohol consumption? Occasional Information not available 12/27/2014 Are you currently employed? Yes Information not available 12/27/2014 Do you have difficulty doing errands alone? No Information not available 12/27/2014 Are you able to care for yourself? 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 Yes Information not available 12/27/2014 What is your exercise level? Occasional Information not available 12/27/2014 Mental Status Question Answer Note LastModified by Organization D etails LastModified Time Do you have difficulty concentrating, remembering or making decisions? No Information no t available 12/27/2014 Family History Relationship Description Onset Age of this Age Resolved Age Notes LastModified by Organization Details LastModified Time Maternal Grandmother Malignant neoplastic disease Deceas ed Not available 12/09/2015 15:31:03 Mother Diabetes mellitus Living Not available 2015 15:31:03 Sister Problem Heart Abnorm ality; Living [email or web address] Not available 12/09/2015 15:31:03 Notes:...Updated on 12/09/15 by ADS... Medical History Condition Response Pancreatitis N HEME - Anemia N Gout N Hyperthyroidism N Rheumatoid arthritis N Irritable bowel syndrome N Osteoarthrosis N HEENT - Wears corrective lenses N COPD N Depression N Pneumonia N Peptic ulcer disease N History of head and neck tumor N NEURO - Cerebral palsy N Skin infection N Active aids N Mitral valve prolapse N Renal failure N HIV positive N GI - GERD N Joint injury N Hypercholesterolemia Y Hypoparathyroidism N MS - Fracture N Cerebrovascular accident N Fibromyalgia N PSYCHE - Claustrophobia N Neuromuscular disease N Poliomyelitis / post polio N ENDOCRINE - Obesity N Hearing impairment N Dysvascular amputation LE N Other diagnosis Y Anxiety disorder N Deformity N CHEST - Sleep apnea Y Crohn's disease N Pulmonary embolism N Chronic venous stasis disease N Psychosis N Coagulopathy N Cardiac valvular disease N Asthma Y Blood clotting disorder N Are you under pain mgmt treatment N Fragility fracture N Vertigo N Hepatitis N Neuropathy N Coronary artery disease N Pressure sore N Diabetes Type II (NIDDM) N Skin ulceration N Bipolar disorder N Glaucoma N Legally blind N Hypothyroidism N Sinusitis / sinus infection N Pacemaker N Peripheral vascular disease N Cystic fibrosis N Cholecystitis N Sickle cell N VASCULAR - Deep venous thrombosis N Osteomyelitis N SKIN - Rash N INFECTIOUS - Current active infection N Heart murmur N Previous myocadial infarction N Itp / ttp N Congestive heart failure N Lupus Arthritis N Skin bruising N HEART - Arrhythmia N Diabetes Type I (IDDM) N Chemically anticoagulated N Dental caries / gingivitis N Fracture non-union N Dysvascular gangrene N - Cystitis N Renal dialysis N Diverticulitis N Dementia N Ulcerative colitis N Seizure disorder N MISC - Cancer N Organ transplant N Hypertension N Osteoporosis Y Gynecological History Statement/Question Response Number miscarriages 1 Period status Menopause due to hys terectomy Periods regular Not applicable LMP Interval Not applicable Contraception method None Age at Menarche 13 Number times 4 Number deliveries 3 Obstetrics History GPAL:G 0 P 0 0 0 0 Past Encounters Encounter ID Performer Location Encounter Start Date Encounter Closed Date Diagnosis/Indication Diagnosis SNOMED-CT Code Diagnosis ICD10 Code Diagnosis Note [id number] Wilian Bryan MD Main Office - [address] [address] 12/27/2014 13:16:33 12/27/2014 15:10:24 Pain of wrist region 23827387 Carpal sonja griselda syndrome [id number] Wilian Bryan MD Main Office - [address] [address] 06/05/2015 08:26:49 06/05/2015 10:16:27 Carpal tunnel syndrome 81562736 [id number] Wilian Bryan MD Main Office - [address] [address] 07/08/2015 10:04:09 07/08/2015 11:17:28 Carpal tunnel syndrome 82818178 G56.01 G56.00 [id number] Wilian Bryan MD Main Office - [facility] [address] [place] [phone] 07/22/2015 09:12:54 07/22/2015 10:32:33 Carpal tunnel syndrome 70222430 G56.01 [id number] Wilian Bryan MD Main Office - [facility] [address] [place] [phone] 08/12/2015 09:56:38 08/12/2015 12:17:03 Carpal tunnel syndrome 07282764 G56.01 [id number] Wilian Bryan MD Main Office - [facility] [address] [place] [phone] 09/09/2015 14:15:12 09/09/2015 15:07:22 Carpal tunnel syndrome 23395324 G56.02 [id number] Wilian Bryan MD Main Office - [facility] [address] [place] [phone] 09/25/2015 07:47:56 09/25/2015 08:22:54 Carpal tunnel syndrome 37362813 G56.02 [id number] Wilian Bryan MD Main Office - [facility] [address] [place] [phone] 12/09/2015 15:22:08 12/09/2015 16:33:45 Carpal tunnel syndrome 16510216 G56.02 G56.01 Health Concerns Section Related Observation LastModified by Organization Detai ls LastModified Time None Recorded Concern Status LastModified by Organization Details LastModified Time None Recorded Advance Directives Directive N: Payers Insurance Date Sequence Insurance Name Policy Number Policy Dupree Covered Member ID Dupree Member ID Guarantor Name 11/10/2015 1 [employer] - [facility] [id number] [facility] [id number] [facility] 11/10/2015 1 SELF INSURED PLANS [id number] [facility] [id number] [facility] 11/10/2015 1 SELF INSURED PLANS - [facility] [id number] Alberto Sullivanlaurie [id number] Alberto eWst 12/25/2015 [facility] [employer] [id number] Notes Date Note Type Note Provider Name and Address Organization Details Recorded Time 07/22/2015 text/html Patient states s he feels her right hand is healing well after carpal tunnel release performed 06/25/15, however, she does describe continued pain in the carpal tunnel region. She states neurogenic symptoms have significantly improved. Wilian Bryan MD [address] [place], [address], [facility], 07/22/2015 16:23:53 08/12/2015 text/html HPI None recorded. Ashanti kang [place] - [facility] 08/13/2015 08:08:55 09/09/2015 text/html Patient states s he is having some occassional 'shooting' pain. 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 Lizzy kang [facility], 09/10/2015 13:11:49 09/25/2015 text/html HPI None recorded. Wilian Bryan MD [address] [place], [address], [facility] 09/25/2015 14:14:20 12/09/2015 text/html Patient states s he has had returned numbness in bilateral hands, R>L, 2 weeks duration. Wilian Bryan MD [address] [place], [address], [facility] 12/10/2015 08:26:58 OBGyn Episode No OBEpisode recorded.
--- OUTSIDE RECORDS SUMMARY | 2025-03-12 18:02 | XMS_ITS | Clinical Summary ---
Author Organization [facility] Address [address] [place] [address] Care Team Providers Care District Manager Name Role Phone Unavailable Primary Care Provider Unavailabl e Source Comments [facility],non-owned Affiliates and Associated Physician Practices is amultiple site organization consisting of ambulatory clinics and hospital sitesin [place], [place], [place] and [place]. This disclosure is being madepursuant to the Care Everywhere program and may not contain all information available regarding this patient. Last updated 18.[facility] Allergies Active Allergy Reactions Criticality Noted Date Comments Meperidine Rash Medium 11/18/2019 Medications * Be aware that medications may not be up to date on this document. Alwaysverify current medications with the patient. 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 Gender Identity Not on file Sexual Orientation Not on file Last Filed Vital Signs Vital Sign Reading Time Taken Comments Blood Pressure 126/84 11/18/2019 3:16 PM NEUROSURGICAL NURSE PRACTITIONER Pulse 90 11/18/2019 3:16 PM NEUROSURGICAL NURSE PRACTITIONER Temperature 36.7 C (98 F) 11/18/2019 3:16 PM NEUROSURGICAL NURSE PRACTITIONER Respiratory Rate 20 11/18/2019 3:16 PM NEUROSURGICAL NURSE PRACTITIONER Oxygen Saturation 97% 11/18/2019 3:16 PM NEUROSURGICAL NURSE PRACTITIONER Inhaled Oxygen Concentration - - Weight 113.4 kg (250 lb) 11/18/2019 3:16 PM NEUROSURGICAL NURSE PRACTITIONER Height 170.2 cm (5' 7) 11/18/2019 3:16 PM NEUROSURGICAL NURSE PRACTITIONER Body Mass Index 39.16 11/18/2019 3:16 PM NEUROSURGICAL NURSE PRACTITIONER Plan of Treatment Health Maintenance Due Date Last Done Comments COLOGUARD (AGES 45-75) - COL ON CA SCREENING 1966 COLON MONITORING 1966 COLONOSCOPY - COLON CA SCREENING 1966 CT COLONOGRAPHY - COLON CA SCREENING 1966 Colorectal Cancer Screening 1966 FIT - COLON CA SCREENING 1966 FLEX SIG - COLON CA SCREENING 1966 LIPID TESTING 1966 MAMMOGRAM 1966 HIV SCREENING 1981 HEPATITIS C SCREENING 04/27/1984 DTAP/TDAP/TD VACCINES (1 - Tdap) 1985 HEPATITIS B VACCINE (1 of 3 - 19+ 3-dose series) 1985 PNEUMOCOCCAL VACCINE 50+ (1 of 1 - PCV) 2016 ZOSTER VACCINE (1 of 2) 2016 SCREENING FOR DIABETES 04/01/2022 9, 04/01/2019 COVID-19 VACCINE (1 - 2023-2 5 season) 2024 DEPRESSION SCREENING 09/13/2024 INFLUENZA VACCINE (Season Ended) 2025 HIB VACCINE Aged Out No longer eligi ble based on patient's age to complete this topic HPV VACCINE Aged Out No longer eligi ble based on patient's age to complete this topic MENINGOCOCCAL (Group B) VACCINE SHARED DECISION-MAKING Aged Out No longer eligible based on patient's age to complete this topic MENINGOCOCCAL GROUPS A/C/Y/W VACCINE Aged Out No longer eligible b ased on patient's age to complete this topic Insurance
--- OUTSIDE RECORDS SUMMARY | 2025-03-12 18:02 | XMS_ITS | Referral Summary ---
Author Organization [address] Address [address] [place] [address] [place] [address] Care Team Providers Care Glass Wool Blanket Machine Feeder Name Role Phone Janey Sotelo CLINICAL CYTOPATHOLOGIST Unavailable [phone] Dillon Madrid MD Primary Care Prov ider Encounters Date Type Department Care Team Description 01/09/2025 8:40 AM CDT Office Visit [facility] Orthopaedic Surgery [address] [place] [address] 2nd [address] [place] [address] Gumaro Craft MD Rupture of flexor tendon of wrist (Primary Dx) 12/21/2024 8:15 AM CDT - 12/21/2024 9:30 AM CDT Surgery [facility] [address] [place] [address] Gumaro Craft MD LEFT FLEXOR CARPI RADIALIS EXCISION AND DEBRIDEMENT 12/21/2024 8:03 AM CDT Anesthesia Event [facility] [address] [place] [address] Db Padilla MD McGowan, Jessica Lynn, NICK 12/21/2024 6:03 AM CDT - 12/21/2024 9:45 AM CDT Hospital Encounter [facility] [address] [place] [address] Gumaro Craft MD Rupture of flexor tendon of wrist (Primary Dx) Discharge Disposition: Discharge to home or self care 12/20/2024 Orders Only [facility] Orthopaedic Surgery [address] [place] [address] Gumaro Craft MD Post-op pain (Primary Dx) from Last 3 Months Allergies Active Allergy Reactions Criticality Noted Date Comments Meperidine Rash Medium 04/01/[address] (VOLTAREN) 75 mg EC tabletIndications: Pain Take 1 tablet (75 mg total) by mouth 2 (two) times a day 06/11/20 22 Active estradioL (ESTRACE) 2 mg tabletIndications: hormone replacement Take 1 tablet (2 mg total) by mouth every morning 06/01/20 22 Active Wegovy 2.4 mg/0.75 mL auto-injectorIndic ations:Weight Loss Management for Obese Patient (BMI >= 30) Inject 2.4 mg under the skin every 7 days Tuesdays06/04/20 22 Active zolpidem (AMBIEN) 10 mg tablet Take 1 tablet (10 mg total) by mouth nightly as needed for sleep at bedtime. 06/01/[address] (PROTONIX) 40 mg EC tabletIndications: Treatment of Non-Bleeding Gastric Disorder Take 1 tablet (40 mg total) by mouth every morning 12/01/19 23 Active nitroglycerin (NITROSTAT) 0.[address] 1 tablet (0.4 mg total) under the tongue every 5 (five) minutes as needed for chest pain 90 tablet 06/20/20 24 025 Active Additional Information Patient taking differently:0.4 mg sublingual Every 5 min PRN, chest pain,Indications: acute episode of anginal pain, Informant: Self, Reported on 12/21/2024 atorvastatin (LIPITOR) 20 mg tabletIndications: hyperlipidemia Take 1 tablet (20 mg total) by mouth every morning 06/20/20 24 Active ACAI ALVAREZ EXTRACT ORALIndications:shultz pplement Take 2 tablets by mouth every morning Active cyanocobalamin, vitamin B-12, (VITAMIN B-12 ORAL)Indications:s upplement Take 1 tablet by mouth every morning Active POTASSIUM ORALIndications:shultz pplement Take 1 tablet by mouth every morning Active MAGNESIUM ORALIndications:shultz pplement Take 1 tablet by mouth every morning Active C/sourcherry/celer y/grape seed (TART FORREST ORAL)Indications:s upplement Take 1 tablet by mouth every morning Active flaxseed oiL 1,000 mg capsuleIndications :supplement Take 1 capsule (1,000 mg total) by mouth every morning Active acetaminophen (TYLENOL) 500 mg tabletIndications: Postoperative Acute Pain Take 1 tablet (500 mg total) by mouth every 6 (six) hours as needed for pain while awake 60 tablet 12/22/19 25 Active ibuprofen (ADVIL,MOTRIN) 600 mg tabletIndications: Postoperative Acute Pain Take 1 tablet (600 mg total) by mouth every 6 (six) hours as needed for pain while awake 60 tablet 12/22/19 25 Active oxyCODONE (ROXICODONE) 5 mg immediate release tabletIndications: Pain Take 1 tablet (5 mg total) by mouth every 6 (six) hours as needed for pain 10 tablet 12/22/19 25 Active docusate sodium (COLACE) 100 mg capsuleIndications :constipation Take 1 capsule (100 mg total) by mouth every 6 (six) hours as needed for constipation 20 capsule 12/22/19 25 Active ondansetron ODT (ZOFRAN-ODT) 4 mg disintegrating tabletIndications: Prevention of Post-Operative Nausea and Vomiting Take 1 tablet (4 mg total) by mouth every 8 (eight) hours as needed for nausea or vomiting 20 tablet 12/22/19 25 Active cholecalciferol (VITAMIN D-3) 25 mcg (1,000 unit) tabletIndications: Vitamin D Deficiency Take 1 tablet (1,000 Units total) by mouth daily 30 tablet 12/22/19 25 Active multivitamin tabletIndications: Vitamin Deficiency Prevention Take 1 tablet by mouth daily 30 tablet 12/22/19 25 Active Active Problems Problem Noted Date Diagnosed Date Nontraumatic rupture of exte nsor tendons of left hand and wrist 12/06/2024 Rupture of flexor tendon of wrist 12/06/2024 Acute chest pain 06/18/2024 Carpal tunnel syndrome 09/10/2023 Pain in wrist 09/10/2023 Sepsis 09/10/2023 Immunizations Immunization Administration Dates Next Due Influenza, Trivalent, Preservative Free, Intramu scular 06/20/2024 Social History Tobacco Use Types Packs/Day Years Used Date Smoking Tobacco: Former Cigarettes 1.5 43.5 S tarted: 09/1981 Smokeless Tobacco: Never Tobacco Cessation:Counseling Given: Not Answered AUDIT-C Answer Date Recorded Q1: How often do you have a drink containing alc ohol? 2-4 times a month 12/21/2024 Q2: How many drinks containi ng alcohol do you have on a typical day when you are drinking? 1 or 2 12/21/2024 Q3: How often do you have si x or more drinks on one occasion? Less than monthly 12/21/2024 Personal Safety Answer Date Recorded Have you ever been in or are you currently in a harmful physical or emotional relationship or is someone making you feel afraid or unsafe? 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 Gender Identity Female 06/19/2022 4:37 PM CDT Sexual Orientation Not on file Last Filed Vital Signs Vital Sign Reading Time Taken Comments Blood Pressure 123/69 12/21/2024 9:15 AM CDT Pulse 74 12/21/2024 9:25 AM CDT Temperature 37 C (98.6 F) 12/21/2024 8:46 AM CDT Respiratory Rate 16 12/21/2024 9:25 AM CDT Oxygen Saturation 94% 12/21/2024 9:25 AM CDT Inhaled Oxygen Concentration - - Weight 101.6 kg (224 lb) 12/21/2024 6:39 AM CDT Height 170.2 cm (5' 7) 12/21/2024 6:39 AM CDT Body Mass Index 35.08 12/21/2024 6:39 AM CDT Plan of Treatment Not on file Medical Devices Implanted Type Area Certified Anesthesiologist Assistant Device Identifier Shelf Expiration Date Model / Serial / Lot Titanium Right: Hip Description:Titanium Right h op. Metal implant L big toe Procedures Procedure Name Priority Date/Time Associated Diagnosis Comments UT AN PROCEDURE PLACEHOLDER Routine 12/21/2024 8:37 AM CDT UT AN ELECTIVE ENDOTRACHEAL AIRWAY Routine 12/21/2024 8:37 AM CDT DEBRIDEMENT - HAND 12/21/2024 8: 05 AM CDT Nontraumatic rupture of extensor tendons of left hand and wrist Case Notes 12/08@1145: [facility] email to Amy. [place] Special Needs Pt takes WEYGOVY - for wt loss UT AN PROCEDURE PLACEHOLDER Routine 12/21/2024 7:42 AM CDT POCT PREOP SCREEN ([id number] BG-HCT) Routine 12/21/2024 7:08 AM CDT from Last 3 Months Results * UT AN ELECTIVE ENDOTRACHEAL AIRWAY, UT AN PROCEDURE PLACEHOLDER (12/21/2024 8:37 AM CDT) Halima Paulson CRNA - 12/21/2024 8:37 AM CDT Halima Santa CRNA 12/21/2024 8:37 AM Airway Patient location: OR Urgency: elective Indications for airway management: anesthesia Difficult airway: no Staff: Placed by: FRUIT FARMER: Halima Santa CRNA Airway prep: Preoxygenated: yes Patient position: sniffing Mask difficulty assessment: 0 - not attempted Spontaneous ventilation during airway: absent Sedation level during airway: GA Final airway details: Final airway type: endotracheal airway Tube type: ETT ETT size: 7.0 mm Cuffed: yes Technique used for successful ETT placement: video laryngoscopy Devices/Methods used in placement: stylet Insertion site: oral Video blade type: Jeffery Blade size: 3 Cormack-Lehane (video): grade I - full view of glottis Cuff inflated with: air ETT to lips: 21 cm Placement verified by: auscultation and CO2 detection Airway secured with: silk tape Number of attempts: 1no us Db Padilla MD ANESTHESIA ORDERABLES Final Result * UT AN PROCEDURE PLACEHOLDER (12/21/2024 7:42 AM CDT) Db Grove MD - 12/21/2024 7:42 AM CDT Db Padilla MD 12/21/2024 7:42 AM Peripheral Block Patient location during procedure: pre-op holding Reason for block: post-op pain management per surgeon request Ultrasound image in chart or stored: yes Block type: single shot Laterality: left Block type: brachial - supraclavicular Procedure prep: Preprocedure checklist: patient identified, procedure contraindications assessed, site marked, procedure consent, surgical consent, IV checked, risks, benefits and alternatives discussed, monitors and equipment checked and timeout performed Patient position: sitting and head of bed elevated Procedure performed while patient: sedate with meaningful contact Monitoring: oximetry Supplemental O2: nasal cannula Prep solution: chlorhexidine/alcohol Skin infiltrated with lidocaine 1%: yes Peripheral nerve block: Technique: ultrasound guided Needle type: short-bevel and echogenic Needle gauge: 21 G Needle length: 100 mm Injection assessment: injection made incrementally with constant monitoring, local visualized surrounding nerve on ultrasound, negative aspiration for heme, no paresthesias noted, normal resistance to injection and see flowsheet for medication details Assessment: Block success: full evaluation pending Events: patient tolerated procedure well with no complications us Db Padilla MD ANESTHESIA ORDERABLES Final Result * POCT Preop screen ([id number]-[id number]-Ch-Esp-Hct) (12/21/2024 7:08 AM CDT) Pathologist [facility] K POC 3.8 3.3 - 4.9 mmol/L Comment: Interpretive Data This method is not able to assess for hemolysis, which may falsely increase potassium concentrations. If further testing is needed to evaluate this result, consider in-laboratory plasma potassium. Current Interpretive Data was last revised on 2022. Glucose, fasting, POC 88 70 - 99 mg/dL [facility] Blood 12/21/2024 7:08 AM CDT 12/21/2024 7:08 AM CDT Gumaro Craft MD LAB POCT ORDERABLES - DEVICE Final Result [facility] [place] [address] from Last 3 Months [place] For more information, please contact: [phone] * Full Code (Latest Code Status on File) Date Activated Date Inactivated Comments 06/19/2024 7:10 PM 06/20/2024 5:20 PM Care Teams Glass Wool Blanket Machine Feeder Relationship Specialty Start Date End Date Dillon Madrid MD [address] [place] [address] PCP - General Family Medicine 06/18/24 Janey Sotelo CLINICAL CYTOPATHOLOGIST [address] [place] [address] Referring Physician Otolaryngology 06/23/22
--- OUTSIDE RECORDS SUMMARY | 2025-03-12 18:02 | XMS_ITS | Clinical Summary ---
Author Organization [address] Address [address] [place] [address] TATIANA Bull [address] Care Team Providers Care Coal Yard Supervisor Name Role Phone Janey Sotelo QUALITY ASSURANCE PROJECT MANAGER Unavailable [phone] Dillon Madrid MD Primary Care Prov ider [...] 09/10/2023 Pain in wrist 09/10/2023 Sepsis 09/10/2023 Encounters Date Type Department Care Team Description 01/09/2025 8:40 AM CDT Office Visit [facility] Orthopaedic Surgery [address] [place] [address] 2nd Floor [address] [place] [phone] Gumaro Craft MD Rupture of flexor tendon of wrist (Primary Dx) 12/21/2024 8:15 AM CDT - 12/21/2024 9:30 AM CDT Surgery [facility] [address] [place] [id number] Gumaro Craft MD LEFT FLEXOR CARPI RADIALIS EXCISION AND DEBRIDEMENT 12/21/2024 8:03 AM CDT Anesthesia Event [facility] [address] [place] [address] Db Padilla MD McGowan, Jessica Lynn, NP 12/21/2024 6:03 AM CDT - 12/21/2024 9:45 AM CDT Hospital Encounter [facility] [address] [place] [address] Gumaro Craft MD Rupture of flexor tendon of wrist (Primary Dx) Discharge Disposition: Discharge to home or self care 12/20/2024 Orders Only [facility] Orthopaedic Surgery [address] [place] [address] 2nd [address] [place] [address] Gumaro Craft MD Post-op pain (Primary Dx) from Last 3 Months Immunizations Immunization Administration Dates Next Due Influenza, Trivalent, Preservative Free, Intramu scular 06/20/2024 Surgical History Surgery Date Site/Laterality Comments CARPAL TUNNEL RELEASE 09/13/2014 - 09/12/2015 Bilateral TOE SURGERY 09/13/2022 - 09/12/2023 Left great toe HIP ARTHROSCOPY 09/13/2016 - 09/12/2017 Right CHOLECYSTECTOMY SECTION x3 PARTIAL HYSTERECTOMY UTERINE FIBROID SURGERY BLADDER SUSPENSION COLONOSCOPY x3 GANGLION CYST EXCISION x2 Medical History Medical History Date Comments Asthma GERD (gastroesophageal reflux disease) Headache 11/2018 HL (hearing loss) Sleep apnea Migraine 11/2018 Ear problems Family History Medical History Relation Name Comments Asthma Maternal Grandmother Mecca Mcleod Cancer Maternal Grandmother Mecca Mcleod Osteoarthritis Mother Raeann Card Sleep apnea Mother Raeann Card Snoring Mother Raeann Card Anesthesia problems Neg Hx Relation Name Status Comments Maternal Grandmother Mecca [...] on file Legal Sex Female 5:31 AM ENGRAVER TENDER Gender Identity Female 06/19/2022 4:37 PM CDT [...] 12/21/2024 6:39 AM CDT Plan of Treatment Health Maintenance Due [...] on patient's age to complete this topic Medical Devices Implanted Type Area Perianesthesia Rn Device Identifier Shelf Expiration Date Model / Serial / Lot Titanium Right: Hip Description:Titanium Right h op. Metal implant L big toe Procedures Procedure Name Priority Date/Time Associated Diagnosis Comments [place] AN PROCEDURE PLACEHOLDER Routine 12/21/2024 8:37 AM CDT [place] AN ELECTIVE ENDOTRACHEAL AIRWAY Routine 12/21/2024 8:37 AM CDT DEBRIDEMENT - HAND 12/21/2024 8: 05 AM CDT Nontraumatic rupture of extensor tendons of left hand and wrist Case Notes 12/08@1145: [facility] email to Leighann. MARIELA Special Needs Pt takes WEYGOVY - for wt loss [place] AN PROCEDURE PLACEHOLDER Routine 12/21/2024 7:42 AM CDT POCT PREOP SCREEN ([id number] BG-HCT) Routine 12/21/2024 7:08 AM CDT from Last 3 Months Results * MN AN ELECTIVE ENDOTRACHEAL AIRWAY, [place] AN PROCEDURE PLACEHOLDER (12/21/2024 8:37 AM CDT) Halima Paulson CRNA - 12/21/2024 8:37 AM CDT Halima Santa CRNA 12/21/2024 8:37 AM Airway Patient location: OR Urgency: elective Indications for airway management: anesthesia Difficult airway: no Staff: Placed by: MARIBEL: Halima Santa CRNA Airway prep: Preoxygenated: yes [...] with: silk tape Number of attempts: 1no Db Padilla MD ANESTHESIA ORDERABLES Final Result * [place] AN PROCEDURE PLACEHOLDER (12/21/2024 7:42 AM CDT) [...] patient tolerated procedure well with no complications Db Padilla MD ANESTHESIA ORDERABLES Final Result * POCT Preop screen ([id number]-TQA-Dm-Vct-Hct) (12/21/2024 7:08 AM CDT) K POC 3.8 3.3 - 4.9 mmol/L Comment: Interpretive Data This method is not able to assess for hemolysis, which may falsely increase potassium concentrations. If further testing is needed to evaluate this result, consider in-laboratory plasma potassium. Current Interpretive Data was last revised on 2022. Glucose, fasting, POC 88 70 - 99 mg/dL [facility] Blood 12/21/2024 7:08 AM CDT 12/21/2024 7:08 AM CDT Gumaro Craft MD LAB POCT ORDERABLES - DEVICE Final Result [facility] [place] [address] from Last [address] [facility] Advance Directives For more information, please contact: [phone] * Full Code (Latest Code Status on File) Date Activated Date Inactivated Comments 06/19/2024 7:10 PM 06/20/2024 5:20 PM Care Teams Coal Yard Supervisor Relationship Specialty Start Date End Date Dillon Madrid MD [address] [place] [address] PCP - General Family Medicine 06/18/24 Janey Sotelo NP [facility] [place] [address] Referring Physician Otolaryngology 06/23/22
[2025-03-12 19:22] VITALS: BP 135/79; PULSE 80; RESP 16; TEMP 36.7; O2SAT 97
--- OUTSIDE RECORDS SUMMARY | 2025-03-12 20:21 | XMS_ITS | Encounter Summary ---
Author Organization [employer] Address [address] [place] [address] Care Team Providers Care Pit Worker Power Shovel Name Role Phone Unavailable Primary Care Provider Unavailabl e Encounter Details Date Type Department Care Team (Latest Contact Info) Description 03/31/1999 Outpatient Historical [facility] Ed Schaffer MD [address] [place] [address] Ganglion of tendon sheath (Primary Dx) Social History Tobacco Use Types Packs/Day Years Used Date Smoking Tobacco: Never Assessed Comments Unknown Sex and Gender Information Value Date Recorded Sex Assigned at Not on file Legal Sex Female 4:18 AM SHOE STAMPER Gender Identity Not on file Sexual Orientation Not on file documented as of this encounter Plan of Treatment Not on file documented as of this encounter Visit Diagnoses Diagnosis Ganglion of tendon sheath- Primary documented in this encounter
--- OUTSIDE RECORDS SUMMARY | 2025-03-12 20:21 | XMS_ITS | Referral Summary ---
Author Organization [address] Address [address] [place] [address] [place] [address] Care Team Providers Care Schedule Maker Name Role Phone Janey Sotelo TOOL DESIGN DRAFTER Unavailable [phone] Dillon Madrid MD Primary Care Prov ider Encounters Date Type Department Care Team Description 01/09/2025 8:40 AM CDT Office Visit [facility] [address] [place] [address] 2nd Floor [address] [place] [address] Gumaro Craft MD Rupture of flexor tendon of wrist (Primary Dx) 12/21/2024 8:15 AM CDT - 12/21/2024 9:30 AM CDT Surgery [facility] [address] [place] [address] Gumaro Craft MD LEFT FLEXOR CARPI RADIALIS EXCISION AND DEBRIDEMENT 12/21/2024 8:03 AM CDT Anesthesia Event [facility] [address] [place] [address] Db Padilla MD McGowan, Jessica Lynn, NICK 12/21/2024 6:03 AM CDT - 12/21/2024 9:45 AM CDT Hospital Encounter [facility] [address] [place] [address] Gumaro Craft MD Rupture of flexor tendon of wrist (Primary Dx) Discharge Disposition: Discharge to home or self care 12/20/2024 Orders Only [facility] [address] [facility] 2nd Floor [address] [place] [address] Gumaro Craft MD Post-op pain [...] on file Legal Sex Female 5:31 AM FLAT SORTER PROCESSOR Gender Identity Female 06/19/2022 4:37 PM CDT [...] on file Medical Devices Implanted Type Area Medical Anthropology Director Device Identifier Shelf Expiration Date Model / Serial / Lot Titanium Right: Hip Description:Titanium Right h op. Metal implant L big toe Procedures Procedure Name Priority Date/Time Associated Diagnosis Comments OK AN PROCEDURE PLACEHOLDER Routine 12/21/2024 8:37 AM CDT OK AN ELECTIVE ENDOTRACHEAL AIRWAY Routine 12/21/2024 8:37 AM CDT DEBRIDEMENT - HAND 12/21/2024 8: 05 AM CDT Nontraumatic rupture of extensor tendons of left hand and wrist Case Notes 12/08@[email or web address]: MISSING DPC email to Amy. [place] Special Needs Pt takes WEYGOVY - for wt loss OK AN PROCEDURE PLACEHOLDER Routine 12/21/2024 7:42 AM CDT POCT PREOP SCREEN ([id number]-HCT) Routine 12/21/2024 7:08 AM CDT from Last 3 Months Results * OK AN ELECTIVE ENDOTRACHEAL AIRWAY, OK AN PROCEDURE PLACEHOLDER (12/21/2024 8:37 AM CDT) Halima Paulson CRNA - 12/21/2024 8:37 AM CDT Halima Santa CRNA 12/21/2024 8:37 AM Airway Patient location: OR Urgency: elective Indications for airway management: anesthesia Difficult airway: no Staff: Placed by: HORIZONTAL BORING MILL SET UP OPERATOR: Halima Santa CRNA Airway prep: Preoxygenated: yes [...] Padilla MD ANESTHESIA ORDERABLES Final Result * OK AN PROCEDURE PLACEHOLDER (12/21/2024 7:42 AM CDT) [...] ORDERABLES Final Result * POCT Preop screen ([id number]-Svp-AYD-Is-Aqi-Hct) (12/21/2024 7:08 AM CDT) Pathologist [facility] K POC 3.8 3.3 - 4.9 mmol/L Comment: Interpretive Data This method is not able to assess for hemolysis, which may falsely increase potassium concentrations. If further testing is needed to evaluate this result, consider in-laboratory plasma potassium. Current Interpretive Data was last revised on 2022. Glucose, fasting, POC 88 70 - 99 mg/dL [facility] Blood 12/21/2024 7:08 AM CDT 12/21/2024 7:08 AM CDT Gumaro Craft MD LAB POCT ORDERABLES - DEVICE Final Result [facility] [place] [address] from Last 3 Months Insurance [employer] Advance Directives For more information, please contact: [phone] * Full Code (Latest Code Status on File) Date Activated Date Inactivated Comments 06/19/2024 7:10 PM 06/20/2024 5:20 PM Care Teams Schedule Maker Relationship Specialty Start Date End Date Dillon Madrid MD [address] [place] [address] PCP - General Family Medicine 06/18/24 Janey Sotelo TOOL DESIGN DRAFTER [address] [place] [address] Referring Physician Otolaryngology 06/23/22
--- OUTSIDE RECORDS SUMMARY | 2025-03-12 20:21 | XMS_ITS | Clinical Summary ---
Author Organization [address] Address [address] [place] [address] [place] Bull [address] Care Team Providers Care Contact Lens Blocker And Cutter Name Role Phone Janey Sotelo MECHANICAL SERVICE REPRESENTATIVE Unavailable [phone] Dillon Madrid MD Primary Care Prov ider [...] Description 01/09/2025 8:40 AM CDT Office Visit [facility] Orth[facility] Surgery [address] [place] [address] 2nd Floor [address] [place] [phone] Gumaro Craft MD Rupture of flexor tendon of wrist (Primary Dx) 12/21/2024 8:15 AM CDT - 12/21/2024 9:30 AM CDT Surgery [facility] [address] [place] [address] Gumaro Craft MD LEFT FLEXOR CARPI RADIALIS EXCISION AND DEBRIDEMENT 12/21/2024 8:03 AM CDT Anesthesia Event [facility] [address] [place] [address] Db Padilla MD McGowan, Jessica Lynn, NP 12/21/2024 6:03 AM CDT - 12/21/2024 9:45 AM CDT Hospital Encounter [facility] [address] [place] [address] Gumaro Craft MD Rupture of flexor tendon of wrist (Primary Dx) Discharge Disposition: Discharge to home or self care 12/20/2024 Orders Only [facility] [address] [place] [address] 2nd [address] [place] [address] Gumaro Craft MD Post-op pain (Primary Dx) [...] on file Legal Sex Female 5:31 AM PRODUCTION LABORER Gender Identity Female 06/19/2022 4:37 PM CDT [...] this topic Medical Devices Implanted Type Area Die Engraver Device Identifier Shelf Expiration Date Model / Serial / Lot Titanium Right: Hip Description:Titanium Right h op. Metal implant L big toe Procedures Procedure Name Priority Date/Time Associated Diagnosis Comments OH AN PROCEDURE PLACEHOLDER Routine 12/21/2024 8:37 AM CDT OH AN ELECTIVE ENDOTRACHEAL AIRWAY Routine 12/21/2024 8:37 AM CDT DEBRIDEMENT - HAND 12/21/2024 8: 05 AM CDT Nontraumatic rupture of extensor tendons of left hand and wrist Case Notes 12/08@[email or web address]: MISSING DPC email to Leighann. MARIELA Special Needs Pt takes WEYGOVY - for wt loss OH AN PROCEDURE PLACEHOLDER Routine 12/21/2024 7:42 AM CDT POCT PREOP SCREEN ([id number]-[id number] BG-HCT) Routine 12/21/2024 7:08 AM CDT from Last 3 Months Results * OH AN ELECTIVE ENDOTRACHEAL AIRWAY, OH AN PROCEDURE PLACEHOLDER (12/21/2024 8:37 AM CDT) [...] Padilla MD ANESTHESIA ORDERABLES Final Result * OH AN PROCEDURE PLACEHOLDER (12/21/2024 7:42 AM CDT) Db Groev MD - 12/21/2024 7:42 AM CDT Db [...] ORDERABLES Final Result * POCT Preop screen ([id number]-Hc-Zvj-BBN-Ur-Xdj-Hct) (12/21/2024 7:08 AM CDT) K POC 3.8 3.3 - 4.9 mmol/L Comment: Interpretive Data This method is not able to assess for hemolysis, which may falsely increase potassium concentrations. If further testing is needed to evaluate this result, consider in-laboratory plasma potassium. Current Interpretive Data was last revised on 2022. Glucose, fasting, POC 88 70 - 99 mg/dL [facility] Blood 12/21/2024 7:08 AM CDT 12/21/2024 7:08 AM CDT Gumaro Craft MD LAB POCT ORDERABLES - DEVICE Final Result [facility] Department [place] [address] from Last 3 Months Insurance [facility] Advance Directives For more information, please contact: [phone] * Full Code (Latest Code Status on File) Date Activated Date Inactivated Comments 06/19/2024 7:10 PM 06/20/2024 5:20 PM Care Teams Contact Lens Blocker And Cutter Relationship Specialty Start Date End Date Dillon Madrid MD [address] [place] [address] PCP - General Family Medicine 06/18/24 Janey Sotelo NP [facility] [place] [address] Referring Physician Otolaryngology 06/23/22
--- OUTSIDE RECORDS SUMMARY | 2025-03-12 20:21 | XMS_ITS | Clinical Summary ---
Author Organization [facility] Address [address] [place] [address] Care Team Providers Care Cashier Host/Hostess Name Role Phone Unavailable Primary Care Provider Unavailabl e Source Comments [facility],non-owned Affiliates and Associated Physician Practices is amultiple site organization consisting of ambulatory clinics and hospital sitesin [place], [place], [place] and [place]. This disclosure is being madepursuant to the Care Everywhere program and may not contain all information available regarding this patient. 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 Gender Identity Not on file Sexual Orientation Not on file Last Filed Vital Signs Vital Sign Reading Time Taken Comments Blood Pressure 126/84 11/18/2019 3:16 PM PRIMARY CLASS TEACHER Pulse 90 11/18/2019 3:16 PM PRIMARY CLASS TEACHER Temperature 36.7 C (98 F) 11/18/2019 3:16 PM PRIMARY CLASS TEACHER Respiratory Rate 20 11/18/2019 3:16 PM PRIMARY CLASS TEACHER Oxygen Saturation 97% 11/18/2019 3:16 PM PRIMARY CLASS TEACHER Inhaled Oxygen Concentration - - Weight 113.4 kg (250 lb) 11/18/2019 3:16 PM PRIMARY CLASS TEACHER Height 170.2 cm (5' 7) 11/18/2019 3:16 PM PRIMARY CLASS TEACHER Body Mass Index 39.16 11/18/2019 3:16 PM PRIMARY CLASS TEACHER Plan of Treatment Health Maintenance Due Date [...]
--- OUTSIDE RECORDS SUMMARY | 2025-03-12 20:21 | XMS_ITS | Clinical Summary ---
Author Organization [facility] Address [address] [place] [address] Care Team Providers Care Manager Analytical Name Role Phone Dillon Madrid MD Primary Care Provider [phone] None, Provider MD Unavailable Unavailable Allergies Active [...] Problems Problem Noted Date Diagnosed Date Sepsis ([facility]) 09/10/2023 Carpal tunnel syndrome 09/10/2023 3 Pain in wrist 09/10/2023 09/10/2023 Social History Tobacco Use Types Packs/Day Years Used Date Smoking Tobacco: Former Cigarettes Q uit: 03/03/2019 Smokeless Tobacco: Never Alcohol Use Standard Drinks/Week Comments Not Currently 0 (1 standard drink = 0.6 oz pure alcohol) 4-5x per year, Only socially [facility] Utilities Answer Date Recorded In the past 12 months has e [employer], gas, oil, or water [employer] threatened to shut off services in your [...] place to sleep or slept in a skilled nursing (including now)? 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 Pulse 67 09/12/2023 12:25 PM BOIL OFF WORKER Temperature 36.4 C (97.5 F) 09/12/2023 12:25 PM BOIL OFF WORKER Respiratory Rate 18 09/12/2023 12:2 5 PM BOIL OFF WORKER Oxygen Saturation 97% 09/12/2023 12: 25 PM BOIL OFF WORKER Inhaled Oxygen Concentration - - Weight 108.3 kg (238 lb 12.1 oz) 09/12/2023 4:08 AM BOIL OFF WORKER Height 170.2 cm (5' 7) 09/10/2023 2:58 AM BOIL OFF WORKER Body Mass Index 37.39 09/10/2023 2:58 AM BOIL OFF WORKER Plan of Treatment Health Maintenance Due [...] this topic Insurance [facility] Advance Directives * Full Code (Latest Code Status on File) Date Activated Date Inactivated Comments 09/10/2023 10:58 AM 09/12/2023 6:10 PM Care Teams Manager Analytical Relationship Specialty Start Date End Date Dillon Madrid MD [address] [address] PCP - General FAMILY PRACTICE 09/09/23 None, MD Ave 09/09/23
--- OUTSIDE RECORDS SUMMARY | 2025-03-12 20:21 | XMS_ITS | Clinical Summary ---
Author Organization [facility] Address [address] 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
[2025-03-12] MEDS: LIDOCAINE 1% LOCAL INJ 10 ML VIAL INFILTRATE (21:09)
[2025-03-12] MEDS: TETANUS,DIPHTHERIA,AC PERTUSSIS ADULT (0.5 ML) BOOSTRIX IM (21:09)
[2025-03-12] MEDS: HYDROcodone/acetaminophen (*CRX) 5-325 MG TABLET 1 TAB PO (21:09)
--- NOTE | 2025-03-12 21:33 | ED.WOUNDLAC ---
HPI - Wound/Laceration General Chief Complaint: Wound/Laceration Stated Complaint: left great toe injury Time Seen by Provider: 03/12/25 20:13 Source: patient Mode of arrival: ambulatory Limitations: no limitations History of Present Illness HPI narrative: Patient presents to the emergency department for left great toe injury. Reports she accidentally stubbed it. Reports pain, injury to the nail. Unsure of last tetanus vaccination. Reports decreased range of motion. Denies numbness. Related Data Home Medications ?Medication ?Instructions ?Recorded ?Confirmed ?Last Taken ?Type acai cook extract 500 mg capsule 500 mg PO DAILY 09/23/22 01/08/25 02/14/23 History acetaminophen 500 mg tablet 1,000 mg PO Q6H PRN Headache 09/23/22 01/08/25 Unknown History diclofenac sodium 75 mg 75 mg PO BID 09/23/22 01/08/25 02/14/23 History tablet,delayed release estradiol 2 mg tablet 2 mg PO DAILY 09/23/22 01/08/25 02/14/23 History semaglutide (weight loss) 2.4 2.4 mg subcut WEEKLY 09/23/22 01/08/25 Unknown History mg/0.75 mL subcutaneous pen injector (Wegovy) meclizine 25 mg tablet 25 mg PO BID PRN 06/28/24 01/08/25 Unknown History nitroglycerin 0.4 mg sublingual 0.4 mg sublingual Q5M PRN 06/28/24 01/08/25 Unknown History tablet zolpidem 5 mg tablet 5 mg PO QHS 06/28/24 01/08/25 Unknown History Allergies Allergy/AdvReac Type Severity Reaction Status Date / Time meperidine Allergy Unknown Rash Verified 03/12/25 19:23 Review of Systems Review of Systems: All systems reviewed & are unremarkable except as noted in HPI and below PMFSH Past Medical History Medical History Partial small bowel obstruction (06/2023) Asthma JUAN (obstructive sleep apnea) no longer needs cpap 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 Social History Social History Smoking packs per day: 1 Smoking cigarettes per day: 20.0 Years smoked: 40 Smoking pack-years: 40.00 Smoking status: Former smoker Tobacco type: cigarettes Second hand tobacco smoke exposure: Yes Smoking end date: 11/18/17 Alcohol intake: current Drinks per week: 1 Alcohol use details: 3-4/YEAR Substance use: never Substance use type: does not use Do You Feel Safe in your Home?: Yes Lack of Transportation: No Lack of Food: Never True Current Housing: I Have Housing Concerned About Future Housing: No Difficulty Paying Gas/Electric Bills: Decline to Answer Difficulty Paying for Meds: No Currently Unemployed: No Education: Master's Degree or Higher Difficulty w/ Childcare or Family Care: No Living arrangements: with family Additional living arrangements comments: SON Occupation/Education: occupation 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 HEAD: Normocephalic, atraumatic. EYES: EOMI. EXTREMITIES: Decreased active ROM in the left great toe due to pain. No obvious deformity. Normal DP pulse. Normal sensation. Bleeding at the base of the nail SKIN: Warm, dry, no rash. NEURO: No focal deficits. Alert and oriented x3. PSYCH: Normal mood and affect Course Vital Signs Vital signs: Vital Signs Temperature 98.0 F 03/12/25 18:02 Pulse Rate 85 03/12/25 18:02 Respiratory Rate 18 03/12/25 18:02 Blood Pressure 135/79 03/12/25 18:02 Pulse Oximetry 96 03/12/25 18:02 Oxygen Delivery Room Air 03/12/25 18:02 Temperature 97.9 F 03/12/25 22:37 Pulse Rate 76 03/12/25 22:37 Respiratory Rate 16 03/12/25 22:37 Blood Pressure 132/70 03/12/25 22:37 Pulse Oximetry 97 03/12/25 22:37 Oxygen Delivery Room Air 03/12/25 19:22 Procedures Orthopedic Splinting/Casting Injury #1: Splinting/Casting Date: 03/12/25 Splinting/Casting Time: 23:16 Side: left Lower Extremity Injury Location: toe Lower Extremity Immobilizer: braden tape Pre-Formed: post op shoe Pre-Procedure Neuro Vascular Exam: normal Post-Procedure Neuro Vascular Exam: normal Other Orthopedic Equipment: crutches MDM - Wound/Laceration MDM Narrative Medical decision making narrative: Patient presents the emergency department after an injury to the left great toe. She is neurovascularly intact. X-ray shows oblique, nondisplaced, intra-articular fracture of the 1st distal phalanx. Patient had a mild amount of bleeding at the base of the nail, but the nail is still well attached. Patient was bandaged, braden taped. Given post op shoe and crutches. Will follow up with Dr. Rosa who did her previous foot surgery. She was given warnings to return to the ER Differential Diagnosis Differential diagnosis: Likely laceration and other (nail avulsion, toe fracture) Imaging Data Radiologist's impression: ITS Impressions Toe X-Ray 03/12/25 21:36 IMPRESSION: Oblique, nondisplaced, intra-articular fracture of the first distal phalanx. Critical Care Time Critical Care Time Critical Care Time: No Discharge Plan Discharge Clinical Impression: Closed fracture of left great toe Patient Disposition: Home Condition: Stable Instructions: Antibiotic Form, Toe Fracture (ED) Additional Instructions: Return to the ER if you experience fever, redness and swelling of your extremity, numbness or any other symptoms that are concerning to you Wear braden tape/post op shoe and use crutches. No weight on the affected leg. Ice and elevate extremity. Pain medication as needed and directed. Take oral antibiotic as prescribed Follow up with your doctor for further care. Patient Language: Luxembourgish Prescriptions: New hydrocodone-acetaminophen 5-325 mg tablet 1 tablet PO Q6H PRN (Reason: pain) Qty: 20 0RF cephalexin 500 mg capsule 500 mg PO Q8H 5 Days Qty: 15 0RF No Action meclizine 25 mg tablet 25 mg PO BID PRN nitroglycerin 0.4 mg tablet, sublingual 0.4 mg sublingual Q5M PRN Rx Instructions: do not exceed 3 doses per episode zolpidem 5 mg tablet 5 mg PO QHS Rx Instructions: may repeat once if no response in 30-60 minutes atorvastatin 20 mg tablet 20 mg PO DAILY Qty: 90 1RF albuterol sulfate 90 mcg/actuation HFA aerosol inhaler 2 inh inhalation QID PRN (Reason: shortness of breath or wheezing) Qty: 8.5 0RF acetaminophen 500 mg Tablet 1,000 mg PO Q6H PRN (Reason: Headache) estradiol 2 mg Tablet 2 mg PO DAILY diclofenac sodium 75 mg Tablet,Delayed Release (Dr/Ec) 75 mg PO BID acai cook extract 500 mg Capsule 500 mg PO DAILY Wegovy 2.4 mg/0.75 mL pen injector 2.4 mg SUBCUT WEEKLY Patient Comments: TAKES ON WEDNESDAY EVENING pantoprazole 40 mg tablet,delayed release (DR/EC) See Rx Instructions .ROUTE .COMPLEX Qty: 30 5RF Dose Instruction: TAKE 1 TABLET BY MOUTH ONCE DAILY IN THE MORNING Rx Instructions: TAKE 1 TABLET BY MOUTH ONCE DAILY IN THE MORNING Follow-up/Referrals: Tacho Rosa Jr., DPM [Physician] - Dillon Madrid MD [Primary Care Provider] -
[2025-03-12 22:37] VITALS: BP 132/70; PULSE 76; RESP 16; TEMP 36.6; O2SAT 97
== END 2025-03-12 23:24 | disposition home or self-care (01) ==
PROVIDERS: Emergency Provider Physician Assistant; PCP Family Medicine Adolescent Medicine
DX: S92.425A Nondisplaced fracture of distal phalanx of left great toe, initial encounter for closed fracture (principal); Z23 Encounter for immunization; Z87.891 Personal history of nicotine dependence; W22.8XXA Striking against or struck by other objects, initial encounter
CPT/HCPCS: 73660; 90471; 90715; 99284; A9270; J2003